=== PATIENT | male | born 1945 | race Caucasian/White ===

== ENCOUNTER 2016-08-19 22:42 | Inpatient (IN) | payer OTHER, MEDICARE ==
[2016-08-19 23:09] VITALS: BMI 16.2
--- NOTE | 2016-08-19 23:42 | PDOC ---
History of Present Illness - General Chief Complaint: Weakness Stated Complaint: WEAKNESS History Source: Patient Exam Limitations: No Limitations - History of Present Illness Initial Comments: 08/19/16 23:41 Patient is a 70 year old male with h/o Liver disease, ascietes due to etoh abuse , does not drink anymore, COPD, appendectomy c/o weakness and unable to urinate. Patient states she self cath but has not been able to pass the catheter for the past 3 days. States he uses a walker but very weak today unable to ambulate. Denies fever, chills, nausea, vomiting PMHD: Dr Berlin Marquez PMHX: as above PSochx; (+) cig 1PPD, etoh stopped drinking, neg drug PFamHX: noncontributory ALL: NKDA GENERAL/CONSTITUTIONAL: [No fever or chills. No weakness. No weight change.] HEAD, EYES, EARS, NOSE AND THROAT: [No change in vision. No ear pain or discharge. No sore throat.] CARDIOVASCULAR: [No chest pain or shortness of breath.] RESPIRATORY: [No cough, wheezing, or hemoptysis.] GASTROINTESTINAL: (+) abdominal distention, No nausea, vomiting, diarrhea or constipation. No rectal bleeding.] GENITOURINARY: [No dysuria, frequency, or change in urination.] MUSCULOSKELETAL: [No joint or muscle swelling or pain. No neck or back pain.] SKIN AND BREASTS: [No rash or easy bruising.] NEUROLOGIC: [No headache, vertigo, loss of consciousness, or loss of sensation.] PSYCHIATRIC: [No depression or anxiety.] ENDOCRINE: [No increased thirst. No abnormal weight change.] HEMATOLOGIC/LYMPHATIC: [No anemia, easy bleeding, or history of blood clots.] ALLERGIC/IMMUNOLOGIC: [No hives or skin allergy. No latex allergy.] GENERAL: [The patient is awake, alert, and fully oriented, in no acute distress , cachectic .] HEAD: [Normal with no signs of trauma.] EYES: [Pupils equal, round and reactive to light, extraocular movements intact, sclera slight icteric, conjunctiva clear.] ENT: [Ears normal, nares patent, oropharynx clear without exudates. Moist mucous membranes.] NECK: [Normal range of motion, supple without lymphadenopathy, JVD, or masses.] LUNGS: [Breath sounds equal, clear to auscultation bilaterally. No wheezes, and no crackles.] HEART: [Regular rate and rhythm, normal S1 and S2 without murmur, rub.] ABDOMEN: [Soft,mild tenderness, (+) distended, normoactive bowel sounds. No guarding, no rebound. No masses.] EXTREMITIES: [Normal range of motion, no edema. No clubbing or cyanosis. No cords, erythema, or tenderness.] NEUROLOGICAL: [Cranial nerves II through XII grossly intact. Normal speech, normal gait.] PSYCH: [Normal mood, normal affect.] SKIN: [Warm, Dry, normal turgor, no rashes or lesions noted.] Past History - Past Medical History Allergies/Adverse Reactions: Allergies Allergy/AdvReac Type Severity Reaction Status Date / Time No Known Allergies Allergy Verified 08/19/16 23:10 Home Medications: Ambulatory Orders Colchicine [Colcrys] 0.6 mg PO DAILY 08/20/16 Rifaximin [Xifaxan] 200 mg PO DAILY 08/20/16 Salmeterol/Fluticasone [Advair 250Mcg/50Mcg -] 2 spray .ROUTE BID 08/20/16 Tiotropium [place] [Spiriva] 1 inh IH DAILY 08/20/16 Asthma: Yes Disorders: Yes (Kidney diseases) - Immunization History Immunization Up to Date: No - Psycho/Social/Smoking Cessation Hx Anxiety: No Suicidal Ideation: No Smoking History: Current every day smoker Have you smoked in the past 12 months: Yes Information on smoking cessation initiated: No Hx Alcohol Use: No Drug/Substance Use Hx: No Substance Use Type: None *Physical Exam - Vital Signs Last Vital Signs Temp Pulse Resp BP Pulse Ox 96.6 F L 84 15 94/61 96 08/19/16 23:06 08/19/16 23:06 08/19/16 23:06 08/19/16 23:06 08/19/16 23:06 ED Treatment Course - LABORATORY CBC & Chemistry Diagram: 08/20/16 01:03 08/20/16 01:40 - RADIOLOGY Radiology Studies Ordered: Category Date Time Status CHEST X-RAY PORTABLE* [RAD] Stat Radiology 08/19/16 23:39 Ordered Medical Decision Making - Medical Decision Making 08/20/16 00:17 Patient is a 70 year old male with h/o Liver disease, ascietes due to etoh abuse , does not drink anymore, COPD, appendectomy c/o weakness and unable to urinate. Patient mostly has retension due to obstruction will do US and pass a underwood. Labs, and US done bedside bladder volu 900ml EKG SR 86, RSD, low voltage CXR neg for acute changes Laboratory Tests 08/20/16 08/20/16 01:03 01:40 WBC 11.3 H Hgb 11.7 Hct 35.8 Plt Count 258 Sodium 135 L Potassium 5.3 H Chloride 97 L Carbon Dioxide 23 Anion Gap 15 BUN 70 H Creatinine 3.3 H Troponin I 0.02 B-Natriuretic Peptide 3397.71 H attempted to pass underwood x 2 and coudau x 2 with out success. Urology paged no response Patient c/o of vomiting and having abd pain, feeling nauseous and difficulty breathing. Patient found to be oxygenation at 80-84 % on 2L NC, will put the patient on BiPAP and given Solumedrol. Given Zofran 4 mg IV will get cxr r/o aspiration, abg 08/20/16 05:46 Case d/w with Dr. Babin who will come to see the patient today. repeat CXR unchanged from prior no aspiration pattern noted. 08/20/16 05:52 D/w with Dr. Carty aware of above will admit to [facility] *DC/Admit/Observation/Transfer Diagnosis at time of Disposition: Acute kidney injury, Urinary retention, Weakness - Discharge Dispostion Condition at time of disposition: Fair Admit: Yes
[2016-08-20 01:47] LABS: BASOPHIL 0.8 % (0-2.0); EOSINOPHIL 0.3 % (0-4.5); MCH 30.1 pg (25.7-33.7); MCHC 32.8 g/dl (32.0-35.9); MEAN CELL VOLUME 91.8 fl (80-96); MEAN PLT VOLUME 10.5 fl (7.5-11.1); NEUTROPHILS 80.5 % (42.8-82.8); PLATELET COUNT 258 K/MM3 (134-434); RDW 16.7 % (11.9-15.9); WHITE BLOOD COUNT 11.3 K/mm3 (4.0-10.0)
[2016-08-20 02:16] LABS: CALCIUM 8.9 mg/dL (8.5-10.1); COCKROFT - GAULT 14.48; CREATININE 3.3 mg/dL (0.7-1.3); TOT PROT 6.7 g/dl (6.4-8.2)
[2016-08-20 02:19] LABS: TROPONIN I 0.02 ng/ml (0.00-0.05)
[2016-08-20] MEDS ORDERED: ONDANSETRON 4 MG/2 ML VIAL IVPUSH ONE (03:14)
[2016-08-20] MEDS ORDERED: ONDANSETRON 4 MG/2 ML VIAL ONE (03:31)
--- NOTE | 2016-08-20 04:25 | PN ---
<BharathihariFay - Last Filed: 08/20/16 04:31> Teaching Attending Note ATTENDING PHYSICIAN STATEMENT I saw and evaluated the patient. I reviewed the resident's note and discussed the case with the resident. I agree with the resident's findings and plan as documented. SUBJECTIVE: 70 yo M with a PMHx of liver disease questionable cirrhosis, prior Hx of ETOH abuse, does not drink anymore, COPD, appendectomy who presents with inability to urinate. Patient is unable to soft catheterize for 3 days. In ED, underwood and catheter were attempted to pass, but unable to due to obstruction. OBJECTIVE: Last Vital Signs Temp Pulse Resp BP Pulse Ox 97.5 F L 90 28 H 98/64 100 08/20/16 02:51 08/20/16 02:51 08/20/16 02:51 08/20/16 02:51 08/20/16 02:51 CBCD WBC 11.3 K/mm3 (4.0-10.0) H 08/20/16 01:03 RBC 3.90 M/mm3 (4.00-5.60) L 08/20/16 01:03 Hgb 11.7 GM/dL (11.7-16.9) 08/20/16 01:03 Hct 35.8 % (35.4-49) 08/20/16 01:03 MCV 91.8 fl (80-96) 08/20/16 01:03 MCHC 32.8 g/dl (32.0-35.9) 08/20/16 01:03 RDW 16.7 % (11.9-15.9) H 08/20/16 01:03 Plt Count 258 K/MM3 (134-434) 08/20/16 01:03 MPV 10.5 fl (7.5-11.1) 08/20/16 01:03 CMP Sodium 135 mmol/L (136-145) L 08/20/16 01:40 Potassium 5.3 mmol/L (3.5-5.1) H 08/20/16 01:40 Chloride 97 mmol/L (98-107) L 08/20/16 01:40 Carbon Dioxide 23 mmol/L (21-32) 08/20/16 01:40 Anion Gap 15 (8-16) 08/20/16 01:40 BUN 70 mg/dL (7-18) H 08/20/16 01:40 Creatinine 3.3 mg/dL (0.7-1.3) H 08/20/16 01:40 Creat Clearance w eGFR 18.57 (>60) 08/20/16 01:40 Calcium 8.9 mg/dL (8.5-10.1) 08/20/16 01:40 Total Bilirubin 1.0 mg/dL (0.2-1.0) 08/20/16 01:40 AST 38 U/L (15-37) H 08/20/16 01:40 ALT 18 U/L (12-78) 08/20/16 01:40 Alkaline Phosphatase 283 U/L (45-117) H 08/20/16 01:40 Total Protein 6.7 g/dl (6.4-8.2) 08/20/16 01:40 Albumin 2.0 g/dl (3.4-5.0) L 08/20/16 01:40 ASSESSMENT AND PLAN: 70 yo M with a PMHx of h/o Liver disease, ascites due to etoh abuse, does not drink anymore, COPD, appendectomy who presents with inability to urinate found to be in acute on chronic renal failure. 1.) Acute on chronic renal failure -baseline creatinine 1.6 -Most likely due to obstruction -Check urine lytes -Renal US -Urology consult -Check U culture 2.) Hyperkalemia -Kxylate -Insulin and dextrose -Repeat K -ECG 3.) COPD -Continue advair and spiriva -Albuterol PRN 4.) Gout -Decrease coltrazine to 0.3 mg QD 5.) Hx of liver disease -Continue rifaximin DVT ppx -Low risk -SCDs Documentation is prepared by Fay Wei acting as biomedical equipment specialist for Danielle Carty D.O. <Danielle Carty - Last Filed: 08/20/16 06:16> Teaching Attending Note Name of Resident: Betzy Hardy COPD Exacerbation - BIPAP/ABG - C/w Duonebs - S/P Solumedrol in ED, continue 60 q12 - RAISS Liver Cirrhosis with Ascites - Renal failure may be due to increased pressure from Ascites - Abdominal US - IR consult for drainage - Fluid Studies/Cx Acute Hypoxic Respiratory Failure Ddx: ? COPD/aspiration Pna (pt. was vomiting prior), Less likely PE (low Wells score) - Wells Score 0 - C/W BIPAP - STAT ABG/CXR - C/W Nebs Vomiting - CT Abdomen wo Con - NPO Hyperkalemia - No Kayexlate- NPO - Insulin/Dextrose/Nebs - FU EKG Admit to Med- Tele with Low threshold for ICU Physical: VS: Vital Signs Period Temp Pulse Resp BP Sys/Rai Pulse Ox Last 24 Hr 96.6 F-97.5 F 84-90 15-28 94-98/61-64 2-100 GEN: Cachetic gentleman resting in bed on Bipap, AA0 X3 HEENT: NCAT, PERRL CARD: RRR S1, S2 Resp: Coarse Breath sounds all lopez, mild expiratory wheezing ABD: Distended, BS present, Non- Tender to palpation, caput medusa EXT: - C/C/E
--- NOTE | 2016-08-20 04:53 | HP ---
CHIEF COMPLAINT: "i cant pee" PCP: Dr Berlin Marquez urologist Dr Becerril HISTORY OF PRESENT ILLNESS: This is a 70 year old M with PMH of atonic bladder for years, Past EtOH abuse ( quit), alcoholic Liver disease, ascietes and COPD, who presented with weakness and unable to insert straight cath for 3 days. He has been trying to insert cath repeatedly and caused some bleeding. He has not been hydrating during this period. He uses cath 2x/day and has has uti 2x before. He sees a urologist Dr Becerril in [place] who checked his prostate a few month ago w/o acute findings. He does not know why he acquired atonic bladder and denies back injury or cva. He has been progressively weaker with increased abd distention for the past few days. He reports 20 lb weight loss despite decent appetite and constant non bloody nonmelenous diarrhea for the past 3 mo. He had a colonoscopy a few yrs ago at which time polyps were removed. He has had several liters of ascites drained a few months ago. At baseline he ambulates with a walker but unable to do so recently due to weakness. He is a current heady smoker and has baseline sob with cough productive of yellow sputum, not on O2, whihc remained at baseline. He denies fever, chills. Bladder scan in ED 900cc. Unable to insert underwood. In ed he became nauseous and had several episodes of NBNB vomiting. He then desats RA 78% and is placed on BIPAP. ER course was notable for: (1)labs (2)cxr (3)zofran Recent Travel: denies PAST MEDICAL HISTORY: as above PAST SURGICAL HISTORY: appendectomy Social History: Smokin pack/day Alcohol:past abuse Drugs: denies Family History: prostate ca, skin ca Allergies No Known Allergies Allergy (Verified 08/19/16 23:10) HOME MEDICATIONS: Home Medications Medication Instructions Recorded Colchicine [Colcrys] 0.6 mg PO DAILY 08/20/16 Rifaximin [Xifaxan] 200 mg PO DAILY 08/20/16 Salmeterol/Fluticasone [Advair 2 spray .ROUTE BID 08/20/16 250Mcg/50Mcg -] Tiotropium [place] [Spiriva] 1 inh IH DAILY 08/20/16 REVIEW OF SYSTEMS CONSTITUTIONAL: Absent: fever, chills, diaphoresis HEENT: Absent: rhinorrhea, nasal congestion, throat pain CARDIOVASCULAR: Absent: chest pain, syncope, palpitations, irregular heart rate, lightheadedness , peripheral edema RESPIRATORY: Absent: orthopnea, wheezing, stridor, hemoptysis GASTROINTESTINAL: Absent: abdominal pain, constipation, melena, hematochezia GENITOURINARY: Absent: dysuria, flank pain MUSCULOSKELETAL: Absent: myalgia, arthralgia SKIN: Absent: rash, itching, pallor HEMATOLOGIC/IMMUNOLOGIC: Absent: easy bleeding, easy bruising ENDOCRINE: Absent: heat intolerance, cold intolerance NEUROLOGIC: Absent: headache, focal weakness or paresthesias PSYCHIATRIC: Absent: anxiety, depression PHYSICAL EXAMINATION Vital Signs - 24 hr 08/19/16 08/20/16 08/20/16 23:06 01:03 02:51 Temperature 96.6 F L 97.5 F L Pulse Rate 84 Pulse Rate [ 90 Right Radial] Respiratory 15 28 H Rate Blood Pressure 94/61 Blood Pressure 98/64 [Left Arm] O2 Sat by Pulse 96 2 L 100 Oximetry (%) GENERAL: Awake, alert, and fully oriented, in mild distress, very cachectic. HEAD: Normal with no signs of trauma. EYES: Pupils equal, round and reactive to light, extraocular movements intact, sclera anicteric, conjunctiva clear. No lid lag. EARS, NOSE, THROAT: dry mucous membranes. NECK: supple LUNGS: diffusely reduced, coarse breath sounds HEART: Regular rate and rhythm, normal S1 and S2 ABDOMEN: very distended, caput medusa, + fluid wave, hepatomegaly, full bladder , diffusely reduced bowel sounds MUSCULOSKELETAL: No CVA tenderness. UPPER EXTREMITIES: 2+ pulses, No peripheral edema. LOWER EXTREMITIES: 2+ pulses, warm, well-perfused. No calf tenderness. No peripheral edema. NEUROLOGICAL: Cranial nerves II-XII grossly intact. slightly dyspneic speech. PSYCHIATRIC: Cooperative. Good eye contact. Appropriate mood and affect. SKIN: Warm, dry Laboratory Results - last 24 hr 08/20/16 08/20/16 01:03 01:40 WBC 11.3 H RBC 3.90 L Hgb 11.7 Hct 35.8 MCV 91.8 MCHC 32.8 RDW 16.7 H Plt Count 258 MPV 10.5 Neutrophils % 80.5 Lymphocytes % 14.8 Monocytes % 3.6 L Eosinophils % 0.3 Basophils % 0.8 Sodium 135 L Potassium 5.3 H Chloride 97 L Carbon Dioxide 23 Anion Gap 15 BUN 70 H Creatinine 3.3 H Creat Clearance w eGFR 18.57 Random Glucose 84 Calcium 8.9 Total Bilirubin 1.0 AST 38 H ALT 18 Alkaline Phosphatase 283 H Creatine Kinase 27 L Troponin I 0.02 B-Natriuretic Peptide 3397.71 H Total Protein 6.7 Albumin 2.0 L ASSESSMENT/PLAN: This is a 70 year old M with PMH of atonic bladder for years, Past EtOH abuse ( quit), alcoholic Liver disease, ascietes and COPD, who presented with weakness and unable to insert straight cath for 3 days. OLIVER -likely due to obstruction at bladder level, creat 3.3, BNP elevated due to renal failure -chronic atonic bladder with possible prostate cause vs ascites causing abd compartment syndrome -flomax 0.8, attempt to insert underwood -UA -Urology consult -US kidneys, bladder, prostate -urine lytes, creat, Na -Renal consult -Start IV hydration once underwood inserted Acute hypoxic respiratory failure, possible COPD exacerbation -CXR no infiltrate -abg -bipap -spiriva, albuterol -s/p medrol 125 ED, continue 40 q 8 alcoholic liver disease -severe ascites -calculate MELD once IRN comes back -CT abd r/o compartment syndrome -US abd ascites -NPO Diarrhea x 3 mo -c diff toxin Cachexia -recent 20 lb weight loss -nutrition consult Current smoker -counseled on quitting -nicotine patch FEN no ivf hyperkalemia treated, f/u K NPO except meds SCD Dispo: tele Visit type - Emergency Visit Emergency Visit: Yes Care time: The patient presented to the Emergency Department on the above date and was hospitalized for further evaluation of their emergent condition. - New Patient This patient is new to me today: Yes Date on this admission: 08/20/16 - Critical Care Critical Care patient: No
[2016-08-20] MEDS ORDERED: ALBUTEROL SO4 2.5/IPRATROPIUM 0.5 INH SOL 3 ML VIAL.NEB. NEB ONE ×3 (05:15→05:20)
[2016-08-20] MEDS ORDERED: methylPREDNISolone NA SUCC 125 MG/2 ML VIAL ONE (05:21)
[2016-08-20] MEDS ORDERED: ALBUTEROL SO4 0.083% IH SOL 2.5 MG/3 ML VIAL.NEB. NEB PRN ×2 (05:53→14:56)
[2016-08-20] MEDS ORDERED: TAMSULOSIN HCL 0.4 MG CAP.ER.24H (FP) PO ONE (05:53)
[2016-08-20] MEDS ORDERED: INSULIN REGULAR HUMAN 100 UNITS/ML *VIAL IVPUSH ONE (06:19)
[2016-08-20] MEDS ORDERED: CALCIUM GLUCONATE 10% - 1,000 MG/10 ML VIAL IVPUSH ONE (06:20)
[2016-08-20] MEDS ORDERED: DEXTROSE 50%-WATER 50 ML VIAL IVPUSH ONE (06:20)
[2016-08-20] MEDS ORDERED: TAMSULOSIN HCL 0.4 MG CAP.ER.24H (FP) ONE (06:25)
[2016-08-20] MEDS ORDERED: methylPREDNISolone NA SUCC 125 MG/2 ML VIAL IVPB ONE (06:30)
[2016-08-20] MEDS ORDERED: DEXTROSE 50%-WATER 50 ML DISP.SYRIN ONE (06:52)
[2016-08-20 07:21] LABS: ALLENS TEST POSITIVE; ART PUNCT SITE RIGHT RADIAL; ARTERIAL BLD GAS O2 SATURATION 88.2 % (90-98.9); ARTERIAL BLOOD GAS BASE EXCESS -4.7 meq/l (-2-2); ARTERIAL BLOOD GAS HCO3 18.9 meq/L (22-26); ARTERIAL BLOOD GAS pH 7.39 (7.35-7.45); LPM/O2% 60%; MECH. VENT. BIPAP; PT. ON O2? YES; TYPE OF O2 BIPAP; VENT RATE 14
[2016-08-20 08:38] LABS: MCHC 33.5 g/dl (32.0-35.9); MEAN CELL VOLUME 92.5 fl (80-96); MEAN PLT VOLUME 11.1 fl (7.5-11.1); PLATELET COUNT 232 K/MM3 (134-434); RDW 16.5 % (11.9-15.9); WHITE BLOOD COUNT 9.6 K/mm3 (4.0-10.0)
[2016-08-20 08:44] LABS: CALCIUM 9.4 mg/dL (8.5-10.1); COCKROFT - GAULT 14.48; CREATININE 3.3 mg/dL (0.7-1.3); MAGNESIUM 2.2 mg/dL (1.8-2.4); PHOSPHOROUS 5.9 mg/dL (2.5-4.9)
[2016-08-20 09:11] LABS: INR 1.11 (0.82-1.09); PROTHROMBIN TIME (PATIENT) 12.2 SEC (9.98-11.88)
[2016-08-20 09:14] LABS: ACTIVATED PTT 38.7 SECONDS (26.9-34.4)
--- NOTE | 2016-08-20 09:17 | PN ---
Progress Note (short form) - Note Progress Note: PATIENT WITH HISTORY OF ATONIC BLADDER WHO HAS NOT BEEN ABLE TO SELF CATH IN THREE DAYS,. MULTIPLE ATTEMPTS BY ER STAFF WERE UNSUCCESSFUL PATIENT IS ON THE ADD-ON SCHEDULE FOR THE OR TODAY KEEP NPO
[2016-08-20] MEDS ORDERED: COLCHICINE 0.6 MG TABLET (FP) PO SCH (10:00)
[2016-08-20] MEDS ORDERED: methylPREDNISolone NA SUCC 125 MG/2 ML VIAL IVPB SCH (10:00)
[2016-08-20] MEDS ORDERED: NICOTINE 21 MG/24 HOURS TOPICAL PATCH TD SCH (10:00)
[2016-08-20] MEDS ORDERED: FLUTICASONE/SALMETEROL 100 MCG/50 MCG DISKUS IH SCH (10:00)
[2016-08-20] MEDS ORDERED: RIFAXIMIN 200 MG TABLET PO SCH (10:00)
[2016-08-20] MEDS ORDERED: ACLIDINIUM BROMIDE 400 MCG/INH AERO.POWD IH SCH (10:00)
[2016-08-20] MEDS ORDERED: LIDOCAINE HCL 2% JELLY 10 ML CARTRIDGE ONE (12:35)
--- NOTE | 2016-08-20 13:30 | EKG ---
Test Reason : Blood Pressure : / mmHG Vent. Rate : 086 BPM Atrial Rate : 086 BPM P-R Int : 162 ms QRS Dur : 062 ms QT Int : 362 ms P-R-T Axes : 090 076 071 degrees QTc Int : 433 ms NORMAL SINUS RHYTHM RIGHT ATRIAL ENLARGEMENT BASELINE ARTIFACT LOW VOLTAGE QRS BORDERLINE ECG NO PREVIOUS ECGS AVAILABLE Confirmed by MARGARET BILLINGS MD ([id number]) on 08/20/2016 1:30:21 PM Referred By: Confirmed By:MARGARET BILLINGS MD
--- NOTE | 2016-08-20 13:41 | CONSULT ---
Consult Consult Specialty:: Nephrology Reason for Consultation:: CKD - History of Present Illness Chief Complaint: weakness and inability to self catheterize History of Present Illness: Pt is a 70 year old male with pmhx of liver cirrhosis, CKD, hx of etoh abuse, COPD and incontinence. He says he has history of CKD. He self catheterizes twice per day. He also complains of weakness. He does have shortness of breath. He also complains of ascites. He was taken to IR and had about 7 liters drained. He is going to the OR to have a underwood catheter placed. He denies fevers or chills. - History Source History Provided By: Patient, Medical Record - Past Medical History Pulmonary: Yes: COPD Hepatobiliary: Yes: Cirrhosis Renal/: Yes: Neurogenic Bladder - Past Surgical History Past Surgical History: Yes: Appendectomy - Alcohol/Substance Use Hx Alcohol Use: No - Smoking History Smoking history: Current every day smoker Have you smoked in the past 12 months: Yes Home Medications - Allergies Allergies/Adverse Reactions: Allergies Allergy/AdvReac Type Severity Reaction Status Date / Time No Known Allergies Allergy Verified 08/19/16 23:10 - Home Medications Home Medications: Ambulatory Orders Colchicine [Colcrys] 0.6 mg PO DAILY 08/20/16 Rifaximin [Xifaxan] 200 mg PO DAILY 08/20/16 Salmeterol/Fluticasone [Advair 250Mcg/50Mcg -] 2 spray .ROUTE BID 08/20/16 Tiotropium [place] [Spiriva] 1 inh IH DAILY 08/20/16 Family Disease History - Family Disease History Family History: Denies Review of Systems - Review of Systems Constitutional: reports: Malaise Eyes: reports: No Symptoms HENT: reports: No Symptoms Neck: reports: No Symptoms Cardiovascular: reports: Shortness of Breath Respiratory: reports: SOB on Exertion Gastrointestinal: reports: Bloating, Other (ascites) Genitourinary: reports: Dysuria Musculoskeletal: reports: No Symptoms Integumentary: reports: No Symptoms Neurological: reports: No Symptoms Endocrine: reports: No Symptoms Psychiatric: reports: No Symptoms Physical Exam Vital Signs: Vital Signs Temperature 98.6 F 08/20/16 06:17 Pulse Rate 90 08/20/16 11:00 Respiratory Rate 26 H 08/20/16 11:00 Blood Pressure 122/64 08/20/16 11:00 O2 Sat by Pulse Oximetry (%) 97 08/20/16 11:00 Constitutional: Yes: Calm Eyes: Yes: Conjunctiva Clear HENT: Yes: Atraumatic Neck: Yes: Supple Cardiovascular: Yes: S1, S2 Respiratory: Yes: On Venti-Mask, Wheezes Gastrointestinal: Yes: Soft Musculoskeletal: Yes: Muscle Weakness Edema: No Neurological: Yes: Oriented Psychiatric: Yes: Oriented Labs: CBC, BMP 08/20/16 08:00 08/20/16 08:00 Laboratory Tests 08/20/16 08/20/16 08/20/16 01:03 01:40 08:00 WBC 11.3 H 9.6 Hgb 11.7 12.1 Plt Count 258 232 Sodium 135 L Potassium 5.3 H Chloride 97 L Carbon Dioxide 23 Anion Gap 15 BUN 70 H Creatinine 3.3 H Phosphorus Magnesium AST 38 H ALT 18 Alkaline Phosphatase 283 H Troponin I 0.02 B-Natriuretic Peptide 3397.71 H Total Protein 6.7 Albumin 2.0 L 08/20/16 08:00 WBC Hgb Plt Count Sodium 136 Potassium 4.9 Chloride 98 Carbon Dioxide 22 Anion Gap 16 BUN 71 H Creatinine 3.3 H Phosphorus 5.9 H Magnesium 2.2 AST ALT Alkaline Phosphatase Troponin I B-Natriuretic Peptide Total Protein Albumin Imaging - Results Cat Scan: Report Reviewed (ascites and bladder distention) Problem List - Problems (1) Urinary retention Code(s): R33.9 - RETENTION OF URINE, UNSPECIFIED (2) Liver cirrhosis Code(s): K74.60 - UNSPECIFIED CIRRHOSIS OF LIVER (3) CKD (chronic kidney disease) Code(s): N18.9 - CHRONIC KIDNEY DISEASE, UNSPECIFIED Assessment/Plan Current Medications Generic Name Dose Route Start Last Admin Trade Name Freq PRN Reason Stop Dose Admin Aclidinium [place] 1 puff 08/20/16 10:00 Tudorza - IH BID DEMETRIUS Albuterol Sulfate 1 amp 08/20/16 05:53 Ventolin 0.083% Nebulizer Soln - NEB Q4H PRN SHORT OF BREATH/WHEEZING Methylprednisolone Sodium Succinate 40 mg 08/20/16 14:00 Solu-Medrol - IVPB TID DEMETRIUS Nicotine 21 mg 08/20/16 10:00 Nicoderm Patch - TD DAILY DEMETRIUS Fluticasone/Salmeterol 1 puff 08/20/16 10:00 Advair 100mcg/50mcg - IH BID DEMETRIUS Impression 1. CKD with unclear baseline creatinine 2. liver cirrhosis 3. COPD 4. hx of etoh abuse 5. ascites 6. dysuria Plan - check ua - repeat labs in am - will hold of diuretics as pt had about 7 liters removed - discussed with urology, they will place underwood catheter - monitor output - will follow
[2016-08-20] MEDS ORDERED: PROPOFOL 20 ML ONE (13:48)
[2016-08-20] MEDS ORDERED: ROCURONIUM BROMIDE 50 MG/5 ML VIAL ONE (13:48)
[2016-08-20] MEDS ORDERED: methylPREDNISolone NA SUCC 40 MG/1 ML VIAL IVPB SCH (14:00)
[2016-08-20] MEDS ORDERED: MIDAZOLAM HCL 2 MG/2 ML SINGLE DOSE VIAL ONE (14:12)
[2016-08-20] MEDS ORDERED: ceFAZolin SODIUM 1 GM VIAL IVPB ONE (14:15)
[2016-08-20] MEDS ORDERED: LIDOCAINE HCL 2% JELLY 10 ML CARTRIDGE TP ONE (14:16)
[2016-08-20] MEDS ORDERED: ceFAZolin SODIUM 1 GM VIAL ONE (14:26)
[2016-08-20] MEDS ORDERED: ONDANSETRON 4 MG/2 ML VIAL IVPUSH PRN (14:38)
--- NOTE | 2016-08-20 14:41 | OP ---
Operative Note - Note: Operative Date: 08/20/16 Pre-Operative Diagnosis: urinary retention, stricture Operation: cysto, urethral dilation, underwood cath placement Surgeon: Derrick Hernandez Anesthesiologist/SHIP JOINER: Rick Buckner Anesthesia: Local, Fractional Drains & Tubes with Location: 16 [address] underwood
[2016-08-20] MEDS ORDERED: LACTATED RINGERS SOLUTION 1,000 ML IV SCH (14:45)
[2016-08-20 17:36] LABS: PERITONEAL FLUID LYMPHOCYTE 24 %; PERITONEAL FLUID MONOCYTE 12 %; PERITONEAL FLUID NEUTROPHIL 31 %
[2016-08-20 17:37] LABS: PERITONEAL FLUID MACROPHAGE 33 %
[2016-08-20 18:13] LABS: URINE APPEARANCE SLCLOUDY; URINE BILIRUBIN NEGATIVE (NEGATIVE); URINE COLOR DKYELLOW; URINE GLUCOSE (UA) NEGATIVE (NEGATIVE); URINE KETONE NEGATIVE (NEGATIVE); URINE NITRITE NEGATIVE (NEGATIVE); URINE PROTEIN NEGATIVE (NEGATIVE); URINE UROBILINOGEN NEGATIVE E.U./dl (0.2-1.0)
[2016-08-20 18:17] LABS: URINE BLOOD 2+ (NEGATIVE); URINE LEUK ESTERASE 1+ (NEGATIVE)
[2016-08-20] MEDS ORDERED: DEXTROSE 5%-0.45% SALINE 1,000 ML IV SCH ×2 (19:00→20:11)
[2016-08-20 19:06] LABS: SODIUM,RANDOM URINE 11 MMOL/L
[2016-08-20 19:08] LABS: CHLORIDE,RANDOM URINE < 10 MMOL/L; URINE CREATININE 71.9 mg/dL (20-370)
--- NOTE | 2016-08-20 19:50 | PN ---
Physical Exam: SUBJECTIVE: Patient seen and examined at bedside. "I have a horrible headache." OBJECTIVE: Vital Signs Period Temp Pulse Resp BP Sys/Rai Pulse Ox Last 24 Hr 97.5 F-98.6 F 89-101 14-31 76-122/47-72 90-100 GENERAL: The patient is awake, alert, and fully oriented. Speaking through BIPAP mask. Emaciated. No body fat. Protruding clavicles and ribs. HEAD: Temporal wasting EENT: dry mucous membranes LUNGS: On BIPAP, mechanical breath sounds. No wheezing or rhonchi appreciated. HEART: Regular rate and rhythm, S1, S2 without murmur, rub or gallop. ABDOMEN: Soft, nontender, nondistended, no guarding, no rebound; underwood in place , scant amount of cloudy yellow urine EXTREMITIES: 2+ pulses, warm, well-perfused, no edema. Thin bones. No muscle tone. NEUROLOGICAL: Cranial nerves II through XII grossly intact. Normal speech Laboratory Results - last 24 hr 08/20/16 08/20/16 08/20/16 07:10 08:00 08:00 WBC 9.6 RBC 3.91 L Hgb 12.1 Hct 36.1 MCV 92.5 MCHC 33.5 RDW 16.5 H Plt Count 232 MPV 11.1 INR PTT (Actin FS) Puncture Site Right radial ABG pH 7.39 ABG pCO2 at Pt Temp 31.8 L ABG pO2 at Pt Temp 59.0 L ABG HCO3 18.9 L ABG O2 Sat (Measured) 88.2 L ABG O2 Content 14.0 L ABG Base Excess -4.7 L Kip Test Positive O2 Delivery Device Bipap Oxygen Flow Rate 60% Vent Mode S/t Vent Rate 14 Mechanical Rate Bipap PEEP 0.0 Pressure Support Vent 12/5 Sodium 136 Potassium 4.9 Chloride 98 Carbon Dioxide 22 Anion Gap 16 BUN 71 H Creatinine 3.3 H Random Glucose 95 Calcium 9.4 Phosphorus 5.9 H Magnesium 2.2 Urine Color Urine Appearance Urine pH Urine Protein Urine Glucose (UA) Urine Ketones Urine Blood Urine Nitrite Urine Bilirubin Urine Urobilinogen Ur Leukocyte Esterase Urine WBC Urine Bacteria Hyaline Casts Urine Mucus Ur Random Sodium Ur Random Potassium Ur Random Chloride Urine Creatinine Urine Sodium Peritoneal WBC Peritoneal RBC Periton Neutrophils Periton Lymphocytes Peritoneal Monocytes Periton Macrophages Peritoneal Tot Protein Peritoneal Albumin Peritoneal LDH Peritoneal Glucose Peritoneal Amylase Peritoneal Triglycerid 08/20/16 08/20/16 08/20/16 08:00 12:30 16:30 WBC RBC Hgb Hct MCV MCHC RDW Plt Count MPV INR 1.11 PTT (Actin FS) 38.7 H Puncture Site ABG pH ABG pCO2 at Pt Temp ABG pO2 at Pt Temp ABG HCO3 ABG O2 Sat (Measured) ABG O2 Content ABG Base Excess Kip Test O2 Delivery Device Oxygen Flow Rate Vent Mode Vent Rate Mechanical Rate PEEP Pressure Support Vent Sodium Potassium Chloride Carbon Dioxide Anion Gap BUN Creatinine Random Glucose Calcium Phosphorus Magnesium Urine Color Dkyellow Urine Appearance Slcloudy Urine pH 5.0 Urine Protein Negative Urine Glucose (UA) Negative Urine Ketones Negative Urine Blood 2+ H Urine Nitrite Negative Urine Bilirubin Negative Urine Urobilinogen Negative Ur Leukocyte Esterase 1+ H Urine WBC <1 Urine Bacteria Many Hyaline Casts 12 Urine Mucus Rare Ur Random Sodium Ur Random Potassium Ur Random Chloride Urine Creatinine Urine Sodium Peritoneal WBC 205 Peritoneal RBC 397 Periton Neutrophils 31 Periton Lymphocytes 24 Peritoneal Monocytes 12 Periton Macrophages 33 Peritoneal Tot Protein 2 Peritoneal Albumin 1 Peritoneal LDH 38 Peritoneal Glucose 95 Peritoneal Amylase 13 Peritoneal Triglycerid 100 08/20/16 16:30 WBC RBC Hgb Hct MCV MCHC RDW Plt Count MPV INR PTT (Actin FS) Puncture Site ABG pH ABG pCO2 at Pt Temp ABG pO2 at Pt Temp ABG HCO3 ABG O2 Sat (Measured) ABG O2 Content ABG Base Excess Kip Test O2 Delivery Device Oxygen Flow Rate Vent Mode Vent Rate Mechanical Rate PEEP Pressure Support Vent Sodium Potassium Chloride Carbon Dioxide Anion Gap BUN Creatinine Random Glucose Calcium Phosphorus Magnesium Urine Color Urine Appearance Urine pH Urine Protein Urine Glucose (UA) Urine Ketones Urine Blood Urine Nitrite Urine Bilirubin Urine Urobilinogen Ur Leukocyte Esterase Urine WBC Urine Bacteria Hyaline Casts Urine Mucus Ur Random Sodium 11 Ur Random Potassium 35.6 Ur Random Chloride < 10 Urine Creatinine 71.9 Urine Sodium Cancelled Peritoneal WBC Peritoneal RBC Periton Neutrophils Periton Lymphocytes Peritoneal Monocytes Periton Macrophages Peritoneal Tot Protein Peritoneal Albumin Peritoneal LDH Peritoneal Glucose Peritoneal Amylase Peritoneal Triglycerid Active Medications Generic Name Dose Route Start Last Admin Trade Name Freq PRN Reason Stop Dose Admin Aclidinium [place] 1 puff 08/20/16 22:00 Tudorza - IH BID DEMETRIUS Albuterol Sulfate 1 amp 08/20/16 14:56 08/20/16 16:00 Ventolin 0.083% Nebulizer Soln - NEB 1 amp Q4H PRN Administration SHORT OF BREATH/WHEEZING Fentanyl 25 mcg 08/20/16 14:38 Sublimaze Injection - IVPUSH 08/23/16 14:39 [id number] PRN PAIN Dextrose/Sodium Chloride 1,000 mls @ 75 mls/hr 08/20/16 19:00 D5-1/2ns - IV ASDIR [facility] Methylprednisolone Sodium Succinate 40 mg 08/20/16 22:00 Solu-Medrol - IVPB TID DEMETRIUS Nicotine 21 mg 08/21/16 10:00 Nicoderm Patch - TD DAILY [facility] Ondansetron HCl 4 mg 08/20/16 14:38 Zofran Injection IVPUSH 08/20/16 20:39 Q6H PRN NAUSEA AND/OR VOMITING Fluticasone/Salmeterol 1 puff 08/20/16 22:00 Advair 100mcg/50mcg - IH BID [facility] ASSESSMENT/PLAN 70 year-old man with a PMH of liver cirrhosis with ascites, ETOH abuse, COPD, and atonic bladder who was admitted for urinary retention. Pneumonia Hypoxic respiratory failure --PaO2 59, satting 88% on 60% FiO2 --repeat ABG --CTAP shows consolidation LL base; CT chest pending --start empiric azithro and ceftriaxone COPD --imaging shows hyperaerated lungs --continue IV steroids, Advair, Tudorza Atonic bladder Urinary retention --12mm bladder calculus seen on CT imaging --taken to OR, underwent cysto, urethral dilation, and 16f underwood catheter placement --scant amount of cloudy urine observed this evening, EMR shows 200 UOP; mildly hypotensive, appears very dry --increase IV fluids Acute kidney injury --Cr 3.3, baseline unknown --IV fluids Liver cirrhosis Ascites Transaminitis --imaging shows cirrhotic liver and massive ascites; paracentesis today by IR , drained 7L; peritoneal fluid studies pending --elevated AST and alk phos --ggt ordered Hyperproteinemia --protein gap 4.7 --SPEP and UPEP ordered Headache --CT head ordered F/E/N Fluids: D51/2NS @ 125mL/hr Electrolytes: replete as indicated Nutrition: regular diet DVT prophylaxis: hold chemical prophylaxis since s/p paracentesis today; start tomorrow if no bleeding issues; SCDs Physical therapy evaluation Dispo: continues to require inpatient care. Full Code. Visit type - Emergency Visit Emergency Visit: Yes ED Registration Date: 08/20/16 Care time: The patient presented to the Emergency Department on the above date and was hospitalized for further evaluation of their emergent condition. - New Patient This patient is new to me today: No - Critical Care Critical Care patient: Yes Total Critical Care Time (in minutes): 90 Critical Care Statement: The care of this patient involved high complexity decision making to prevent further life threatening deterioration of the patient 's condition and/or to evalute & treat vital organ system(s) failure or risk of failure.
[2016-08-20] MEDS: morphine CARPU-JECT 2 MG/1 ML DISP.SYRIN IVPUSH PRN (21:01)
[2016-08-20] MEDS: methylPREDNISolone NA SUCC 40 MG/1 ML VIAL IVPB SCH (21:07)
[2016-08-20] MEDS: CEFTRIAXONE 50 ML IVPB SCH (22:00)
[2016-08-20] MEDS: AZITHROMYCIN IVPB 250 ML IVPB SCH (22:00)
[2016-08-20] MEDS: FLUTICASONE/SALMETEROL 100 MCG/50 MCG DISKUS IH SCH (22:02)
[2016-08-20] MEDS: ACLIDINIUM BROMIDE 400 MCG/INH AERO.POWD IH SCH (22:02)
--- NOTE | 2016-08-20 22:12 | OP ---
DATE OF OPERATION: 08/20/2016 PREOPERATIVE DIAGNOSES: Urinary retention, atonic bladder, urethral stricture. POSTOPERATIVE DIAGNOSES: Urinary retention, atonic bladder, urethral stricture. PROCEDURE: Cystoscopy, dilation of urethral stricture, and placement of Damico catheter. ANESTHESIA: Rick Buckner MD: Local with sedation. FINDINGS: A distal urethral stricture. DAMICO CATHETER: A 16-Scottish Councill tip. SURGEON: Derrick Hernandez MD PREOPERATIVE INDICATIONS: The patient is a 70-year-old male with a history of an atonic bladder, who does self-catheterization at home. He has been unable to catheterize himself for the last [address] scan in the ER reveals massively dilated bladder. Patient also has end-stage liver disease and has massive ascites throughout his abdomen. He has chronic obstructive pulmonary disease as well. He [place] the city by another urologist. He is brought to the OR for cystoscopy. OPERATION: The patient was brought to the OR, placed on the table in the supine position, given IV sedation, local Urojet was used. Groin was prepped and draped sterilely. Time-out was performed. IV antibiotics were given. Cystoscopy was performed. The urethral meatus accommodated a 22-Scottish scope well; however, there was tightening and some injury noted in the pendulous urethra. A wire was passed into the bladder and the area was dilated up to 22-Scottish easily and the scope otherwise was easily passed into the bladder. Patient had a normal-appearing prostate. He did have an intact-appearing bladder. No tumors or stones were seen. However, when the scope was introduced into the bladder and the bladder urine was drained, it was very foul-smelling. A separate urine culture was then sent. Over a wire, a 16-Scottish Councill-tip catheter was easily passed into the bladder. The balloon was inflated and the wire was removed. The patient was woken up. DERRICK HERNANDEZ M.D. [id number]
[2016-08-20 23:11] LABS: ARTERIAL BLOOD GAS BASE EXCESS -4.6 meq/l (-2-2); ARTERIAL BLOOD GAS pH 7.35 (7.35-7.45)
[2016-08-20 23:12] LABS: ALLENS TEST POSITIVE; ART PUNCT SITE RIGHT BRACHIAL; ARTERIAL BLD GAS O2 SATURATION 82.3 % (90-98.9); ARTERIAL BLOOD GAS HCO3 19.8 meq/L (22-26); ARTERIAL BLOOD GAS PO2 52.2 mmHg (70-100); LPM/O2% 60%; PT. ON O2? YES; TYPE OF O2 BIPAP; VENT RATE 14
[2016-08-21] MEDS ORDERED: DEXTROSE 5%-0.45% SALINE 1,000 ML IV SCH (05:30)
[2016-08-21] MEDS: methylPREDNISolone NA SUCC 40 MG/1 ML VIAL IVPB SCH (06:28)
[2016-08-21] MEDS: morphine CARPU-JECT 2 MG/1 ML DISP.SYRIN IVPUSH PRN (06:31)
[2016-08-21 07:32] LABS: ARTERIAL BLD GAS O2 SATURATION 99.7 % (90-98.9); ARTERIAL BLOOD GAS BASE EXCESS -5.4 meq/l (-2-2); ARTERIAL BLOOD GAS HCO3 19.9 meq/L (22-26)
[2016-08-21 07:33] LABS: ALLENS TEST POSITIVE; ART PUNCT SITE RIGHT RADIAL; LPM/O2% 100; PT. ON O2? YES; TYPE OF O2 BIPAP
[2016-08-21 07:34] LABS: ARTERIAL BLOOD GAS pH 7.32 (7.35-7.45); VENT RATE 14; VT/PRESS EPAP 6
--- NOTE | 2016-08-21 07:48 | PN ---
Physical Exam: SUBJECTIVE: Patient seen and examined on floor and in ICU. Brother and friend present. OBJECTIVE: Vital Signs Period Temp Pulse Resp BP Sys/Rai Pulse Ox Last 24 Hr 97.5 F-98.3 F 87-101 18-31 76-122/47-72 89-100 GENERAL: The patient is A&O x 3. Weak, speaks barely audible whisper. Cachectic. HEAD: Temporal wasting EENT: dry mucous membranes LUNGS: On BIPAP, mechanical breath sounds. No wheezing or rhonchi appreciated. HEART: Regular rate and rhythm, S1, S2 without murmur, rub or gallop. ABDOMEN: Soft, nontender, nondistended, no guarding, no rebound; underwood in place , no UOP. EXTREMITIES: 2+ pulses, warm, well-perfused, no edema. Thin bones. No muscle tone. NEUROLOGICAL: Cranial nerves II through XII grossly intact. Normal speech. Laboratory Results - last 24 hr 08/20/16 08/20/16 08/20/16 08:00 08:00 08:00 WBC 9.6 RBC 3.91 L Hgb 12.1 Hct 36.1 MCV 92.5 MCHC 33.5 RDW 16.5 H Plt Count 232 MPV 11.1 INR 1.11 PTT (Actin FS) 38.7 H Puncture Site ABG pH ABG pCO2 at Pt Temp ABG pO2 at Pt Temp ABG HCO3 ABG O2 Sat (Measured) ABG O2 Content ABG Base Excess Kip Test O2 Delivery Device Oxygen Flow Rate Vent Mode Vent Rate PEEP Pressure Support Vent Sodium 136 Potassium 4.9 Chloride 98 Carbon Dioxide 22 Anion Gap 16 BUN 71 H Creatinine 3.3 H Random Glucose 95 Lactic Acid Calcium 9.4 Phosphorus 5.9 H Magnesium 2.2 Urine Color Urine Appearance Urine pH Ur Specific [place] Urine Protein Urine Glucose (UA) Urine Ketones Urine Blood Urine Nitrite Urine Bilirubin Urine Urobilinogen Ur Leukocyte Esterase Urine WBC Urine Bacteria Hyaline Casts Urine Mucus Ur Random Sodium Ur Random Potassium Ur Random Chloride Urine Creatinine Urine Sodium Peritoneal WBC Peritoneal RBC Periton Neutrophils Periton Lymphocytes Peritoneal Monocytes Periton Macrophages Peritoneal Tot Protein Peritoneal Albumin Peritoneal LDH Peritoneal Glucose Peritoneal Amylase Peritoneal Triglycerid 08/20/16 08/20/16 08/20/16 12:30 16:30 16:30 WBC RBC Hgb Hct MCV MCHC RDW Plt Count MPV INR PTT (Actin FS) Puncture Site ABG pH ABG pCO2 at Pt Temp ABG pO2 at Pt Temp ABG HCO3 ABG O2 Sat (Measured) ABG O2 Content ABG Base Excess Kip Test O2 Delivery Device Oxygen Flow Rate Vent Mode Vent Rate PEEP Pressure Support Vent Sodium Potassium Chloride Carbon Dioxide Anion Gap BUN Creatinine Random Glucose Lactic Acid Calcium Phosphorus Magnesium Urine Color Dkyellow Urine Appearance Slcloudy Urine pH 5.0 Ur Specific [place] 1.010 Urine Protein Negative Urine Glucose (UA) Negative Urine Ketones Negative Urine Blood 2+ H Urine Nitrite Negative Urine Bilirubin Negative Urine Urobilinogen Negative Ur Leukocyte Esterase 1+ H Urine WBC <1 Urine Bacteria Many Hyaline Casts 12 Urine Mucus Rare Ur Random Sodium 11 Ur Random Potassium 35.6 Ur Random Chloride < 10 Urine Creatinine 71.9 Urine Sodium Cancelled Peritoneal WBC 205 Peritoneal RBC 397 Periton Neutrophils 31 Periton Lymphocytes 24 Peritoneal Monocytes 12 Periton Macrophages 33 Peritoneal Tot Protein 2 Peritoneal Albumin 1 Peritoneal LDH 38 Peritoneal Glucose 95 Peritoneal Amylase 13 Peritoneal Triglycerid 100 08/20/16 08/20/16 08/21/16 22:00 23:00 07:15 WBC RBC Hgb Hct MCV MCHC RDW Plt Count MPV INR PTT (Actin FS) Puncture Site Right brachial Right radial ABG pH 7.35 7.32 L ABG pCO2 at Pt Temp 36.6 40.1 ABG pO2 at Pt Temp 52.2 L 282.0 H* D ABG HCO3 19.8 L 19.9 L ABG O2 Sat (Measured) 82.3 L 99.7 H* ABG O2 Content 15.9 18.9 ABG Base Excess -4.6 L -5.4 L Kip Test Positive Positive O2 Delivery Device Bipap Bipap Oxygen Flow Rate 60% 100 Vent Mode S/t Ipap 12 Vent Rate 14 14 PEEP 0.0 Pressure Support Vent 12/5 Epap 6 Sodium Potassium Chloride Carbon Dioxide Anion Gap BUN Creatinine Random Glucose Lactic Acid 1.799 Calcium Phosphorus Magnesium Urine Color Urine Appearance Urine pH Ur Specific [place] Urine Protein Urine Glucose (UA) Urine Ketones Urine Blood Urine Nitrite Urine Bilirubin Urine Urobilinogen Ur Leukocyte Esterase Urine WBC Urine Bacteria Hyaline Casts Urine Mucus Ur Random Sodium Ur Random Potassium Ur Random Chloride Urine Creatinine Urine Sodium Peritoneal WBC Peritoneal RBC Periton Neutrophils Periton Lymphocytes Peritoneal Monocytes Periton Macrophages Peritoneal Tot Protein Peritoneal Albumin Peritoneal LDH Peritoneal Glucose Peritoneal Amylase Peritoneal Triglycerid Active Medications Generic Name Dose Route Start Last Admin Trade Name Freq PRN Reason Stop Dose Admin Aclidinium [place] 1 puff 08/20/16 22:00 08/20/16 22:02 Tudorza - IH 1 puff BID DEMETRIUS Administration Albuterol Sulfate 1 amp 08/20/16 14:56 08/20/16 16:00 Ventolin 0.083% Nebulizer Soln - NEB 1 amp Q4H PRN Administration SHORT OF BREATH/WHEEZING Azithromycin 250 mls @ 250 mls/hr 08/20/16 21:15 08/20/16 22:00 Zithromax 500mg Ivpb (Pre-Docked) IVPB 250 mls/hr DAILY DEMETRIUS Administration Ceftriaxone Sodium 50 mls @ 100 mls/hr 08/20/16 21:15 08/20/16 22:00 Rocephin 1gm Ivpb (Pre-Docked) IVPB 100 mls/hr DAILY DEMETRIUS Administration Dextrose/Sodium Chloride 1,000 mls @ 75 mls/hr 08/21/16 05:30 08/21/16 06:28 D5-1/2ns - IV 75 mls/hr ASDIR DEMETRIUS Administration Methylprednisolone Sodium Succinate 40 mg 08/20/16 22:00 08/21/16 06:28 Solu-Medrol - IVPB 40 mg TID DEMETRIUS Administration Morphine Sulfate 1 mg 08/20/16 20:53 08/21/16 06:31 Morphine Injection - IVPUSH 1 mg Q4H PRN Administration PAIN Nicotine 21 mg 08/21/16 10:00 Nicoderm Patch - TD DAILY DEMETRIUS Fluticasone/Salmeterol 1 puff 08/20/16 22:00 08/20/16 22:02 Advair 100mcg/50mcg - IH 1 puff BID DEMETRIUS Administration ASSESSMENT/PLAN 70 year-old man with a PMH of liver cirrhosis with ascites, ETOH abuse, COPD, and atonic bladder who was admitted for urinary retention. Found to have end stage cirrhotic liver disease with ascites, acute renal failure, and hypoxic respiratory failure. Pneumonia Hypoxic respiratory failure --afebrile, WBC wnl --oxygen requirements improved, off BIPAP --CTAP shows consolidation LL base; CXR today left infiltrates; CT chest pending --continue azithro (day #2) and ceftriaxone (day #2) COPD --imaging shows hyperaerated lungs --continue IV steroids, Advair, Tudorza Atonic bladder Urinary retention s/p urethral dilation and underwood placement --US bladder today multiple bladder calculi Acute kidney injury --Cr 3.3-->3.5; anuric --discussed with renal, avoid large volume replacement Liver cirrhosis Ascites Transaminitis --imaging shows cirrhotic liver and massive ascites; paracentesis 08/20 by IR, drained 7L --giving albumin --elevated AST and alk phos; ggt elevated Hyperproteinemia --protein gap 4.7 --SPEP and UPEP ordered F/E/N Fluids: D51/2NS @ 40mL/hr Electrolytes: replete as indicated Nutrition: regular diet ordered but patient not eating or drinking DVT prophylaxis: subq heparin; SCDs Dispo: continues to require ICU level care. Patient executed DNR/DNI today witnessed by his brother Kip Redmond who is also HCP. Patient does want pressor resuscitation if indicated and does want antibiotics. Visit type - Emergency Visit Emergency Visit: Yes ED Registration Date: 08/20/16 Care time: The patient presented to the Emergency Department on the above date and was hospitalized for further evaluation of their emergent condition. - New Patient This patient is new to me today: No - Critical Care Critical Care patient: Yes Total Critical Care Time (in minutes): 85 Critical Care Statement: The care of this patient involved high complexity decision making to prevent further life threatening deterioration of the patient 's condition and/or to evalute & treat vital organ system(s) failure or risk of failure.
[2016-08-21] MEDS: AZITHROMYCIN IVPB 250 ML IVPB SCH (09:00)
[2016-08-21] MEDS: CEFTRIAXONE 50 ML IVPB SCH (09:00)
[2016-08-21] MEDS: NICOTINE 21 MG/24 HOURS TOPICAL PATCH TD SCH (09:00)
[2016-08-21] MEDS: ACLIDINIUM BROMIDE 400 MCG/INH AERO.POWD IH SCH ×2 (09:00→21:56)
[2016-08-21] MEDS: FLUTICASONE/SALMETEROL 100 MCG/50 MCG DISKUS IH SCH ×2 (09:01→21:57)
--- NOTE | 2016-08-21 12:47 | CONSULT ---
Consultation: REQUESTING PROVIDER: CONSULT REQUEST: We have been asked to medically evaluate this patient for ( specify). HISTORY OF PRESENT ILLNESS: The pt is very lethargic, on BiPap. History was taken from medical records. This is a 70 year old M with PMH of atonic bladder for years, past EtOH abuse, alcoholic Liver disease, ascites, basal cell carcinoma and COPD, who presented with weakness and unable to insert straight catheter for 3 days. He has been trying to insert it repeatedly and caused some bleeding. He has not been hydrating during this period. He uses cath 2x/day and has has uti 2x before. He sees a urologist Dr Becerril in [place] who checked his prostate a few month ago w/o acute findings. He does not know why he acquired atonic bladder and denies back injury or cva. He has been progressively weaker with increased abdominal distention for the past few days. He reports 20 lb weight loss despite decent appetite and constant non bloody non melenous diarrhea for the past 3 months. He had a colonoscopy a few yrs ago at which time polyps were removed. He has had several liters of ascites drained a few months ago. At baseline he ambulates with a walker but unable to do so recently due to weakness. He is a current heady smoker and has baseline sob with cough productive of yellow sputum, not on O2, which remained at baseline. He denies fever, chills. Bladder scan in ED 900cc and they were unable to insert underowod. In ed he became nauseous and had several episodes of NBNB vomiting. He then desats RA 78% and is placed on BIPAP. REVIEW OF SYSTEMS: N/A, pt is lethargic, on BiPap PHYSICAL EXAMINATION Vital Signs - 24 hr 08/20/16 08/20/16 08/20/16 14:29 14:45 15:00 Temperature Pulse Rate 95 H 95 H 95 H Respiratory 20 20 20 Rate Blood Pressure 90/52 83/59 95/58 O2 Sat by Pulse 91 L 90 L Oximetry (%) 08/20/16 08/20/16 08/20/16 15:15 15:30 15:45 Temperature Pulse Rate 92 H 92 H 95 H Respiratory 22 24 26 H Rate Blood Pressure 89/59 83/59 76/52 O2 Sat by Pulse 90 L 92 L 95 Oximetry (%) 08/20/16 08/20/1617 16:00 16:15 16:30 Temperature 97.5 F L Pulse Rate 96 H 95 H 97 H Respiratory 20 30 H 31 H Rate Blood Pressure 80/51 93/57 109/72 O2 Sat by Pulse 98 98 100 Oximetry (%) 08/20/16 08/20/16 08/20/16 16:45 17:00 17:15 Temperature Pulse Rate 97 H 97 H 96 H Respiratory 18 18 18 Rate Blood Pressure 93/53 93/53 90/64 O2 Sat by Pulse 100 100 100 Oximetry (%) 08/20/16 08/20/16 08/20/16 17:30 17:45 18:00 Temperature 97.5 F L Pulse Rate 97 H 97 H 93 H Respiratory 18 21 18 Rate Blood Pressure 90/64 90/62 96/62 O2 Sat by Pulse 100 100 100 Oximetry (%) 08/20/16 08/21/16 08/21/16 19:00 00:04 00:30 Temperature 97.9 F 98.3 F Pulse Rate 101 H 98 H Respiratory 18 22 Rate Blood Pressure 89/57 91/52 O2 Sat by Pulse 89 L 99 Oximetry (%) 08/21/16 08/21/16 08/21/16 02:30 03:12 06:00 Temperature 98.0 F Pulse Rate 87 90 Respiratory 20 20 Rate Blood Pressure 109/61 96/60 O2 Sat by Pulse 100 Oximetry (%) 08/21/16 08/21/16 08/21/16 08:00 08:13 11:00 Temperature 98.1 F Pulse Rate 74 85 Respiratory 20 20 22 Rate Blood Pressure 92/52 101/66 O2 Sat by Pulse 96 100 Oximetry (%) GENERAL: Awake, alert, on BiPap, cachectic. HEAD: Normal with no signs of trauma. EYES: Pupils equal, round and reactive to light, extraocular movements intact, sclera anicteric, conjunctiva clear. EARS, NOSE, THROAT: Ears normal, nares patent, left ear erosion, erythema. Dry mucous membranes. NECK: Normal range of motion, supple without lymphadenopathy, JVD, or masses. LUNGS: Breath sounds equal, diminished bilaterally. No wheezes, and no crackles. HEART: Regular rate and rhythm, normal S1 and S2 without murmur, rub or gallop. ABDOMEN: Soft, nontender, not distended, normoactive bowel sounds, no guarding, no rebound, no masses. MUSCULOSKELETAL: Normal range of motion at all joints. No bony deformities or tenderness. No CVA tenderness. UPPER EXTREMITIES: 2+ pulses, warm, well-perfused. No cyanosis. No clubbing. Cap refill <2 seconds. No peripheral edema. LOWER EXTREMITIES: 2+ pulses, warm, well-perfused. No calf tenderness. No peripheral edema. NEUROLOGICAL: Awake, no facial asymmetry. PSYCHIATRIC: Cooperative. Good eye contact. SKIN: Warm, dry, normal turgor, no rashes, mid chest ulceration and erythema. Laboratory Results - last 24 hr 08/20/16 08/20/16 08/20/16 12:30 16:30 16:30 Puncture Site ABG pH ABG pCO2 at Pt Temp ABG pO2 at Pt Temp ABG HCO3 ABG O2 Sat (Measured) ABG O2 Content ABG Base Excess Kip Test O2 Delivery Device Oxygen Flow Rate Vent Mode Vent Rate PEEP Pressure Support Vent Sodium Potassium Chloride Carbon Dioxide Anion Gap BUN Creatinine Random Glucose Lactic Acid Calcium GGT Urine Color Dkyellow Urine Appearance Slcloudy Urine pH 5.0 Ur Specific [place] 1.010 Urine Protein Negative Urine Glucose (UA) Negative Urine Ketones Negative Urine Blood 2+ H Urine Nitrite Negative Urine Bilirubin Negative Urine Urobilinogen Negative Ur Leukocyte Esterase 1+ H Urine WBC <1 Urine Bacteria Many Hyaline Casts 12 Urine Mucus Rare Ur Random Sodium 11 Ur Random Potassium 35.6 Ur Random Chloride < 10 Urine Creatinine 71.9 Urine Sodium Cancelled Peritoneal WBC 205 Peritoneal RBC 397 Periton Neutrophils 31 Periton Lymphocytes 24 Peritoneal Monocytes 12 Periton Macrophages 33 Peritoneal Tot Protein 2 Peritoneal Albumin 1 Peritoneal LDH 38 Peritoneal Glucose 95 Peritoneal Amylase 13 Peritoneal Triglycerid 100 08/20/16 08/20/16 08/21/16 22:00 23:00 06:00 Puncture Site Right brachial ABG pH 7.35 ABG pCO2 at Pt Temp 36.6 ABG pO2 at Pt Temp 52.2 L ABG HCO3 19.8 L ABG O2 Sat (Measured) 82.3 L ABG O2 Content 15.9 ABG Base Excess -4.6 L Kip Test Positive O2 Delivery Device Bipap Oxygen Flow Rate 60% Vent Mode S/t Vent Rate 14 PEEP 0.0 Pressure Support Vent 12/5 Sodium Cancelled Potassium Cancelled Chloride Cancelled Carbon Dioxide Cancelled Anion Gap Cancelled BUN Cancelled Creatinine Cancelled Random Glucose Cancelled Lactic Acid 1.799 Calcium Cancelled GGT Urine Color Urine Appearance Urine pH Ur Specific [place] Urine Protein Urine Glucose (UA) Urine Ketones Urine Blood Urine Nitrite Urine Bilirubin Urine Urobilinogen Ur Leukocyte Esterase Urine WBC Urine Bacteria Hyaline Casts Urine Mucus Ur Random Sodium Ur Random Potassium Ur Random Chloride Urine Creatinine Urine Sodium Peritoneal WBC Peritoneal RBC Periton Neutrophils Periton Lymphocytes Peritoneal Monocytes Periton Macrophages Peritoneal Tot Protein Peritoneal Albumin Peritoneal LDH Peritoneal Glucose Peritoneal Amylase Peritoneal Triglycerid 08/21/16 08/21/16 08/21/16 06:00 07:15 08:20 Puncture Site Right radial ABG pH 7.32 L ABG pCO2 at Pt Temp 40.1 ABG pO2 at Pt Temp 282.0 H* D ABG HCO3 19.9 L ABG O2 Sat (Measured) 99.7 H* ABG O2 Content 18.9 ABG Base Excess -5.4 L Kip Test Positive O2 Delivery Device Bipap Oxygen Flow Rate 100 Vent Mode Ipap 12 Vent Rate 14 PEEP Pressure Support Vent Epap 6 Sodium Potassium Chloride Carbon Dioxide Anion Gap BUN Creatinine Random Glucose Lactic Acid 2.674 H* Calcium GGT 223 H Urine Color Urine Appearance Urine pH Ur Specific [place] Urine Protein Urine Glucose (UA) Urine Ketones Urine Blood Urine Nitrite Urine Bilirubin Urine Urobilinogen Ur Leukocyte Esterase Urine WBC Urine Bacteria Hyaline Casts Urine Mucus Ur Random Sodium Ur Random Potassium Ur Random Chloride Urine Creatinine Urine Sodium Peritoneal WBC Peritoneal RBC Periton Neutrophils Periton Lymphocytes Peritoneal Monocytes Periton Macrophages Peritoneal Tot Protein Peritoneal Albumin Peritoneal LDH Peritoneal Glucose Peritoneal Amylase Peritoneal Triglycerid Active Medications Generic Name Dose Route Start Last Admin Trade Name Freq PRN Reason Stop Dose Admin Aclidinium [place] 1 puff 08/20/16 22:00 08/21/16 09:00 Shirlene - IH Not Given BID DEMETRIUS Albuterol Sulfate 1 amp 08/20/16 14:56 08/20/16 16:00 Ventolin 0.083% Nebulizer Soln - NEB 1 amp Q4H PRN Administration SHORT OF BREATH/WHEEZING Azithromycin 250 mls @ 250 mls/hr 08/20/16 21:15 08/21/16 09:00 Zithromax 500mg Ivpb (Pre-Docked) IVPB 250 mls/hr DAILY DEMETRIUS Administration Ceftriaxone Sodium 50 mls @ 100 mls/hr 08/20/16 21:15 08/21/16 09:00 Rocephin 1gm Ivpb (Pre-Docked) IVPB 100 mls/hr DAILY DEMETRIUS Administration Dextrose/Sodium Chloride 1,000 mls @ 75 mls/hr 08/21/16 05:30 08/21/16 06:28 D5-1/2ns - IV 75 mls/hr ASDIR DEMETRIUS Administration Methylprednisolone Sodium Succinate 40 mg 08/22/16 10:00 Solu-Medrol - IVPB DAILY DEMETRIUS Morphine Sulfate 1 mg 08/20/16 20:53 08/21/16 06:31 Morphine Injection - IVPUSH 1 mg Q4H PRN Administration PAIN Nicotine 21 mg 08/21/16 10:00 08/21/16 09:00 Nicoderm Patch - TD 21 mg DAILY DEMETRIUS Administration Fluticasone/Salmeterol 1 puff 08/20/16 22:00 08/21/16 09:01 Advair 100mcg/50mcg - IH Not Given BID DEMETRIUS US abdomen 08/21/16: 1. Ascites. 2. Multiple bladder calculi. Please see above discussion. 2. Multiple bladder calculi. Please see above discussion. CT abdomen/pelvis: . Left lower lobe consolidation. 2. Massive ascites. 3. Right nephrolithiasis. 4. Bladder distention with 12 mm bladder calculus. Please see above discussion. US abdomen: 1. Ascites. 2. Small irregular liver with mild splenomegaly indicative of cirrhosis. 3. Cholelithiasis. 4. Right nephrolithiasis with no evidence of hydronephrosis or obstructive uropathy. 5. Distended urinary bladder. Please see above discussion. CXR: No evidence of CHF, pleural effusion, or pneumothorax. No evidence of atelectasis, pneumonia. Questionable 1 cm cavitary lesion in the left midlung zone projecting over the medial aspect of the right scapula. ASSESSMENT/PLAN: 70 year-old man with a PMH of atonic bladder, liver cirrhosis with ascites, ETOH abuse, COPD who was admitted for urinary retention x days. Hyypoxic respiratory failure -PO2 129, FiO2 60% -f/u ABG -CTAP shows consolidation LL base; will obtain CXR -continue AZT and Rocephin -f/u LA 2.6, ordered next one -added albumin 25% BID -will obtain blood cultures Liver cirrhosis/Ascites -paracentesis drained 7L -elevated AST and alk phos -ggt pending Atonic bladder Urinary retention -12mm bladder calculus seen on CT imaging -underwent cysto, urethral dilation, and 16f underwood catheter placement -cont IVF COPD -continue IV steroids, Advair, Tudorza Acute kidney injury Cr 3.3, baseline unknown -avoid nephrotoxic substances Hyperproteinemia -protein gap 4.7 -SPEP and UPEP ordered F/E/N Fluids: D51/2NS @ 125mL/hr Electrolytes: f/u Nutrition: regular diet DVT prophylaxis: -SCDs Dispo: transferred to ICU. Full Code. We will continue to follow the patient. Thank you for this consultative opportunity. Problem List - Problems (1) Acute kidney injury Code(s): N17.9 - ACUTE KIDNEY FAILURE, UNSPECIFIED (2) CKD (chronic kidney disease) Code(s): N18.9 - CHRONIC KIDNEY DISEASE, UNSPECIFIED (3) Liver cirrhosis Code(s): K74.60 - UNSPECIFIED CIRRHOSIS OF LIVER (4) Urinary retention Code(s): R33.9 - RETENTION OF URINE, UNSPECIFIED (5) Weakness Code(s): R53.1 - WEAKNESS Visit type - Emergency Visit Emergency Visit: Yes ED Registration Date: 08/20/16 Care time: The patient presented to the Emergency Department on the above date and was hospitalized for further evaluation of their emergent condition. - New Patient This patient is new to me today: Yes Date on this admission: 08/21/16 - Critical Care Critical Care patient: Yes Total Critical Care Time (in minutes): 50 Critical Care Statement: The care of this patient involved high complexity decision making to prevent further life threatening deterioration of the patient 's condition and/or to evalute & treat vital organ system(s) failure or risk of failure.
--- NOTE | 2016-08-21 13:11 | PATH ---
Cytology Non-Gynecological Report Patient Name: FLOR SALGUERO [facility]. Rec. 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 ABDOMINAL FLUID, PARACENTESIS: SATISFACTORY FOR EVALUATION. NEGATIVE FOR MALIGNANT CELLS. REACTIVE MESOTHELIAL CELLS, HISTIOCYTES AND MIXED INFLAMMATORY CELLS. Electronically Signed Dhiraj Alonso M.D. Gross Description A. Received is a 50 cc of yellow fluid in 50% alcohol. One cytofunnel slide and one cell block are made. B. Received is 6000 cc of yellow fluid fresh. One cytofunnel slide and one cell block are made.
[2016-08-21 13:12] LABS: ARTERIAL BLD GAS O2 SATURATION 98.8 % (90-98.9); ARTERIAL BLOOD GAS BASE EXCESS -6.4 meq/l (-2-2); ARTERIAL BLOOD GAS HCO3 18.5 meq/L (22-26); ARTERIAL BLOOD GAS pH 7.32 (7.35-7.45)
[2016-08-21 13:13] LABS: ART PUNCT SITE RIGHT BRACHIAL; LPM/O2% 60%; MECH. VENT. Y; PT. ON O2? YES; TYPE OF O2 BIPAP
[2016-08-21 13:14] LABS: VENT RATE 14
[2016-08-21 13:32] LABS: URINE RBC 14 /hpf (0-3); URINE WBC <1 /hpf (3-5)
[2016-08-21 13:33] LABS: URINE BACTERIA MANY /hpf (NONE SEEN); URINE HYALINE CAST 12 /lpf; URINE MUCUS RARE
[2016-08-21 14:55] LABS: ALBUMIN 1.8 g/dl (3.4-5.0); BILIRUBIN,DIRECT 0.6 mg/dL (0.0-0.2); BILIRUBIN,TOTAL 0.8 mg/dL (0.2-1.0); CALCIUM 8.2 mg/dL (8.5-10.1); COCKROFT - GAULT 12.7; CREATININE 3.5 mg/dL (0.7-1.3); TOT PROT 6.3 g/dl (6.4-8.2)
[2016-08-21 15:08] LABS: MAGNESIUM 1.9 mg/dL (1.8-2.4)
--- NOTE | 2016-08-21 15:19 | PN ---
Progress Note, Physician History of Present Illness: Pt seen and examined at bedside. He is awake but appears fatigued. He i snow in the ICU. - Current Medication List Current Medications: Active Medications Aclidinium [place] (Tudorza -) 1 puff IH BID [facility] Last Admin: 08/21/16 09:00 Dose: Not Given Albuterol Sulfate (Ventolin 0.083% Nebulizer Soln -) 1 amp NEB Q4H PRN PRN Reason: SHORT OF BREATH/WHEEZING Last Admin: 08/20/16 16:00 Dose: 1 amp Azithromycin (Zithromax 500mg Ivpb (Pre-Docked)) 250 mls @ 250 mls/hr IVPB DAILY [facility] Last Admin: 08/21/16 09:00 Dose: 250 mls/hr Ceftriaxone Sodium (Rocephin 1gm Ivpb (Pre-Docked)) 50 mls @ 100 mls/hr IVPB DAILY [facility] Last Admin: 08/21/16 09:00 Dose: 100 mls/hr Dextrose/Sodium Chloride (D5-1/2ns -) 1,000 mls @ 75 mls/hr IV ASDIR [facility] Last Admin: 08/21/16 06:28 Dose: 75 mls/hr Methylprednisolone Sodium Succinate (Solu-Medrol -) 40 mg IVPB DAILY [facility] Morphine Sulfate (Morphine Injection -) 1 mg IVPUSH Q4H PRN PRN Reason: PAIN Last Admin: 08/21/16 06:31 Dose: 1 mg Nicotine (Nicoderm Patch -) 21 mg TD DAILY [facility] Last Admin: 08/21/16 09:00 Dose: 21 mg Fluticasone/Salmeterol (Advair 100mcg/50mcg -) 1 puff IH BID [facility] Last Admin: 08/21/16 09:01 Dose: Not Given - Objective Vital Signs: Vital Signs Temperature 98.1 F 08/21/16 08:13 Pulse Rate 85 08/21/16 13:15 Respiratory Rate 22 08/21/16 11:00 Blood Pressure 101/66 08/21/16 11:00 O2 Sat by Pulse Oximetry (%) 98 08/21/16 13:15 Constitutional: Yes: Calm Eyes: Yes: Conjunctiva Clear HENT: Yes: Atraumatic Neck: Yes: Supple Cardiovascular: Yes: S1, S2 Respiratory: Yes: On BiPap, Rhonchi Gastrointestinal: Yes: Normal Bowel Sounds, Soft, Ascites Genitourinary: Yes: [place] Present Musculoskeletal: Yes: Muscle Weakness Edema: No Neurological: Yes: Oriented Psychiatric: Yes: Oriented Labs: CBC, BMP 08/20/16 08:00 08/21/16 13:25 INR, PTT INR 1.11 (0.82-1.09) 08/20/16 08:00 Problem List - Problems (1) Urinary retention Code(s): R33.9 - RETENTION OF URINE, UNSPECIFIED (2) Liver cirrhosis Code(s): K74.60 - UNSPECIFIED CIRRHOSIS OF LIVER (3) CKD (chronic kidney disease) Code(s): N18.9 - CHRONIC KIDNEY DISEASE, UNSPECIFIED Assessment/Plan Current Medications Generic Name Dose Route Start Last Admin Trade Name Freq PRN Reason Stop Dose Admin Aclidinium [place] 1 puff 08/20/16 22:00 08/21/16 09:00 Tudorza - IH Not Given BID DEMETRIUS Albuterol Sulfate 1 amp 08/20/16 14:56 08/20/16 16:00 Ventolin 0.083% Nebulizer Soln - NEB 1 amp Q4H PRN Administration SHORT OF BREATH/WHEEZING Azithromycin 250 mls @ 250 mls/hr 08/20/16 21:15 08/21/16 09:00 Zithromax 500mg Ivpb (Pre-Docked) IVPB 250 mls/hr DAILY DEMETRIUS Administration Ceftriaxone Sodium 50 mls @ 100 mls/hr 08/20/16 21:15 08/21/16 09:00 Rocephin 1gm Ivpb (Pre-Docked) IVPB 100 mls/hr DAILY DEMETRIUS Administration Dextrose/Sodium Chloride 1,000 mls @ 75 mls/hr 08/21/16 05:30 08/21/16 06:28 D5-1/2ns - IV 75 mls/hr ASDIR DEMETRIUS Administration Methylprednisolone Sodium Succinate 40 mg 08/22/16 10:00 Solu-Medrol - IVPB DAILY DEMETRIUS Morphine Sulfate 1 mg 08/20/16 20:53 08/21/16 06:31 Morphine Injection - IVPUSH 1 mg Q4H PRN Administration PAIN Nicotine 21 mg 08/21/16 10:00 08/21/16 09:00 Nicoderm Patch - TD 21 mg DAILY DEMETRIUS Administration Fluticasone/Salmeterol 1 puff 08/20/16 22:00 08/21/16 09:01 Advair 100mcg/50mcg - IH Not Given BID DEMETRIUS Laboratory Tests 08/20/16 08/20/16 16:30 16:30 Urine Color Dkyellow Ur Specific [place] 1.010 Urine Protein Negative Urine Glucose (UA) Negative Urine Ketones Negative Urine Blood 2+ H Urine Nitrite Negative Urine Bilirubin Negative Urine Urobilinogen Negative Ur Leukocyte Esterase 1+ H Urine RBC 14 Urine WBC <1 Ur Random Sodium 11 Impression 1. CKD with unclear baseline creatinine 2. liver cirrhosis 3. COPD 4. hx of etoh abuse 5. ascites 6. dysuria Plan - avoid high volume paracentesis - cont bipap - get cxr - recommend stopping fluids - trial of albumin trial - monitor urine output - discussed with ICU team Dr Ren
--- NOTE | 2016-08-21 15:43 | PN ---
Teaching Attending Note Name of Resident: Sandra Armstrong ATTENDING PHYSICIAN STATEMENT I saw and evaluated the patient. I reviewed the resident's note and discussed the case with the resident. I agree with the resident's findings and plan as documented. SUBJECTIVE: In brief. 70 m, atonic bladder for years, past EtOH abuse, alcoholic Liver disease, ascites, basal cell carcinoma, bladder self catherization BID, and COPD. Admitted via the ER to the medical floor. Yesterday had large volume paracentesis (7 liters). Apparently had a 20 lb weight loss and diarrhea for the past 3 months. Noted to be hypotensive and was given aggressive volume resuscitation. Transferred to the ICU due to hypoxic / acute respiratory failure requiring NIPPV. He is now in the ICU. He is awake on NIPPV. Intake & Output 08/18/16 08/19/16 08/20/16 08/21/16 23:59 23:59 23:59 23:59 Intake Total 350 1500 Output Total 200 100 Balance 150 1400 Weight 110 lb 103 lb Last Vital Signs Temp Pulse Resp BP Pulse Ox 98.1 F 85 22 101/66 98 08/21/16 08:13 08/21/16 13:15 08/21/16 11:00 08/21/16 11:00 08/21/16 13:15 Active Medications Aclidinium [place] (Tudor[place] -) 1 puff IH BID [facility] Last Admin: 08/21/16 09:00 Dose: Not Given Albumin Human (Albumin Human 25%) 12.5 gm IVPB BID [facility] Stop: 08/23/16 10:01 Albuterol Sulfate (Ventolin 0.083% Nebulizer Soln -) 1 amp NEB Q4H PRN PRN Reason: SHORT OF BREATH/WHEEZING Last Admin: 08/20/16 16:00 Dose: 1 amp Azithromycin (Zithromax 500mg Ivpb (Pre-Docked)) 250 mls @ 250 mls/hr IVPB DAILY [facility] Last Admin: 08/21/16 09:00 Dose: 250 mls/hr Ceftriaxone Sodium (Rocephin 1gm Ivpb (Pre-Docked)) 50 mls @ 100 mls/hr IVPB DAILY [facility] Last Admin: 08/21/16 09:00 Dose: 100 mls/hr Methylprednisolone Sodium Succinate (Solu-Medrol -) 40 mg IVPB DAILY [facility] Morphine Sulfate (Morphine Injection -) 1 mg IVPUSH Q4H PRN PRN Reason: PAIN Last Admin: 08/21/16 06:31 Dose: 1 mg Nicotine (Nicoderm Patch -) 21 mg TD DAILY [facility] Last Admin: 08/21/16 09:00 Dose: 21 mg Fluticasone/Salmeterol (Advair 100mcg/50mcg -) 1 puff IH BID [facility] Last Admin: 08/21/16 09:01 Dose: Not Given GENERAL: Awake on NIPPV, cachectic. HEAD: Normal with no signs of trauma. EYES: Sclera anicteric, conjunctiva clear. EARS, NOSE, THROAT: Ears normal, nares patent, left ear erosion, erythema. Dry mucous membranes. NECK: Normal range of motion, supple without lymphadenopathy, JVD, or masses. LUNGS: Breath sounds equal, diminished bilaterally. No wheezes, and no crackles. HEART: Regular rate and rhythm, normal S1 and S2 without murmur, rub or gallop. ABDOMEN: Soft, nontender, less distended, (+) BS MUSCULOSKELETAL: Normal range of motion at all joints. No bony deformities or tenderness. No CVA tenderness. UPPER EXTREMITIES: warm LOWER EXTREMITIES: warm NEUROLOGICAL: Awake, non-focal Laboratory Results - last 24 hr 08/20/16 08/20/16 08/20/16 12:30 16:30 16:30 Puncture Site ABG pH ABG pCO2 at Pt Temp ABG pO2 at Pt Temp ABG HCO3 ABG O2 Sat (Measured) ABG O2 Content ABG Base Excess Kip Test O2 Delivery Device Oxygen Flow Rate Vent Mode Vent Rate Mechanical Rate PEEP Pressure Support Vent Sodium Potassium Chloride Carbon Dioxide Anion Gap BUN Creatinine Creat Clearance w eGFR Random Glucose Lactic Acid Calcium Magnesium Total Bilirubin Direct Bilirubin GGT AST ALT Alkaline Phosphatase Total Protein Albumin Urine Color Dkyellow Urine Appearance Slcloudy Urine pH 5.0 Ur Specific [place] 1.010 Urine Protein Negative Urine Glucose (UA) Negative Urine Ketones Negative Urine Blood 2+ H Urine Nitrite Negative Urine Bilirubin Negative Urine Urobilinogen Negative Ur Leukocyte Esterase 1+ H Urine RBC 14 Urine WBC <1 Ur Epithelial Cells Cancelled Urine Crystals Cancelled Calcium Oxalate Crystal Cancelled Uric Acid Crystals Cancelled Triple Phos Crystals Cancelled Amorphous Phosphates Cancelled Amorphous Urates Cancelled Amorphous Sediment Cancelled Urine Bacteria Many Urine Casts Cancelled Hyaline Casts 12 Granular Casts Cancelled Waxy Casts Cancelled RBC Casts Cancelled WBC Casts Cancelled Urine Mucus Rare Urine Other Cancelled Urine Trichomonas Cancelled Urine Yeast Cancelled Ur Random Sodium 11 Ur Random Potassium 35.6 Ur Random Chloride < 10 Urine Creatinine 71.9 Urine Sodium Cancelled Peritoneal WBC 205 Peritoneal RBC 397 Periton Neutrophils 31 Periton Lymphocytes 24 Peritoneal Monocytes 12 Periton Macrophages 33 08/20/16 08/20/16 08/21/16 22:00 23:00 06:00 Puncture Site Right brachial ABG pH 7.35 ABG pCO2 at Pt Temp 36.6 ABG pO2 at Pt Temp 52.2 L ABG HCO3 19.8 L ABG O2 Sat (Measured) 82.3 L ABG O2 Content 15.9 ABG Base Excess -4.6 L Kip Test Positive O2 Delivery Device Bipap Oxygen Flow Rate 60% Vent Mode S/t Vent Rate 14 Mechanical Rate PEEP 0.0 Pressure Support Vent 12/5 Sodium Cancelled Potassium Cancelled Chloride Cancelled Carbon Dioxide Cancelled Anion Gap Cancelled BUN Cancelled Creatinine Cancelled Creat Clearance w eGFR Random Glucose Cancelled Lactic Acid 1.799 Calcium Cancelled Magnesium Total Bilirubin Direct Bilirubin GGT AST ALT Alkaline Phosphatase Total Protein Albumin Urine Color Urine Appearance Urine pH Ur Specific [place] Urine Protein Urine Glucose (UA) Urine Ketones Urine Blood Urine Nitrite Urine Bilirubin Urine Urobilinogen Ur Leukocyte Esterase Urine RBC Urine WBC Ur Epithelial Cells Urine Crystals Calcium Oxalate Crystal Uric Acid Crystals Triple Phos Crystals Amorphous Phosphates Amorphous Urates Amorphous Sediment Urine Bacteria Urine Casts Hyaline Casts Granular Casts Waxy Casts RBC Casts WBC Casts Urine Mucus Urine Other Urine Trichomonas Urine Yeast Ur Random Sodium Ur Random Potassium Ur Random Chloride Urine Creatinine Urine Sodium Peritoneal WBC Peritoneal RBC Periton Neutrophils Periton Lymphocytes Peritoneal Monocytes Periton Macrophages 08/21/16 08/21/16 08/21/16 06:00 07:15 08:20 Puncture Site Right radial ABG pH 7.32 L ABG pCO2 at Pt Temp 40.1 ABG pO2 at Pt Temp 282.0 H* D ABG HCO3 19.9 L ABG O2 Sat (Measured) 99.7 H* ABG O2 Content 18.9 ABG Base Excess -5.4 L Kip Test Positive O2 Delivery Device Bipap Oxygen Flow Rate 100 Vent Mode Ipap 12 Vent Rate 14 Mechanical Rate PEEP Pressure Support Vent Epap 6 Sodium Potassium Chloride Carbon Dioxide Anion Gap BUN Creatinine Creat Clearance w eGFR Random Glucose Lactic Acid 2.674 H* Calcium Magnesium Total Bilirubin Direct Bilirubin GGT 223 H AST ALT Alkaline Phosphatase Total Protein Albumin Urine Color Urine Appearance Urine pH Ur Specific [place] Urine Protein Urine Glucose (UA) Urine Ketones Urine Blood Urine Nitrite Urine Bilirubin Urine Urobilinogen Ur Leukocyte Esterase Urine RBC Urine WBC Ur Epithelial Cells Urine Crystals Calcium Oxalate Crystal Uric Acid Crystals Triple Phos Crystals Amorphous Phosphates Amorphous Urates Amorphous Sediment Urine Bacteria Urine Casts Hyaline Casts Granular Casts Waxy Casts RBC Casts WBC Casts Urine Mucus Urine Other Urine Trichomonas Urine Yeast Ur Random Sodium Ur Random Potassium Ur Random Chloride Urine Creatinine Urine Sodium Peritoneal WBC Peritoneal RBC Periton Neutrophils Periton Lymphocytes Peritoneal Monocytes Periton Macrophages 08/21/16 08/21/16 13:11 13:25 Puncture Site Right brachial ABG pH 7.32 L ABG pCO2 at Pt Temp 36.9 ABG pO2 at Pt Temp 129.0 H D ABG HCO3 18.5 L ABG O2 Sat (Measured) 98.8 ABG O2 Content 15.4 ABG Base Excess -6.4 L Kip Test Not applicable O2 Delivery Device Bipap Oxygen Flow Rate 60% Vent Mode S/t Vent Rate 14 Mechanical Rate Y PEEP Pressure Support Vent 12/6 Sodium 132 L Potassium 5.5 H Chloride 96 L Carbon Dioxide 21 Anion Gap 15 BUN 81 H Creatinine 3.5 H Creat Clearance w eGFR 17.35 Random Glucose 122 H D Lactic Acid Calcium 8.2 L Magnesium 1.9 Total Bilirubin 0.8 Direct Bilirubin 0.6 H GGT AST 44 H ALT 13 D Alkaline Phosphatase 242 H Total Protein 6.3 L Albumin 1.8 L Urine Color Urine Appearance Urine pH Ur Specific [place] Urine Protein Urine Glucose (UA) Urine Ketones Urine Blood Urine Nitrite Urine Bilirubin Urine Urobilinogen Ur Leukocyte Esterase Urine RBC Urine WBC Ur Epithelial Cells Urine Crystals Calcium Oxalate Crystal Uric Acid Crystals Triple Phos Crystals Amorphous Phosphates Amorphous Urates Amorphous Sediment Urine Bacteria Urine Casts Hyaline Casts Granular Casts Waxy Casts RBC Casts WBC Casts Urine Mucus Urine Other Urine Trichomonas Urine Yeast Ur Random Sodium Ur Random Potassium Ur Random Chloride Urine Creatinine Urine Sodium Peritoneal WBC Peritoneal RBC Periton Neutrophils Periton Lymphocytes Peritoneal Monocytes Periton Macrophages US abdomen 08/21/16: 1. Ascites. 2. Multiple bladder calculi. Please see above discussion. 2. Multiple bladder calculi. Please see above discussion. CT abdomen/pelvis: . Left lower lobe consolidation. 2. Massive ascites. 3. Right nephrolithiasis. 4. Bladder distention with 12 mm bladder calculus. Please see above discussion. US abdomen: 1. Ascites. 2. Small irregular liver with mild splenomegaly indicative of cirrhosis. 3. Cholelithiasis. 4. Right nephrolithiasis with no evidence of hydronephrosis or obstructive uropathy. 5. Distended urinary bladder. Please see above discussion. CXR: No evidence of CHF, pleural effusion, or pneumothorax. No evidence of atelectasis, pneumonia. Questionable 1 cm cavitary lesion in the left midlung zone projecting over the medial aspect of the right scapula. ASSESSMENT/PLAN: Acute Respiratory Failure requiring NIPPV Atonic bladder Liver cirrhosis with ascites ETOH abuse COPD (?) Left cavitary lesion CT scan evaluation Urology follow up to R/O obstruction Noted Renal has recommended to stop IVF and albumin infusion Problem List - Problems (1) Acute kidney injury Code(s): N17.9 - ACUTE KIDNEY FAILURE, UNSPECIFIED (2) CKD (chronic kidney disease) Code(s): N18.9 - CHRONIC KIDNEY DISEASE, UNSPECIFIED (3) Liver cirrhosis Code(s): K74.60 - UNSPECIFIED CIRRHOSIS OF LIVER (4) Urinary retention Code(s): R33.9 - RETENTION OF URINE, UNSPECIFIED (5) Weakness Code(s): R53.1 - WEAKNESS ASSESSMENT/PLAN: Acute Respiratory Failure requiring NIPPV Atonic bladder Liver cirrhosis with ascites ETOH abuse COPD (?) Left cavitary lesion Possible LLL PNA (noted on abdominal CT) CT scan evaluation Urology follow up to R/O obstruction Noted Renal has recommended to stop IVF and albumin infusion Blood C/S Noted empiric ABX -> check sputum VM O2 alternating with NIPPV ICU monitoring Recheck Lactic acid level Dr Murcia critical care time spent in reviewing chart, evaluating patient and formulating plan 35 min
[2016-08-21] MEDS ORDERED: SODIUM CHLORIDE 1,000 ML IV SCH ×2 (17:15→19:36)
--- NOTE | 2016-08-21 18:37 | CON.GI ---
Consult Consult Specialty:: Gastroenterology Reason for Consultation:: ascites/liver disease - History of Present Illness Chief Complaint: patient unable to verbalize History of Present Illness: This is a 71-year-old male with a history of atonic bladder, kidney stones, alcoholism with current activity, alcoholic cirrhosis, recurrent ascites, admitted to the hospital with septic-like picture and urine urinary retention. On admission patient was noted to have massive ascites on imaging studies. 7 L of ascitic fluid were removed yesterday. Through the record of admission patient was not repleted with albumin of or saline. Patient then went to the OR for operative procedure for urethral stricture. Patient postoperatively on the medical floor became hypotensive and developed respiratory failure and was admitted to the ICU.. Consultation request was made through the emergency room by nurse practitioner Yani Keating. No call was sent to my answering service. I was made aware of the consultation today by going online to review my other hospital patients. I saw the patient in the ICU today he is currently unable to give accurate history he is on BiPAP Pap. This history is through the medical record his brother and his significant other. I have also called his primary care doctor Dr. Marquez for further information.. Roberto has been chronically ill for a number of years. He is an active drinker with cirrhosis and recurrent ascites. Dr. Marquez states that he has extensive basal cell carcinoma on his face years and is nasal passages he has not seen Dr. Marquez on a regular basis for over a year but Dr. Marquez did see him 1-2 weeks ago. At that point Dr. Marquez suggested hospice care and the patient was interviewed by the hospice services but was denied admission. Last week he had paracentesis of 18 L of fluid repleted with albumin as an outpatient the patient did fine. He however continues to drink. His atonic bladder is been a problem for years. His cirrhosis is been a problem for over 10 years. He has never had a liver biopsy. The etiology of the cirrhosis is alcohol. Patient is continued to lose weight and he has continuous diarrhea workup has been unrevealing. Patient is HIV negative according to Dr. Marquez. the date of that last test is unknown. His gastroenterology care is through a physician, Dr. May in [place]. his number was given to nurse practitioner marguerite. I have tried to call her twice today has not yet received a return call. I will get that number from Yani tomorrow.. Currently Roberto has no abdominal pain nausea vomiting melena or bright red blood per rectum. He is still hypotensive, he is still acidotic. He has acute renal injury. The status of his of prior renal status is unknown. He is lying comfortable in bed he is extremely cachectic and is very short of breath and cannot hold a conversation let alone speaking fluent sentences. - History Source History Provided By: Family Member, Significant Other, Medical Record Limitations to Obtaining History: Clinical Condition - Past Medical History RECOOPERER: No: Alzheimer's, CVA, Dementia, Migraine, Multiple Sclerosis, Peripheral Neuropathy, Parkinson's, Seizure, Syncope, TIA, Vertigo, Other Pulmonary: Yes: COPD Hepatobiliary: Yes: Cirrhosis, Other ( Alcoholism active drinker, chronic diarrhea, recurrent uncontrolled ascites, weight loss,status post multiple paracentesis) Renal/: Yes: Neurogenic Bladder Heme/Onc: Yes: Anemia Psych: Yes: Addictions Dermatology: Yes: Basal Cell - Past Surgical History Past Surgical History: Yes: Appendectomy, Colonoscopy, Upper Endoscopy - Alcohol/Substance Use Hx Alcohol Use: Yes - Smoking History Smoking history: Current every day smoker Have you smoked in the past 12 months: Yes Home Medications - Allergies Allergies/Adverse Reactions: Allergies Allergy/AdvReac Type Severity Reaction Status Date / Time No Known Allergies Allergy Verified 08/19/16 23:10 - Home Medications Home Medications: Ambulatory Orders Colchicine [Colcrys] 0.6 mg PO DAILY 08/20/16 Rifaximin [Xifaxan] 200 mg PO DAILY 08/20/16 Salmeterol/Fluticasone [Advair 250Mcg/50Mcg -] 2 spray .ROUTE BID 08/20/16 Tiotropium [place] [Spiriva] 1 inh IH DAILY 08/20/16 Family Disease History - Family Disease History Family History: Unable to Obtain Review of Systems - Review of Systems Constitutional: reports: Lethargy, Loss of Appetite, Malaise Eyes: reports: No Symptoms Cardiovascular: reports: Chest Pain, Shortness of Breath Respiratory: reports: Cough, SOB Gastrointestinal: reports: Diarrhea, Nausea, Vomiting, Other ( abdominal distention) Genitourinary: reports: Dysuria Integumentary: reports: Change in Color, Lesions, Other ( history of basal cell carcinoma) Endocrine: reports: No Symptoms Hematology/Lymphatic: reports: No Symptoms Physical Exam-GI Vital Signs: Vital Signs Temperature 96 F L 08/21/16 16:00 Pulse Rate 87 08/21/16 16:00 Respiratory Rate 22 08/21/16 16:00 Blood Pressure 98/61 08/21/16 16:00 O2 Sat by Pulse Oximetry (%) 95 08/21/16 18:24 Constitutional: Yes: Calm, Cachectic, Other ( chronically ill-appearing) HENT: Yes: Other ( nonicteric, left ear lesion) Cardiovascular: Yes: Tachycardia Respiratory: Yes: On BiPap, Wheezes, Other ( rhonchi) ...Auscultate: Yes: Hypoactive Bowel Sounds ...Palpate: Yes: Other ( nontender no masses no demonstrable fluid wave or dullness to flank percussion) Musculoskeletal: Yes: Muscle Weakness Extremities: Yes: Other (hyle atrop musc) Labs: CBC, BMP 08/20/16 08:00 08/21/16 13:25 INR, PTT INR 1.11 (0.82-1.09) 08/20/16 08:00 Laboratory Tests 08/20/16 08/20/16 08/20/16 01:03 08:00 08:00 WBC 11.3 H 9.6 RBC 3.90 L 3.91 L Hgb 11.7 12.1 Hct 35.8 36.1 MCV 91.8 92.5 MCHC 32.8 33.5 RDW 16.7 H 16.5 H Plt Count 258 232 MPV 10.5 11.1 Neutrophils % 80.5 Lymphocytes % 14.8 Monocytes % 3.6 L Eosinophils % 0.3 Basophils % 0.8 INR ABG pH ABG pCO2 at Pt Temp ABG pO2 at Pt Temp ABG HCO3 ABG O2 Sat (Measured) ABG O2 Content ABG Base Excess Sodium 136 Potassium 4.9 Chloride 98 Carbon Dioxide 22 Anion Gap 16 BUN 71 H Creatinine 3.3 H Creat Clearance w eGFR Random Glucose Lactic Acid Calcium 9.4 Phosphorus 5.9 H Magnesium 2.2 Total Bilirubin Direct Bilirubin GGT AST ALT Alkaline Phosphatase Total Protein Albumin Peritoneal WBC Peritoneal RBC Periton Neutrophils Periton Lymphocytes Peritoneal Monocytes Periton Macrophages Peritoneal Tot Protein Peritoneal Albumin Peritoneal LDH Peritoneal Glucose Peritoneal Amylase Peritoneal Triglycerid 08/20/16 08/20/16 08/21/16 08:00 12:30 06:00 WBC RBC Hgb Hct MCV MCHC RDW Plt Count MPV Neutrophils % Lymphocytes % Monocytes % Eosinophils % Basophils % INR 1.11 ABG pH ABG pCO2 at Pt Temp ABG pO2 at Pt Temp ABG HCO3 ABG O2 Sat (Measured) ABG O2 Content ABG Base Excess Sodium Potassium Chloride Carbon Dioxide Anion Gap BUN Creatinine Creat Clearance w eGFR Random Glucose Lactic Acid 2.674 H* Calcium Phosphorus Magnesium Total Bilirubin Direct Bilirubin GGT AST ALT Alkaline Phosphatase Total Protein Albumin Peritoneal WBC 205 Peritoneal RBC 397 Periton Neutrophils 31 Periton Lymphocytes 24 Peritoneal Monocytes 12 Periton Macrophages 33 Peritoneal Tot Protein 2 Peritoneal Albumin 1 Peritoneal LDH 38 Peritoneal Glucose 95 Peritoneal Amylase 13 Peritoneal Triglycerid 100 08/21/16 08/21/16 08/21/16 08:20 13:11 13:25 WBC RBC Hgb Hct MCV MCHC RDW Plt Count MPV Neutrophils % Lymphocytes % Monocytes % Eosinophils % Basophils % INR ABG pH 7.32 L ABG pCO2 at Pt Temp 36.9 ABG pO2 at Pt Temp 129.0 H D ABG HCO3 18.5 L ABG O2 Sat (Measured) 98.8 ABG O2 Content 15.4 ABG Base Excess -6.4 L Sodium 132 L Potassium 5.5 H Chloride 96 L Carbon Dioxide 21 Anion Gap 15 BUN 81 H Creatinine 3.5 H Creat Clearance w eGFR 17.35 Random Glucose 122 H D Lactic Acid Calcium 8.2 L Phosphorus Magnesium 1.9 Total Bilirubin 0.8 Direct Bilirubin 0.6 H GGT 223 H AST 44 H ALT 13 D Alkaline Phosphatase 242 H Total Protein 6.3 L Albumin 1.8 L Peritoneal WBC Peritoneal RBC Periton Neutrophils Periton Lymphocytes Peritoneal Monocytes Periton Macrophages Peritoneal Tot Protein Peritoneal Albumin Peritoneal LDH Peritoneal Glucose Peritoneal Amylase Peritoneal Triglycerid Problem List - Problems (1) Liver cirrhosis Assessment/Plan: Patient is an active alcoholic with refractory ascites and worsening cirrhosis. Last visit to the primary care physician he was sent for a hospice evaluation. Currently supportive care is the best I can offer him for now. He was just made DNR/DNI. Hydration circulatory ventilatory support is recommended an ongoing. I will call his deployment manager when I get his phone number from the nurse practitioner. His serum ascites albumin gradient is 1.0 . This does not suggest liver cirrhosis. Does suggest peritoneal carcinomatosis tuberculosis peritonitis pancreatic ascites biliary ascites nephrotic syndrome and serositis and connective tissue disease. However these numbers remain to be incorrect due to a number of reasons. The first one is chronic diarrhea and protein loss and repeated paracenteses with the administration of albumin. I will try to get further information from his deployment manager. icu time: one hour Code(s): K74.60 - UNSPECIFIED CIRRHOSIS OF LIVER (2) Ascites due to alcoholic cirrhosis Code(s): K70.31 - ALCOHOLIC CIRRHOSIS OF LIVER WITH ASCITES (3) Metabolic acidosis Code(s): E87.2 - ACIDOSIS (4) Sepsis syndrome Code(s): LGS2710 - (5) Chronic diarrhea Code(s): K52.9 - NONINFECTIVE GASTROENTERITIS AND COLITIS, UNSPECIFIED (6) Acute kidney injury Code(s): N17.9 - ACUTE KIDNEY FAILURE, UNSPECIFIED (7) Basal cell carcinoma Code(s): C44.91 - BASAL CELL CARCINOMA OF SKIN, UNSPECIFIED (8) CKD (chronic kidney disease) Code(s): N18.9 - CHRONIC KIDNEY DISEASE, UNSPECIFIED (9) Urinary retention Code(s): R33.9 - RETENTION OF URINE, UNSPECIFIED (10) Weakness Code(s): R53.1 - WEAKNESS
[2016-08-21] MEDS ORDERED: PT OWN MED DRAWER 7, Y5N ONE (21:48)
[2016-08-21] MEDS: ALBUMIN HUMAN 25% 12.5 GM/50 ML VIAL IVPB SCH (21:56)
[2016-08-22] MEDS: morphine CARPU-JECT 2 MG/1 ML DISP.SYRIN IVPUSH PRN ×2 (03:03→21:20)
[2016-08-22] MEDS ORDERED: ALBUTEROL SO4 2.5/IPRATROPIUM 0.5 INH SOL 3 ML VIAL.NEB. NEB SCH (06:00)
[2016-08-22 06:17] LABS: BASOPHIL 0.2 % (0-2.0); MCH 30.4 pg (25.7-33.7); MCHC 32.8 g/dl (32.0-35.9); MEAN CELL VOLUME 92.5 fl (80-96); MEAN PLT VOLUME 11.3 fl (7.5-11.1); NEUTROPHILS 86.1 % (42.8-82.8); PLATELET COUNT 185 K/MM3 (134-434); RDW 16.9 % (11.9-15.9); WHITE BLOOD COUNT 11.5 K/mm3 (4.0-10.0)
[2016-08-22 06:28] LABS: INR 1.22 (0.82-1.09); PROTHROMBIN TIME (PATIENT) 13.5 SEC (9.98-11.88)
[2016-08-22 08:57] LABS: BILIRUBIN,TOTAL 0.9 mg/dL (0.2-1.0); CALCIUM 7.9 mg/dL (8.5-10.1); CREATININE 3.3 mg/dL (0.7-1.3)
[2016-08-22] MEDS: NICOTINE 21 MG/24 HOURS TOPICAL PATCH TD SCH (09:19)
[2016-08-22] MEDS: CEFTRIAXONE 50 ML IVPB SCH (09:19)
[2016-08-22] MEDS: AZITHROMYCIN IVPB 250 ML IVPB SCH (09:20)
[2016-08-22] MEDS: FLUTICASONE/SALMETEROL 100 MCG/50 MCG DISKUS IH SCH ×2 (09:21→21:23)
[2016-08-22] MEDS: ACLIDINIUM BROMIDE 400 MCG/INH AERO.POWD IH SCH (09:27)
[2016-08-22] MEDS ORDERED: methylPREDNISolone NA SUCC 40 MG/1 ML VIAL IVPB SCH (10:00)
[2016-08-22] MEDS ORDERED: morphine CARPU-JECT 2 MG/1 ML DISP.SYRIN IVPUSH PRN (10:31)
[2016-08-22] MEDS ORDERED: ALBUTEROL SO4 0.083% IH SOL 2.5 MG/3 ML VIAL.NEB. NEB PRN ×2 (10:31→19:48)
[2016-08-22] MEDS: ALBUMIN HUMAN 25% 12.5 GM/50 ML VIAL IVPB SCH ×2 (11:15→21:22)
--- NOTE | 2016-08-22 12:14 | PN ---
Physical Exam: SUBJECTIVE: Patient seen and examined at bedside in ICU. Awake, alert. Denies pain. Feels weak. OBJECTIVE: Vital Signs Period Temp Pulse Resp BP Sys/Rai Pulse Ox Last 24 Hr 95.2 F-98 F 82-102 16-22 92-117/48-62 92-98 GENERAL: The patient is A&O x 3. Weak, cachectic. HEAD: Temporal wasting EENT: very dry mucous membranes LUNGS: Diffuse rhonchi, wheezing HEART: Regular rate and rhythm, S1, S2 without murmur, rub or gallop. ABDOMEN: Soft, nontender, nondistended, no guarding, no rebound; underwood in place EXTREMITIES: 2+ pulses, warm, well-perfused, no edema. Thin bones. No muscle tone. NEUROLOGICAL: Cranial nerves II through XII grossly intact. Normal speech. SKIN: Two stage III ulcers, one on coccyx and one on buttock. Present on admission. Laboratory Results - last 24 hr 08/20/16 08/21/16 08/21/16 16:30 08:20 13:11 WBC RBC Hgb Hct MCV MCHC RDW Plt Count MPV Neutrophils % Lymphocytes % Monocytes % Eosinophils % Basophils % INR Puncture Site Right brachial ABG pH 7.32 L ABG pCO2 at Pt Temp 36.9 ABG pO2 at Pt Temp 129.0 H D ABG HCO3 18.5 L ABG O2 Sat (Measured) 98.8 ABG O2 Content 15.4 ABG Base Excess -6.4 L Kip Test Not applicable O2 Delivery Device Bipap Oxygen Flow Rate 60% Vent Mode S/t Vent Rate 14 Mechanical Rate Y Pressure Support Vent 12/6 Sodium Potassium Chloride Carbon Dioxide Anion Gap BUN Creatinine Creat Clearance w eGFR POC Glucometer Random Glucose Lactic Acid Calcium Phosphorus Magnesium Total Bilirubin Direct Bilirubin AST ALT Alkaline Phosphatase Total Protein Albumin Tumor Marker AFP 2.2 Urine RBC 14 Urine WBC <1 Ur Epithelial Cells Cancelled Urine Crystals Cancelled Calcium Oxalate Crystal Cancelled Uric Acid Crystals Cancelled Triple Phos Crystals Cancelled Amorphous Phosphates Cancelled Amorphous Urates Cancelled Amorphous Sediment Cancelled Urine Bacteria Many Urine Casts Cancelled Hyaline Casts 12 Granular Casts Cancelled Waxy Casts Cancelled RBC Casts Cancelled WBC Casts Cancelled Urine Mucus Rare Urine Other Cancelled Urine Trichomonas Cancelled Urine Yeast Cancelled 08/21/16 08/21/16 08/22/16 13:25 20:00 05:20 WBC 11.5 H RBC 3.33 L Hgb 10.1 L D Hct 30.9 L MCV 92.5 MCHC 32.8 RDW 16.9 H Plt Count 185 D MPV 11.3 H Neutrophils % 86.1 H Lymphocytes % 9.7 D Monocytes % 4.0 Eosinophils % 0.0 D Basophils % 0.2 INR Puncture Site ABG pH ABG pCO2 at Pt Temp ABG pO2 at Pt Temp ABG HCO3 ABG O2 Sat (Measured) ABG O2 Content ABG Base Excess Kip Test O2 Delivery Device Oxygen Flow Rate Vent Mode Vent Rate Mechanical Rate Pressure Support Vent Sodium 132 L Potassium 5.5 H Chloride 96 L Carbon Dioxide 21 Anion Gap 15 BUN 81 H Creatinine 3.5 H Creat Clearance w eGFR 17.35 POC Glucometer Random Glucose 122 H D Lactic Acid 2.234 H* Calcium 8.2 L Phosphorus Magnesium 1.9 Total Bilirubin 0.8 Direct Bilirubin 0.6 H AST 44 H ALT 13 D Alkaline Phosphatase 242 H Total Protein 6.3 L Albumin 1.8 L Tumor Marker AFP Urine RBC Urine WBC Ur Epithelial Cells Urine Crystals Calcium Oxalate Crystal Uric Acid Crystals Triple Phos Crystals Amorphous Phosphates Amorphous Urates Amorphous Sediment Urine Bacteria Urine Casts Hyaline Casts Granular Casts Waxy Casts RBC Casts WBC Casts Urine Mucus Urine Other Urine Trichomonas Urine Yeast 08/22/16 08/22/16 08/22/16 05:20 05:20 05:48 WBC RBC Hgb Hct MCV MCHC RDW Plt Count MPV Neutrophils % Lymphocytes % Monocytes % Eosinophils % Basophils % INR 1.22 H Puncture Site ABG pH ABG pCO2 at Pt Temp ABG pO2 at Pt Temp ABG HCO3 ABG O2 Sat (Measured) ABG O2 Content ABG Base Excess Kip Test O2 Delivery Device Oxygen Flow Rate Vent Mode Vent Rate Mechanical Rate Pressure Support Vent Sodium Cancelled Potassium Cancelled Chloride Cancelled Carbon Dioxide Cancelled Anion Gap Cancelled BUN Cancelled Creatinine Cancelled Creat Clearance w eGFR POC Glucometer [id number] Random Glucose Cancelled Lactic Acid Calcium Cancelled Phosphorus Cancelled Magnesium Cancelled Total Bilirubin Cancelled Direct Bilirubin Cancelled AST Cancelled ALT Cancelled Alkaline Phosphatase Cancelled Total Protein Cancelled Albumin Cancelled Tumor Marker AFP Urine RBC Urine WBC Ur Epithelial Cells Urine Crystals Calcium Oxalate Crystal Uric Acid Crystals Triple Phos Crystals Amorphous Phosphates Amorphous Urates Amorphous Sediment Urine Bacteria Urine Casts Hyaline Casts Granular Casts Waxy Casts RBC Casts WBC Casts Urine Mucus Urine Other Urine Trichomonas Urine Yeast 08/22/16 07:37 WBC RBC Hgb Hct MCV MCHC RDW Plt Count MPV Neutrophils % Lymphocytes % Monocytes % Eosinophils % Basophils % INR Puncture Site ABG pH ABG pCO2 at Pt Temp ABG pO2 at Pt Temp ABG HCO3 ABG O2 Sat (Measured) ABG O2 Content ABG Base Excess Kip Test O2 Delivery Device Oxygen Flow Rate Vent Mode Vent Rate Mechanical Rate Pressure Support Vent Sodium 132 L Potassium 5.1 Chloride 99 Carbon Dioxide 20 L Anion Gap 13 BUN 85 H Creatinine 3.3 H Creat Clearance w eGFR 18.57 POC Glucometer Random Glucose 92 D Lactic Acid Calcium 7.9 L Phosphorus Magnesium Total Bilirubin 0.9 Direct Bilirubin AST 37 ALT 9 L D Alkaline Phosphatase 209 H Total Protein 6.0 L Albumin 2.0 L Tumor Marker AFP Urine RBC Urine WBC Ur Epithelial Cells Urine Crystals Calcium Oxalate Crystal Uric Acid Crystals Triple Phos Crystals Amorphous Phosphates Amorphous Urates Amorphous Sediment Urine Bacteria Urine Casts Hyaline Casts Granular Casts Waxy Casts RBC Casts WBC Casts Urine Mucus Urine Other Urine Trichomonas Urine Yeast Active Medications Generic Name Dose Route Start Last Admin Trade Name Freq PRN Reason Stop Dose Admin Albumin Human 12.5 gm 08/21/16 22:00 08/22/16 11:15 Albumin Human 25% IVPB 08/23/16 10:01 12.5 gm BID [facility] Administration Albuterol Sulfate 1 amp 08/22/16 10:31 Ventolin 0.083% Nebulizer Soln - NEB Q4H PRN SHORT OF BREATH/WHEEZING Albuterol/Ipratropium 1 amp 08/22/16 06:00 08/22/16 06:40 Duoneb - NEB 1 amp QIDR [facility] Administration Sodium Chloride 1,000 mls @ 40 mls/hr 08/21/16 19:36 08/21/16 21:55 Normal Saline - IV 40 mls/hr ASDIR [facility] Administration Ceftriaxone Sodium 50 mls @ 100 mls/hr 08/23/16 10:00 Rocephin 1gm Ivpb (Pre-Docked) IVPB DAILY [facility] Azithromycin 250 mls @ 250 mls/hr 08/23/16 10:00 Zithromax 500mg Ivpb (Pre-Docked) IVPB DAILY [facility] Morphine Sulfate 1 mg 05/10/17 10:31 Morphine Injection - IVPUSH Q4H PRN PAIN Nicotine 21 mg 08/23/16 10:00 Nicoderm Patch - TD DAILY [facility] Fluticasone/Salmeterol 1 puff 08/22/16 22:00 Advair 100mcg/50mcg - IH BID [facility] ASSESSMENT/PLAN 70 year-old man with a PMH of liver cirrhosis with ascites, polystubstance abuse , current ETOH abuse, COPD, current everyday smoker, and atonic bladder who was admitted for urinary retention. Found to have end stage cirrhotic liver disease with ascites, acute renal failure, and hypoxic respiratory failure. Severe sepsis secondary to pneumonia v. UTI Pneumonia Gram negative UTI --T <96, pulse >90, lactic acidosis --bilateral consolidations --continue ceftriaxone (day #3) and azithro (day #3) COPD --imaging shows hyperaerated lungs --duonebs Atonic bladder Urinary retention s/p urethral dilation and underwood placement Renal calculi --US bladder multiple bladder calculi Acute kidney injury --Cr 3.3, baseline unknown --several factors here: severe volume depletion, obstruction (now relieved), s/p large volume paracentesis; less likely hepatorenal syndrome as urine sodium is 11 --extremely dry, leathery tongue, no peripheral edema; given low UOP, will trial fluid resuscitation x 2L, close monitoring of respiratory status Liver cirrhosis Ascites Transaminitis --albumin x 4 doses yesterday Hyperproteinemia --protein gap 4.7 --SPEP and UPEP ordered Severe malnutrition --in context of chronic illness, related to prolonged inadequate nutrient intake, evidenced by 31% weight loss, BMI 13, severe muscle mass depletion with observed hollowing & prominence of temporal bone, loss of orbital fat and prominent cheekbones and brow Stage III Pressure Ulcers --present on admission Polysubstance abuse Alcohol abuse --no signs of withdrawal --Librium PRN; ativan PRN for seizure F/E/N Fluids: NS x 2L boluses, then reassess Electrolytes: replete as indicated Nutrition: regular diet ordered but patient not eating or drinking DVT prophylaxis: subq heparin; SCDs Dispo: continues to require ICU level care. Patient executed DNR/DNI today witnessed by his brother Kip Nyla who is also HCP. Patient does want pressor resuscitation if indicated and does want antibiotics. Palliative care consult requested. DNR/DNI. Visit type - Emergency Visit Emergency Visit: Yes ED Registration Date: 08/20/16 Care time: The patient presented to the Emergency Department on the above date and was hospitalized for further evaluation of their emergent condition. - New Patient This patient is new to me today: No - Critical Care Critical Care patient: Yes Total Critical Care Time (in minutes): 90 Critical Care Statement: The care of this patient involved high complexity decision making to prevent further life threatening deterioration of the patient 's condition and/or to evalute & treat vital organ system(s) failure or risk of failure.
--- NOTE | 2016-08-22 12:24 | PN ---
Teaching Attending Note Name of Resident: Sandra Armstrong ATTENDING PHYSICIAN STATEMENT I saw and evaluated the patient. I reviewed the resident's note and discussed the case with the resident. I agree with the resident's findings and plan as documented. SUBJECTIVE: Pt seen and examined in the ICU. On 50% ventimask. States pain controlled. Hemodynamically improving. OBJECTIVE: Last Vital Signs Temp Pulse Resp BP Pulse Ox 96.8 F L 94 H 19 92/50 94 L 08/22/16 10:00 08/22/16 10:00 08/22/16 10:00 08/22/16 10:00 08/22/16 09:18 Intake & Output 08/19/16 08/20/16 08/21/16 08/22/16 23:59 23:59 23:59 23:59 Intake Total 350 1975 400 Output Total 200 200 300 Balance 150 1775 100 Weight 110 lb 94 lb 5.725 oz 89 lb 11.65 oz Gen: cachectic, mildly tachypneic at rest Heart: RRR Lung: distant breath sounds Abd: soft, nontender Ext: no edema CBC, BMP 08/22/16 05:20 08/22/16 07:37 Active Medications Albumin Human (Albumin Human 25%) 12.5 gm IVPB BID [facility] Stop: 08/23/16 10:01 Last Admin: 08/22/16 11:15 Dose: 12.5 gm Albuterol Sulfate (Ventolin 0.083% Nebulizer Soln -) 1 amp NEB Q4H PRN PRN Reason: SHORT OF BREATH/WHEEZING Albuterol/Ipratropium (Duoneb -) 1 amp NEB QIDR [facility] Last Admin: 08/22/16 06:40 Dose: 1 amp Sodium Chloride (Normal Saline -) 1,000 mls @ 40 mls/hr IV ASDIR [facility] Last Admin: 08/21/16 21:55 Dose: 40 mls/hr Ceftriaxone Sodium (Rocephin 1gm Ivpb (Pre-Docked)) 50 mls @ 100 mls/hr IVPB DAILY [facility] Azithromycin (Zithromax 500mg Ivpb (Pre-Docked)) 250 mls @ 250 mls/hr IVPB DAILY [facility] Morphine Sulfate (Morphine Injection -) 1 mg IVPUSH Q4H PRN PRN Reason: PAIN Nicotine (Nicoderm Patch -) 21 mg TD DAILY [facility] Fluticasone/Salmeterol (Advair 100mcg/50mcg -) 1 puff IH BID [facility] ASSESSMENT AND PLAN: Acute Hypoxic Respiratory Failure Liver Cirrhosis Ascites s/p Large Volume Paracentesis ?Acute on Chronic Renal Failure Atonic Bladder UTI Alcohol Abuse COPD Atelectasis - continue antibiotics - f/u cultures - taper FiO2 to keep SPo2 >90% - inhaled bronchodilators - PO as tolerated - albumin as needed - aspiration precautions - DVT prophylaxis - agree with consideration for hospice care - can monitor on floor critical care time spent in reviewing chart, evaluating patient and formulating plan 35 min
[2016-08-22] MEDS ORDERED: chlordiazePOXIDE HCL 25 MG CAPSULE PO PRN (12:39)
[2016-08-22] MEDS ORDERED: LORAZEPAM CARPU-JECT 2 MG/ML DISP.SYRIN IVPUSH PRN (12:40)
[2016-08-22] MEDS ORDERED: SODIUM CHLORIDE 2,000 ML IV STA (13:43)
--- NOTE | 2016-08-22 13:45 | PN ---
Physical Exam: SUBJECTIVE: Patient seen and examined in ICU. He is still very lethargic, on venti mask. The pt is complaining of insomnia and loss of appetite. OBJECTIVE: Vital Signs Period Temp Pulse Resp BP Sys/Rai Pulse Ox Last 24 Hr 95.2 F-98 F 82-102 16-22 91-117/48-62 92-98 GENERAL: The patient is awake, alert, and fully oriented, in no acute distress, cachectic. HEAD: Normal with no signs of trauma. EYES: extraocular movements intact, sclera anicteric, conjunctiva clear. ENT: Ears normal, nares patent, oropharynx clear without exudates, moist mucous membranes. NECK: Trachea midline, full range of motion, supple. LUNGS: Breath sounds equal, clear to auscultation bilaterally, no wheezes, no crackles, no accessory muscle use. HEART: Regular rate and rhythm, S1, S2 without murmur, rub or gallop. ABDOMEN: Soft, nontender, nondistended, normoactive bowel sounds, no guarding, no rebound, no hepatosplenomegaly, no masses. EXTREMITIES: 2+ pulses, warm, no edema. NEUROLOGICAL: Normal speech, no facial asymmetry, gait not observed. PSYCH: Normal mood, normal affect. SKIN: Warm, dry, normal turgor, no rashes, ulceration in mid chest and small skin change/ulcer in right ear lobe, not draining fluid, no erythema. Laboratory Results - last 24 hr 08/21/16 08/21/16 08/21/16 08:20 13:25 20:00 WBC RBC Hgb Hct MCV MCHC RDW Plt Count MPV Neutrophils % Lymphocytes % Monocytes % Eosinophils % Basophils % INR Sodium 132 L Potassium 5.5 H Chloride 96 L Carbon Dioxide 21 Anion Gap 15 BUN 81 H Creatinine 3.5 H Creat Clearance w eGFR 17.35 POC Glucometer Random Glucose 122 H D Lactic Acid 2.234 H* Calcium 8.2 L Phosphorus Magnesium 1.9 Total Bilirubin 0.8 Direct Bilirubin 0.6 H AST 44 H ALT 13 D Alkaline Phosphatase 242 H Total Protein 6.3 L Albumin 1.8 L Tumor Marker AFP 2.2 08/22/16 08/22/16 08/22/16 05:20 05:20 05:20 WBC 11.5 H RBC 3.33 L Hgb 10.1 L D Hct 30.9 L MCV 92.5 MCHC 32.8 RDW 16.9 H Plt Count 185 D MPV 11.3 H Neutrophils % 86.1 H Lymphocytes % 9.7 D Monocytes % 4.0 Eosinophils % 0.0 D Basophils % 0.2 INR 1.22 H Sodium Cancelled Potassium Cancelled Chloride Cancelled Carbon Dioxide Cancelled Anion Gap Cancelled BUN Cancelled Creatinine Cancelled Creat Clearance w eGFR POC Glucometer Random Glucose Cancelled Lactic Acid Calcium Cancelled Phosphorus Cancelled Magnesium Cancelled Total Bilirubin Cancelled Direct Bilirubin Cancelled AST Cancelled ALT Cancelled Alkaline Phosphatase Cancelled Total Protein Cancelled Albumin Cancelled Tumor Marker AFP 08/22/16 08/22/16 05:48 07:37 WBC RBC Hgb Hct MCV MCHC RDW Plt Count MPV Neutrophils % Lymphocytes % Monocytes % Eosinophils % Basophils % INR Sodium 132 L Potassium 5.1 Chloride 99 Carbon Dioxide 20 L Anion Gap 13 BUN 85 H Creatinine 3.3 H Creat Clearance w eGFR 18.57 POC Glucometer [id number] Random Glucose 92 D Lactic Acid Calcium 7.9 L Phosphorus Magnesium Total Bilirubin 0.9 Direct Bilirubin AST 37 ALT 9 L D Alkaline Phosphatase 209 H Total Protein 6.0 L Albumin 2.0 L Tumor Marker AFP Active Medications Generic Name Dose Route Start Last Admin Trade Name Freq PRN Reason Stop Dose Admin Albumin Human 12.5 gm 08/21/16 22:00 08/22/16 11:15 Albumin Human 25% IVPB 08/23/16 10:01 12.5 gm BID [facility] Administration Albuterol Sulfate 1 amp 08/22/16 10:31 Ventolin 0.083% Nebulizer Soln - NEB Q4H PRN SHORT OF BREATH/WHEEZING Albuterol/Ipratropium 1 amp 08/22/16 06:00 08/22/16 06:40 Duoneb - NEB 1 amp QIDR [facility] Administration Chlordiazepoxide HCl 25 mg 08/22/16 12:39 Librium - PO 08/23/16 12:38 ONCE PRN AGITATION Diphenhydramine HCl 25 mg 08/22/16 22:00 Benadryl Injection - IVPB HS PRN INSOMNIA Sodium Chloride 1,000 mls @ 40 mls/hr 08/21/16 19:36 08/21/16 21:55 Normal Saline - IV 40 mls/hr ASDIR [facility] Administration Ceftriaxone Sodium 50 mls @ 100 mls/hr 08/23/16 10:00 Rocephin 1gm Ivpb (Pre-Docked) IVPB DAILY [facility] Azithromycin 250 mls @ 250 mls/hr 08/23/16 10:00 Zithromax 500mg Ivpb (Pre-Docked) IVPB DAILY [facility] Sodium Chloride 2,000 mls @ 1,000 mls/hr 08/22/16 13:43 Normal Saline - IV 08/22/16 15:42 ASDIR STA Lorazepam 2 mg 08/22/16 12:40 Ativan Injection - IVPUSH 08/23/16 12:39 ONCE PRN AGITATION Morphine Sulfate 1 mg 08/22/16 10:31 Morphine Injection - IVPUSH Q4H PRN PAIN Nicotine 21 mg 08/23/16 10:00 Nicoderm Patch - TD DAILY [facility] Fluticasone/Salmeterol 1 puff 08/22/16 22:00 Advair 100mcg/50mcg - IH BID [facility] US abdomen 08/21/16: 1. Ascites. 2. Multiple bladder calculi. Please see above discussion. 2. Multiple bladder calculi. Please see above discussion. CT abdomen/pelvis: . Left lower lobe consolidation. 2. Massive ascites. 3. Right nephrolithiasis. 4. Bladder distention with 12 mm bladder calculus. Please see above discussion. US abdomen: 1. Ascites. 2. Small irregular liver with mild splenomegaly indicative of cirrhosis. 3. Cholelithiasis. 4. Right nephrolithiasis with no evidence of hydronephrosis or obstructive uropathy. 5. Distended urinary bladder. Please see above discussion. CXR: No evidence of CHF, pleural effusion, or pneumothorax. No evidence of atelectasis, pneumonia. Questionable 1 cm cavitary lesion in the left midlung zone projecting over the medial aspect of the right scapula. ASSESSMENT/PLAN: 70 year-old man with a PMH of atonic bladder, liver cirrhosis with ascites, ETOH abuse, COPD who was admitted for urinary retention. Hyypoxic respiratory failure -f/u ABG, improved today -CTAP shows consolidation LL base, f/u CXR -continue AZT and Rocephin -f/u LA 2.6, ordered next one -added albumin 25% BID -pending blood cultures Liver cirrhosis/Ascites -paracentesis drained 7L -elevated AST and alk phos -ggt pending -called palliative care Atonic bladder Urinary retention -12mm bladder calculus seen on CT imaging -underwent cysto, urethral dilation, and 16f underwood catheter placement -cont IVF at rate 40 ml/hr COPD -continue IV steroids, Advair, Tudorza Acute kidney injury Cr 3.3, baseline unknown -avoid nephrotoxic substances Hyperproteinemia -protein gap 4.7 -SPEP and UPEP ordered F/E/N Fluids: D51/2NS @ 40mL/hr Electrolytes: f/u Nutrition: regular diet DVT prophylaxis: -SCDs Dispo: will transfer to med surg. Full Code. We will continue to follow the patient. Thank you for this consultative opportunity. Problem List - Problems (1) Acute kidney injury Code(s): N17.9 - ACUTE KIDNEY FAILURE, UNSPECIFIED (2) CKD (chronic kidney disease) Code(s): N18.9 - CHRONIC KIDNEY DISEASE, UNSPECIFIED (3) Liver cirrhosis Code(s): K74.60 - UNSPECIFIED CIRRHOSIS OF LIVER (4) Urinary retention Code(s): R33.9 - RETENTION OF URINE, UNSPECIFIED (5) Weakness Code(s): R53.1 - WEAKNESS Visit type - Emergency Visit Emergency Visit: Yes ED Registration Date: 08/20/16 Care time: The patient presented to the Emergency Department on the above date and was hospitalized for further evaluation of their emergent condition. - New Patient This patient is new to me today: No - Critical Care Critical Care patient: Yes Total Critical Care Time (in minutes): 30 Critical Care Statement: The care of this patient involved high complexity decision making to prevent further life threatening deterioration of the patient 's condition and/or to evalute & treat vital organ system(s) failure or risk of failure.
[2016-08-22] MEDS ORDERED: SODIUM CHLORIDE 1,000 ML IV STA (13:55)
--- NOTE | 2016-08-22 14:56 | CONSULT ---
Admitting History and Physical - Primary Care Physician PCP: Yani Keating - Admission History of Present Illness: 70 year-old man with a PMH of liver cirrhosis with ascites, polystubstance abuse , current ETOH abuse, COPD, current everyday smoker, and atonic bladder who was admitted for urinary retention. Found to have end stage cirrhotic liver disease with ascites, acute renal failure, and hypoxic respiratory failure. Per family member, pt had been eating soft foods at home like applesauce, always coughing with and without food, thought it was the COPD. Per nursing, trial of ensure and oatmeal resulted in greater coughing than baseline, and pt was made NPO. Pt presently on BIPAP, o2 sat 85-90%. - Past Medical History INDIVIDUAL PENSION CONSULTANT: No: Alzheimer's, CVA, Dementia, Migraine, Multiple Sclerosis, Peripheral Neuropathy, Parkinson's, Seizure, Syncope, TIA, Vertigo, Other Pulmonary: Yes: COPD Hepatobiliary: Yes: Cirrhosis, Other ( Alcoholism active drinker, chronic diarrhea, recurrent uncontrolled ascites, weight loss,status post multiple paracentesis) Renal/: Yes: Neurogenic Bladder Heme/Onc: Yes: Anemia Psych: Yes: Addictions Dermatology: Yes: Basal Cell - Past Surgical History Past Surgical History: Yes: Appendectomy, Colonoscopy, Upper Endoscopy - Smoking History Smoking history: Current every day smoker Have you smoked in the past 12 months: Yes - Alcohol/Substance Use Hx Alcohol Use: Yes History - Admission Reason For Visit: ACUTE KIDNEY INJURY WEAKNESS - Diagnostics X-ray: Report Reviewed - General Mental Status: Awake and Alert, Able to Follow Commands Attention: Intact - Hearing Hearing: Normal Speech Evaluation - Communication Primary Language: HAITIAN Communication: Yes: Within Normal Limits ( Could not be assessed/on BIPAP.) - Speech Characteristics Voice, Other Observations: Yes: Inadequate Breath Support (reported by GI yesterday.) - Swallow Evaluation/Bedside Assessment Current Nutritional Intake: NPO Recommendations - Speech Evaluation, Impression/Plan Impression: Pt presently on BIPAP, o2 sat 85-90%. Signs of dysphagia with responsive coughing reported. Speech and swallowing assessment pending pt's ability to come off Bipap for short period. To follow as pt improves. Agree with NPO for now.Mouth care, as tolerated. Recommendations: Other (RD recommendations:-"MVI, thiamin, folic acid. -Pt on NS IV fluids at this time. If not medically contraindicated, recommend clinimix @ 42cc/hr with added MVI -infuvite and thiamin to give 340 kcals, 42.5g protein")
--- NOTE | 2016-08-22 15:37 | PN ---
Progress Note, PAINTER DECORATOR - Note Progress Note: Pt asking to eat. Educated and counseled pt and family on relationship of respiration and deglutition and need for NPO until o2 sat/pulmonary function improves and pt can be off Bipap for at least a short period.Pt/Family demonstrated understanding.
[2016-08-22 16:30] LABS: ARTERIAL BLOOD GAS BASE EXCESS -5.3 meq/l (-2-2); ARTERIAL BLOOD GAS HCO3 19.8 meq/L (22-26); ARTERIAL BLOOD GAS pH 7.32 (7.35-7.45)
[2016-08-22 16:34] LABS: ALLENS TEST POSITIVE; ART PUNCT SITE RIGHT RADIAL; LPM/O2% 100; MECH. VENT. NO; PT. ON O2? YES; TYPE OF O2 BIPAP; VENT RATE 14
[2016-08-22] MEDS ORDERED: SODIUM CHLORIDE 1,000 ML IV SCH ×2 (18:04→18:15)
--- NOTE | 2016-08-22 18:34 | PN ---
Progress Note, Physician History of Present Illness: Pt seen and examined at bedside. He is awake however has shortness of breath. Pt complains of weakness and fatigue. He remains in the ICU. - Current Medication List Current Medications: Active Medications Albumin Human (Albumin Human 25%) 12.5 gm IVPB BID [facility] Stop: 08/23/16 10:01 Last Admin: 08/22/16 11:15 Dose: 12.5 gm Albuterol Sulfate (Ventolin 0.083% Nebulizer Soln -) 1 amp NEB Q4H PRN PRN Reason: SHORT OF BREATH/WHEEZING Albuterol/Ipratropium (Duoneb -) 1 amp NEB QIDR [facility] Last Admin: 08/22/16 06:40 Dose: 1 amp Chlordiazepoxide HCl (Librium -) 25 mg PO ONCE PRN PRN Reason: AGITATION Stop: 08/23/16 12:38 Diphenhydramine HCl (Benadryl Injection -) 25 mg IVPB HS PRN PRN Reason: INSOMNIA Ceftriaxone Sodium (Rocephin 1gm Ivpb (Pre-Docked)) 50 mls @ 100 mls/hr IVPB DAILY [facility] Azithromycin (Zithromax 500mg Ivpb (Pre-Docked)) 250 mls @ 250 mls/hr IVPB DAILY [facility] Sodium Chloride (Normal Saline -) 1,000 mls @ 125 mls/hr IV ASDIR [facility] Lorazepam (Ativan Injection -) 2 mg IVPUSH ONCE PRN PRN Reason: AGITATION Stop: 08/23/16 12:39 Morphine Sulfate (Morphine Injection -) 1 mg IVPUSH Q4H PRN PRN Reason: PAIN Nicotine (Nicoderm Patch -) 21 mg TD DAILY [facility] Fluticasone/Salmeterol (Advair 100mcg/50mcg -) 1 puff IH BID DEMETRI[facility] - Objective Vital Signs: Vital Signs Temperature 97.2 F L 08/22/16 17:20 Pulse Rate 100 H 08/22/16 17:20 Respiratory Rate 18 08/22/16 17:20 Blood Pressure 95/48 08/22/16 17:20 O2 Sat by Pulse Oximetry (%) 100 08/22/16 17:47 Constitutional: Yes: Calm Eyes: Yes: Conjunctiva Clear Cardiovascular: Yes: S1, S2 Respiratory: Yes: On Venti-Mask, Rhonchi Gastrointestinal: Yes: Soft, Ascites Genitourinary: Yes: [place] Present Musculoskeletal: Yes: Muscle Weakness Edema: No Neurological: Yes: Oriented Psychiatric: Yes: Oriented Labs: CBC, BMP 08/22/16 05:20 08/22/16 07:37 INR, PTT INR 1.22 (0.82-1.09) H 08/22/16 05:20 - ....Imaging Chest X-ray: Report Reviewed Problem List - Problems (1) Urinary retention Code(s): R33.9 - RETENTION OF URINE, UNSPECIFIED (2) Liver cirrhosis Code(s): K74.60 - UNSPECIFIED CIRRHOSIS OF LIVER (3) CKD (chronic kidney disease) Code(s): N18.9 - CHRONIC KIDNEY DISEASE, UNSPECIFIED Assessment/Plan Current Medications Generic Name Dose Route Start Last Admin Trade Name Freq PRN Reason Stop Dose Admin Albumin Human 12.5 gm 08/21/16 22:00 08/22/16 11:15 Albumin Human 25% IVPB 08/23/16 10:01 12.5 gm BID DEMETRIUS Administration Albuterol Sulfate 1 amp 08/22/16 10:31 Ventolin 0.083% Nebulizer Soln - NEB Q4H PRN SHORT OF BREATH/WHEEZING Albuterol/Ipratropium 1 amp 08/22/16 06:00 08/22/16 06:40 Duoneb - NEB 1 amp QIDR [facility] Administration Chlordiazepoxide HCl 25 mg 08/22/16 12:39 Librium - PO 08/23/16 12:38 ONCE PRN AGITATION Diphenhydramine HCl 25 mg 08/22/16 22:00 Benadryl Injection - IVPB HS PRN INSOMNIA Ceftriaxone Sodium 50 mls @ 100 mls/hr 08/23/16 10:00 Rocephin 1gm Ivpb (Pre-Docked) IVPB DAILY [facility] Azithromycin 250 mls @ 250 mls/hr 08/23/16 10:00 Zithromax 500mg Ivpb (Pre-Docked) IVPB DAILY [facility] Sodium Chloride 1,000 mls @ 125 mls/hr 08/22/16 18:15 Normal Saline - IV ASDIR [facility] Lorazepam 2 mg 08/22/16 12:40 Ativan Injection - IVPUSH 08/23/16 12:39 ONCE PRN AGITATION Morphine Sulfate 1 mg 08/22/16 10:31 Morphine Injection - IVPUSH Q4H PRN PAIN Nicotine 21 mg 08/23/16 10:00 Nicoderm Patch - TD DAILY [facility] Fluticasone/Salmeterol 1 puff 08/22/16 22:00 Advair 100mcg/50mcg - IH BID DEMETRIUS Impression 1. CKD with unclear baseline creatinine 2. liver cirrhosis 3. COPD 4. hx of etoh abuse 5. ascites 6. dysuria Plan - residential mental health worker is mildly improved - trial of albumin yesterday - follow up spep - avoid high volume paracentesis - cont bipap as needed - get cxr - monitor urine output - discussed with ICU team - prognosis is poor Dr Ren
--- NOTE | 2016-08-22 20:59 | HOSP ---
Subjective - Review of Symptoms Events since last encounter: called to see pt by rn who reports ox sat in 70s. Subjective: pt denies acute SOB, respiratory distress. C/o pain in head and lower back HEENT: Yes: Head Aches Pulmonary: No: Dyspnea Musculoskeletal: Yes: Back Pain Physical Examination Vital Signs: Vital Signs Temperature 97.2 F L 08/22/16 17:20 Pulse Rate 100 H 08/22/16 17:20 Respiratory Rate 18 08/22/16 17:20 Blood Pressure 95/48 08/22/16 17:20 O2 Sat by Pulse Oximetry (%) 100 08/22/16 17:47 Constitutional: Yes: Cachectic Cardiovascular: Yes: Regular Rate and Rhythm. No: Murmur, Rub Respiratory: Yes: CTA Bilaterally. No: Rales, Rhonchi, Tachypnea, Wheezes Gastrointestinal: Yes: Normal Bowel Sounds, Soft Labs: CBC, BMP 08/22/16 05:20 08/22/16 07:37 ABG Results ABG pH 7.39 (7.35-7.45) 08/22/16 21:05 ABG pCO2 at Pt Temp 31.3 mmHg (35-45) L D 08/22/16 21:05 ABG pO2 at Pt Temp 69.3 mmHg (70-100) L D 08/22/16 21:05 ABG HCO3 18.5 meq/L (22-26) L 08/22/16 21:05 ABG O2 Sat (Measured) 94.2 % (90-98.9) 08/22/16 21:05 ABG O2 Content 12.0 % vol (15-22) L 08/22/16 21:05 ABG Base Excess -5.2 meq/l (-2-2) L 08/22/16 21:05 Hospitalist Encounter Assessment: hypoxia - stat ABG, CXR ordered - pt repositioned on side. Ox sat 91% with good pleth waveform - will increase FIO2 on BiPAP to 80% pain - morphine given
[2016-08-22 21:12] LABS: ARTERIAL BLD GAS O2 SATURATION 94.2 % (90-98.9); ARTERIAL BLOOD GAS BASE EXCESS -5.2 meq/l (-2-2); ARTERIAL BLOOD GAS HCO3 18.5 meq/L (22-26); ARTERIAL BLOOD GAS pH 7.39 (7.35-7.45)
[2016-08-22 21:14] LABS: ALLENS TEST POSITIVE; ART PUNCT SITE RIGHT RADIAL; LPM/O2% 50; PT. ON O2? YES; TYPE OF O2 BIPAP; VENT RATE 14
[2016-08-22 21:17] LABS: ARTERIAL BLOOD GAS PO2 69.3 mmHg (70-100)
[2016-08-22] MEDS ORDERED: ACLIDINIUM BROMIDE 400 MCG/INH AERO.POWD IH SCH (22:00)
[2016-08-22] MEDS ORDERED: FLUTICASONE/SALMETEROL 100 MCG/50 MCG DISKUS IH SCH (22:00)
[2016-08-22] MEDS: ALBUTEROL SO4 2.5/IPRATROPIUM 0.5 INH SOL 3 ML VIAL.NEB. NEB SCH (23:38)
[2016-08-23 00:07] LABS: A/G RATIO 0.5 (0.7-1.7); ALBUMIN 2.1 g/dL (2.9-4.4); TOTAL PROTEIN 6.1 g/dL (6.0-8.5)
[2016-08-23] MEDS: ALBUTEROL SO4 2.5/IPRATROPIUM 0.5 INH SOL 3 ML VIAL.NEB. NEB SCH ×4 (06:04→23:20)
[2016-08-23 07:01] LABS: MCH 30.7 pg (25.7-33.7); MCHC 32.8 g/dl (32.0-35.9); MEAN CELL VOLUME 93.6 fl (80-96); MEAN PLT VOLUME 10.4 fl (7.5-11.1); PLATELET COUNT 102 K/MM3 (134-434); RDW 17.1 % (11.9-15.9); WHITE BLOOD COUNT 4.5 K/mm3 (4.0-10.0)
[2016-08-23 07:30] LABS: ALLENS TEST POSITIVE; ARTERIAL BLD GAS O2 SATURATION 98.9 % (90-98.9); ARTERIAL BLOOD GAS BASE EXCESS -5.4 meq/l (-2-2); ARTERIAL BLOOD GAS HCO3 18.2 meq/L (22-26)
[2016-08-23 07:31] LABS: ART PUNCT SITE RIGHT RADIAL; LPM/O2% 70%; MECH. VENT. BIPAP; PT. ON O2? YES; TYPE OF O2 BIPAP; VENT RATE 14
[2016-08-23 07:41] LABS: BILIRUBIN,TOTAL 0.8 mg/dL (0.2-1.0); CALCIUM 7.8 mg/dL (8.5-10.1); COCKROFT - GAULT 20.42; CREATININE 2.3 mg/dL (0.7-1.3); MAGNESIUM 1.8 mg/dL (1.8-2.4); PHOSPHOROUS 3.3 mg/dL (2.5-4.9); TOT PROT 5.2 g/dl (6.4-8.2)
[2016-08-23] MEDS ORDERED: PT OWN MED DRAWER 7, Y5N ONE (09:22)
[2016-08-23] MEDS: NICOTINE 21 MG/24 HOURS TOPICAL PATCH TD SCH (09:26)
[2016-08-23] MEDS: CEFTRIAXONE 50 ML IVPB SCH (09:27)
[2016-08-23] MEDS: FLUTICASONE/SALMETEROL 100 MCG/50 MCG DISKUS IH SCH ×2 (09:44→22:34)
[2016-08-23] MEDS: AZITHROMYCIN IVPB 250 ML IVPB SCH (09:56)
[2016-08-23] MEDS ORDERED: NICOTINE 21 MG/24 HOURS TOPICAL PATCH TD SCH (10:00)
[2016-08-23] MEDS ORDERED: AZITHROMYCIN IVPB 250 ML IVPB SCH (10:00)
[2016-08-23] MEDS ORDERED: CEFTRIAXONE 50 ML IVPB SCH (10:00)
--- NOTE | 2016-08-23 10:42 | PN ---
Progress Note (short form) - Note Progress Note: Subjective: The patient was seen and examined at the bedside, he remains on Bipap 70%. He states he is "feeling better today". Started on short course of steroids today Current Medications Generic Name Dose Route Start Last Admin Trade Name Freq PRN Reason Stop Dose Admin Albuterol Sulfate 1 amp 08/22/16 19:48 Ventolin 0.083% Nebulizer Soln - NEB Q4H PRN SHORT OF BREATH/WHEEZING Albuterol/Ipratropium 1 amp 08/23/16 00:00 08/23/16 12:00 Duoneb - NEB 1 amp QIDR [facility] Administration Diphenhydramine HCl 25 mg 08/22/16 22:00 Benadryl Injection - IVPB HS PRN INSOMNIA Sodium Chloride 1,000 mls @ 125 mls/hr 08/22/16 18:15 08/22/16 21:21 Normal Saline - IV Not Given ASDIR [facility] Azithromycin 250 mls @ 250 mls/hr 08/23/16 10:00 08/23/16 09:56 Zithromax 500mg Ivpb (Pre-Docked) IVPB 250 mls/hr DAILY [facility] Administration Ceftriaxone Sodium 50 mls @ 100 mls/hr 08/23/16 10:00 08/23/16 09:27 Rocephin 1gm Ivpb (Pre-Docked) IVPB 100 mls/hr DAILY [facility] Administration Methylprednisolone Sodium Succinate 40 mg 08/23/16 12:45 Solu-Medrol - IVPB Q8H-IV [facility] Morphine Sulfate 1 mg 08/22/16 19:48 08/22/16 21:20 Morphine Injection - IVPUSH 1 mg Q4H PRN Administration PAIN Nicotine 21 mg 08/23/16 10:00 08/23/16 09:26 Nicoderm Patch - TD 21 mg DAILY [facility] Administration Fluticasone/Salmeterol 1 puff 08/22/16 22:00 08/23/16 09:44 Advair 100mcg/50mcg - IH 1 puff BID DEMETRIUS Administration Objective: Vital Signs Period Temp Pulse Resp BP Sys/Rai Pulse Ox Last 24 Hr 95.7 F-98.1 F 82-100 14-18 92-109/48-54 50-100 Physical Exam: General: NAD, A&Ox3, cachectic, temporal wasting Lungs: Scattered rhonchi throughout Heart: RRR, S1S2 Abd: Soft, non-tender, distended. Normoactive bowel sounds Ext: Thin, 2+ DP/PT bilaterally Neuro: On bipap, patient refused CBCD WBC 4.5 K/mm3 (4.0-10.0) D 08/23/16 06:20 RBC 2.96 M/mm3 (4.00-5.60) L 08/23/16 06:20 Hgb 9.1 GM/dL (11.7-16.9) L 08/23/16 06:20 Hct 27.7 % (35.4-49) L 08/23/16 06:20 MCV 93.6 fl (80-96) 08/23/16 06:20 MCHC 32.8 g/dl (32.0-35.9) 08/23/16 06:20 RDW 17.1 % (11.9-15.9) H 08/23/16 06:20 Plt Count 102 K/MM3 (134-434) L D 08/23/16 06:20 MPV 10.4 fl (7.5-11.1) 08/23/16 06:20 CMP Sodium 143 mmol/L (136-145) 08/23/16 06:20 Potassium 3.8 mmol/L (3.5-5.1) D 08/23/16 06:20 Chloride 110 mmol/L (98-107) H D 08/23/16 06:20 Carbon Dioxide 21 mmol/L (21-32) 08/23/16 06:20 Anion Gap 12 (8-16) 08/23/16 06:20 BUN 69 mg/dL (7-18) H 08/23/16 06:20 Creatinine 2.3 mg/dL (0.7-1.3) H D 08/23/16 06:20 Creat Clearance w eGFR 28.17 (>60) 08/23/16 06:20 Random Glucose 51 mg/dL (74-106) L D 08/23/16 06:20 Calcium 7.8 mg/dL (8.5-10.1) L 08/23/16 06:20 Total Bilirubin 0.8 mg/dL (0.2-1.0) 08/23/16 06:20 AST 35 U/L (15-37) 08/23/16 06:20 ALT 8 U/L (12-78) L 08/23/16 06:20 Alkaline Phosphatase 198 U/L (45-117) H 08/23/16 06:20 Total Protein 5.2 g/dl (6.4-8.2) L 08/23/16 06:20 Albumin 2.0 g/dl (3.4-5.0) L 08/23/16 06:20 CARDIAC ENZYMES Creatine Kinase 27 IU/L (39-308) L 08/20/16 01:40 Troponin I 0.02 ng/ml (0.00-0.05) 08/20/16 01:40 Microbiology 08/20/16 16:30 Urine - Urine, Via Cystoscope Urine Culture - Preliminary Escherichia Coli 08/20/16 13:25 Peritoneal Fluid AFB Smear Concentration - Final 08/20/16 13:25 Peritoneal Fluid Mycobacterial Culture - Preliminary 08/21/16 19:40 Blood - Peripheral Venous Blood Culture - Preliminary NO GROWTH OBTAINED AFTER 24 HOURS, INCUBATION TO CONTINUE FOR 4 DAYS. 08/21/16 19:30 Blood - Peripheral Venous Blood Culture - Preliminary NO GROWTH OBTAINED AFTER 24 HOURS, INCUBATION TO CONTINUE FOR 4 DAYS. 08/20/16 13:25 Peritoneal Fluid Gram Stain - Final 08/20/16 13:25 Peritoneal Fluid Body Fluid Culture - Final NO GROWTH OF AEROBIC ORGANISMS AFTER 48 HOURS INCUBATION 08/20/16 13:25 Peritoneal Fluid Anaerobic Culture - Final NO ANAEROBES WERE ISOLATED 08/20/16 13:25 Peritoneal Fluid KETAN Preparation - Preliminary 08/20/16 13:25 Peritoneal Fluid Fungal Culture - Preliminary Assessment: This is a 70 year old male with PMHx of liver cirrhosis with ascites , polystubstance abuse, current ETOH abuse, COPD, current everyday smoker, and atonic bladder who was admitted for urinary retention. Found to have end stage cirrhotic liver disease with ascites, acute renal failure, and hypoxic respiratory failure. Plan: 1) Pulmonary: Acute hypoxic respiratory failure 2/2 pneumonia vs. COPD exacerbation - Remains on Bipap - Started on IV steroids today - Continue scheduled duonebs - Continue Advair - Appreciate pulmonary consult 2) ID: Severe sepsis 2/2 pneumonia vs. E.coli uti - As evidence by hypothermia, tachycardia, and lactic acidosis - Chest X-ray with left lung base consolidation - Continue Ceftriaxone - Continue Azithromycin E.coli UTI- baldwin sensitive - Continue Ceftriaxone 3) : Atonic bladder, acute urinary retention - S/p urethral dilation and underwood placement on 08/20 - Appreciate urology consult OLIVER multifactorial - 2/2 severe volume depletion, obstruction, large volume paracentesis - Cr has improved after receiving 2L NS bolus yesterday, 3.3->2.3 - Continue IV fluids and monitor urine output ( 4) GI: Liver cirrhosis, ascites - S/p 7L drainage from paracentesis with albumin replacement 5) Psych: Polysubstance abuse, alcohol abuse - No current evidence of withdrawal 6) F/E/N: - Severe malnutrition as evidence by BMI 16, temporal wasting, decrease in po intake, pressure ulcers - Regular diet, monitor closely for dysphagia, if occurs, will change diet - Monitor electrolytes 7) Prophylaxis: - Given drop in platelets today, will hold off on chemical DVT prophylaxis and place the patient on SCDs bilaterally - Monitor platelets tomorrow, if stable will start Heparin 5,000u sq bid 8) Dispo: - Awaiting placement at [place] CODE STATUS: DNR/DNI Visit type - Emergency Visit Emergency Visit: Yes ED Registration Date: 08/20/16 Care time: The patient presented to the Emergency Department on the above date and was hospitalized for further evaluation of their emergent condition. - New Patient This patient is new to me today: Yes Date on this admission: 08/23/16 - Critical Care Critical Care patient: No
[2016-08-23] MEDS: ALBUMIN HUMAN 25% 12.5 GM/50 ML VIAL IVPB SCH (12:04)
--- NOTE | 2016-08-23 12:33 | PN ---
Progress Note (short form) - Note Progress Note: PULMONARY More alert, awake today but remains hypoxic. Saturating only 81% on nasal cannula. +cough with yellow sputum. Last Vital Signs Temp Pulse Resp BP Pulse Ox 97.6 F 82 14 109/50 95 08/23/16 09:45 08/23/16 10:00 08/23/16 09:45 08/23/16 09:45 08/23/16 10:00 Intake & Output 08/20/16 08/21/16 08/22/16 08/23/16 23:59 23:59 23:59 23:59 Intake Total 350 1975 3070 1500 Output Total 272 186 7042 400 Balance 150 1775 1940 1100 Weight 94 lb 5.725 oz 89 lb 11.65 oz 108 lb 1 oz Gen: cachectic, more alert Heart: RRR Lung: bilateral rhonchi Abd: soft, nontender Ext: no edema CBC, BMP 08/23/16 06:20 08/23/16 06:20 Active Medications Albuterol Sulfate (Ventolin 0.083% Nebulizer Soln -) 1 amp NEB Q4H PRN PRN Reason: SHORT OF BREATH/WHEEZING Albuterol/Ipratropium (Duoneb -) 1 amp NEB QIDR [facility] Last Admin: 08/23/16 12:00 Dose: 1 amp Chlordiazepoxide HCl (Librium -) 25 mg PO ONCE PRN PRN Reason: AGITATION Stop: 08/23/16 12:38 Diphenhydramine HCl (Benadryl Injection -) 25 mg IVPB HS PRN PRN Reason: INSOMNIA Sodium Chloride (Normal Saline -) 1,000 mls @ 125 mls/hr IV [facility] Last Admin: 08/22/16 21:21 Dose: Not Given Azithromycin (Zithromax 500mg Ivpb (Pre-Docked)) 250 mls @ 250 mls/hr IVPB DAILY [facility] Last Admin: 08/23/16 09:56 Dose: 250 mls/hr Ceftriaxone Sodium (Rocephin 1gm Ivpb (Pre-Docked)) 50 mls @ 100 mls/hr IVPB DAILY [facility] Last Admin: 08/23/16 09:27 Dose: 100 mls/hr Lorazepam (Ativan Injection -) 2 mg IVPUSH ONCE PRN PRN Reason: AGITATION Stop: 08/23/16 12:39 Morphine Sulfate (Morphine Injection -) 1 mg IVPUSH Q4H PRN PRN Reason: PAIN Last Admin: 08/22/16 21:20 Dose: 1 mg Nicotine (Nicoderm Patch -) 21 mg TD DAILY [facility] Last Admin: 08/23/16 09:26 Dose: 21 mg Fluticasone/Salmeterol (Advair 100mcg/50mcg -) 1 puff IH BID [facility] Last Admin: 08/23/16 09:44 Dose: 1 puff A/P Acute Hypoxic Respiratory Failure Liver Cirrhosis Ascites s/p Large Volume Paracentesis ?Acute on Chronic Renal Failure Atonic Bladder UTI Alcohol Abuse COPD Atelectasis - continue antibiotics - taper FiO2 to keep SPo2 >90% - inhaled bronchodilators - start short course of empiric steroids - PO as tolerated - albumin as needed - aspiration precautions - DVT prophylaxis
--- NOTE | 2016-08-23 13:14 | PN ---
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 Nursing reported pt had a little eggs, oatmeal and OJ. Delayed cough with OJ, expectorated phlegm. Looking much stronger than yesterday. Now on nonrebreather. Voice with fair voluime, mild hoasrseness. Unable to draw from a straw. Swallow is reduced in VOM/ROM with suspected stasis/risk of aspiration. Pt eats pudding, yogurt, soups at home. Wants to be on soft diet to select fish, cottage cheese etc. Occasional throat clearing. Dysphagia with suspected stasis/risk of aspiration. MBS would be beneficial, however, pending hospice. .Pt wants to eat and PO intake is important for his quality of klife, as tolerated. Pt is DNR. Monitor PO tolerance. If difficulty, dys puree/nectar Palliative care- plan for [place].
--- NOTE | 2016-08-23 14:35 | PN ---
Progress Note, Physician History of Present Illness: Pt seen and examined at bedside. He is more awake today than he was yesterday. - Current Medication List Current Medications: Active Medications Albuterol Sulfate (Ventolin 0.083% Nebulizer Soln -) 1 amp NEB Q4H PRN PRN Reason: SHORT OF BREATH/WHEEZING Albuterol/Ipratropium (Duoneb -) 1 amp NEB QIDR [facility] Last Admin: 08/23/16 12:00 Dose: 1 amp Diphenhydramine HCl (Benadryl Injection -) 25 mg IVPB HS PRN PRN Reason: INSOMNIA Sodium Chloride (Normal Saline -) 1,000 mls @ 125 mls/hr IV ASDIR [facility] Last Admin: 08/22/16 21:21 Dose: Not Given Azithromycin (Zithromax 500mg Ivpb (Pre-Docked)) 250 mls @ 250 mls/hr IVPB DAILY [facility] Last Admin: 08/23/16 09:56 Dose: 250 mls/hr Ceftriaxone Sodium (Rocephin 1gm Ivpb (Pre-Docked)) 50 mls @ 100 mls/hr IVPB DAILY [facility] Last Admin: 08/23/16 09:27 Dose: 100 mls/hr Methylprednisolone Sodium Succinate (Solu-Medrol -) 40 mg IVPB Q8H-IV [facility] Morphine Sulfate (Morphine Injection -) 1 mg IVPUSH Q4H PRN PRN Reason: PAIN Last Admin: 08/22/16 21:20 Dose: 1 mg Nicotine (Nicoderm Patch -) 21 mg TD DAILY [facility] Last Admin: 08/23/16 09:26 Dose: 21 mg Fluticasone/Salmeterol (Advair 100mcg/50mcg -) 1 puff IH BID [facility] Last Admin: 08/23/16 09:44 Dose: 1 puff - Objective Vital Signs: Vital Signs Temperature 97.6 F 08/23/16 09:45 Pulse Rate 82 08/23/16 10:00 Respiratory Rate 14 08/23/16 09:45 Blood Pressure 109/50 08/23/16 09:45 O2 Sat by Pulse Oximetry (%) 95 08/23/16 10:00 Constitutional: Yes: Calm Eyes: Yes: Conjunctiva Clear Cardiovascular: Yes: S1, S2 Respiratory: Yes: On Nasal O2, Rhonchi Gastrointestinal: Yes: Soft Genitourinary: Yes: [place] Present Musculoskeletal: Yes: Muscle Weakness Edema: No Neurological: Yes: Oriented Psychiatric: Yes: Oriented Labs: CBC, BMP 08/23/16 06:20 08/23/16 06:20 INR, PTT INR 1.22 (0.82-1.09) H 08/22/16 05:20 Problem List - Problems (1) Urinary retention Code(s): R33.9 - RETENTION OF URINE, UNSPECIFIED (2) Liver cirrhosis Code(s): K74.60 - UNSPECIFIED CIRRHOSIS OF LIVER (3) CKD (chronic kidney disease) Code(s): N18.9 - CHRONIC KIDNEY DISEASE, UNSPECIFIED Assessment/Plan Current Medications Generic Name Dose Route Start Last Admin Trade Name Freq PRN Reason Stop Dose Admin Albuterol Sulfate 1 amp 08/22/16 19:48 Ventolin 0.083% Nebulizer Soln - NEB Q4H PRN SHORT OF BREATH/WHEEZING Albuterol/Ipratropium 1 amp 08/23/16 00:00 08/23/16 12:00 Duoneb - NEB 1 amp QIDR [facility] Administration Diphenhydramine HCl 25 mg 08/22/16 22:00 Benadryl Injection - IVPB HS PRN INSOMNIA Sodium Chloride 1,000 mls @ 125 mls/hr 08/22/16 18:15 08/22/16 21:21 Normal Saline - IV Not Given ASDIR DEMETRIUS Azithromycin 250 mls @ 250 mls/hr 08/23/16 10:00 08/23/16 09:56 Zithromax 500mg Ivpb (Pre-Docked) IVPB 250 mls/hr DAILY [facility] Administration Ceftriaxone Sodium 50 mls @ 100 mls/hr 08/23/16 10:00 08/23/16 09:27 Rocephin 1gm Ivpb (Pre-Docked) IVPB 100 mls/hr DAILY [facility] Administration Methylprednisolone Sodium Succinate 40 mg 08/23/16 12:45 Solu-Medrol - IVPB Q8H-IV [facility]RI[facility] Morphine Sulfate 1 mg 08/22/16 19:48 08/22/16 21:20 Morphine Injection - IVPUSH 1 mg Q4H PRN Administration PAIN Nicotine 21 mg 08/23/16 10:00 08/23/16 09:26 Nicoderm Patch - TD 21 mg DAILY [facility] Administration Fluticasone/Salmeterol 1 puff 08/22/16 22:00 08/23/16 09:44 Advair 100mcg/50mcg - IH 1 puff BID DEMETRIUS Administration Impression 1. CKD with unclear baseline creatinine 2. liver cirrhosis 3. COPD 4. hx of etoh abuse 5. ascites 6. dysuria Plan - renal function is improving - decrease rate of fluid - repeat labs in am - monitor underwood output - keep underwood in place for now - urology follow up - follow up spep - avoid high volume paracentesis - cont bipap as needed - prognosis is poor Dr Ren
[2016-08-23] MEDS: methylPREDNISolone NA SUCC 40 MG/1 ML VIAL IVPB SCH ×2 (14:55→17:59)
[2016-08-23] MEDS: SODIUM CHLORIDE 1,000 ML IV SCH (15:52)
[2016-08-23] MEDS ORDERED: HEPARIN NA (PORCINE) 5,000 UNITS/ML 1ML VIAL SQ SCH (22:00)
[2016-08-23] MEDS: morphine CARPU-JECT 2 MG/1 ML DISP.SYRIN IVPUSH PRN (23:05)
[2016-08-24] MEDS: methylPREDNISolone NA SUCC 40 MG/1 ML VIAL IVPB SCH ×3 (02:42→19:25)
[2016-08-24] MEDS: morphine CARPU-JECT 2 MG/1 ML DISP.SYRIN IVPUSH PRN ×2 (03:14→22:23)
[2016-08-24] MEDS: ALBUTEROL SO4 2.5/IPRATROPIUM 0.5 INH SOL 3 ML VIAL.NEB. NEB SCH ×4 (06:40→23:32)
[2016-08-24 09:25] LABS: BASOPHIL 0.2 % (0-2.0); MCH 31.4 pg (25.7-33.7); MCHC 33.7 g/dl (32.0-35.9); MEAN CELL VOLUME 93.3 fl (80-96); MEAN PLT VOLUME 10.7 fl (7.5-11.1); NEUTROPHILS 84.2 % (42.8-82.8); PLATELET COUNT 115 K/MM3 (134-434); RDW 16.8 % (11.9-15.9); WHITE BLOOD COUNT 3.7 K/mm3 (4.0-10.0)
[2016-08-24 09:50] LABS: ALBUMIN 2.2 g/dl (3.4-5.0); BILIRUBIN,TOTAL 0.6 mg/dL (0.2-1.0); CALCIUM 8.3 mg/dL (8.5-10.1); COCKROFT - GAULT 27.63; CREATININE 1.7 mg/dL (0.7-1.3); TOT PROT 5.7 g/dl (6.4-8.2)
[2016-08-24] MEDS ORDERED: PT OWN MED DRAWER 7, Y5N ONE (10:22)
[2016-08-24] MEDS: NICOTINE 21 MG/24 HOURS TOPICAL PATCH TD SCH (10:26)
[2016-08-24] MEDS: FLUTICASONE/SALMETEROL 100 MCG/50 MCG DISKUS IH SCH ×2 (10:32→22:28)
--- NOTE | 2016-08-24 10:32 | PN ---
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 Looking much stronger than yesterday. Now on nasal o2. Voice with fair voluime, mild hoarseness. Swallow is reduced in VOM/ROM with suspected stasis/risk of aspiration. Pt eats pudding, yogurt, soups at home. Wants to be on soft diet to select fish, cottage cheese etc. Occasional throat clearing. He could not eat omelet sent. ( on reg diet, per pt request). Coughing on thin liquid. Palliative care- plan for [place]. MBS would be beneficial, however, pending hospice. .Pt wants to eat and PO intake is important for his quality of life, as tolerated. Pt is DNR. IMP:Dysphagia with suspected stasis with solids in pharynx/cough Aspiration on thin liquid REC:ideally dys puree/ nectar thick liquid/ 1-2 soft items per pt's request ( cottage cheese, fish,quiche) Ensure compact,Magic cup
[2016-08-24] MEDS: CEFTRIAXONE 50 ML IVPB SCH (11:36)
[2016-08-24] MEDS: AZITHROMYCIN IVPB 250 ML IVPB SCH (13:48)
--- NOTE | 2016-08-24 14:32 | PN ---
Physical Exam: SUBJECTIVE: Patient seen and examined at bed side. patient reports feeling and breathing better. He is more awake today than he was yesterday. denies CP, N/V/D/C, fevers, chills. More alert, awake today but remains hypoxic. Saturating only 89 on RA, currently on ventimask. OBJECTIVE: Vital Signs Period Temp Pulse Resp BP Sys/Rai Pulse Ox Last 24 Hr 97.5 F-98.4 F 57-100 16-24 94-109/46-59 94-95 GENERAL: The patient is awake, alert, and fully oriented, sever Cachectic, in mild respiratory distress, sitting comfortably. uremic byrne HEAD: Normal with no signs of trauma. sever temporal wasting, EYES: PERRL, extraocular movements intact, sclera anicteric, conjunctiva clear. ENT: Ears normal, nares patent, oropharynx clear without exudates, dry mucous membranes. NECK: Trachea midline, full range of motion, supple. LUNGS: Breath sounds equal decreased bilateraly at bseses, diffused Ronchi clear to auscultation bilaterally, no wheezes, no crackles, no accessory muscle use. HEART: Regular rate and rhythm, S1, S2 without murmur, rub or gallop. ABDOMEN: Soft, nontender, + distended, tempanic, normoactive bowel sounds, no guarding, no rebound, no hepatosplenomegaly, no masses. EXTREMITIES: 2+ pulses, warm, well-perfused, no edema. NEUROLOGICAL: Cranial nerves II through XII grossly intact. no asymmetry, Normal speech, gait not observed. PSYCH: Normal mood, normal affect, positive mood. SKIN: uremic byrne Laboratory Results - last 24 hr 08/24/16 08/24/16 08:50 08:50 WBC 3.7 L RBC 2.91 L Hgb 9.1 L Hct 27.1 L MCV 93.3 MCHC 33.7 RDW 16.8 H Plt Count 115 L MPV 10.7 Neutrophils % 84.2 H Lymphocytes % 13.3 D Monocytes % 2.3 L Eosinophils % 0.0 Basophils % 0.2 Sodium 145 Potassium 4.1 Chloride 113 H Carbon Dioxide 22 Anion Gap 10 BUN 57 H Creatinine 1.7 H D Creat Clearance w eGFR 39.93 Random Glucose 169 H D Calcium 8.3 L Total Bilirubin 0.6 D AST 34 ALT 12 D Alkaline Phosphatase 252 H D Total Protein 5.7 L Albumin 2.2 L Active Medications Generic Name Dose Route Start Last Admin Trade Name Freq PRN Reason Stop Dose Admin Albuterol Sulfate 1 amp 08/22/16 19:48 Ventolin 0.083% Nebulizer Soln - NEB Q4H PRN SHORT OF BREATH/WHEEZING Albuterol/Ipratropium 1 amp 08/23/16 00:00 08/24/16 11:50 Duoneb - NEB 1 amp QIDR [facility] Administration Diphenhydramine HCl 25 mg 08/22/16 22:00 Benadryl Injection - IVPB HS PRN INSOMNIA Azithromycin 250 mls @ 250 mls/hr 08/23/16 10:00 08/24/16 13:48 Zithromax 500mg Ivpb (Pre-Docked) IVPB 250 mls/hr DAILY [facility] Administration Ceftriaxone Sodium 50 mls @ 100 mls/hr 08/23/16 10:00 08/24/16 11:36 Rocephin 1gm Ivpb (Pre-Docked) IVPB 100 mls/hr DAILY [facility] Administration Sodium Chloride 1,000 mls @ 50 mls/hr 08/23/16 14:36 08/23/16 15:52 Normal Saline - IV 50 mls/hr ASDIR [facility] Administration Methylprednisolone Sodium Succinate 40 mg 08/23/16 12:45 08/24/16 10:25 Solu-Medrol - IVPB 40 mg Q8H-IV [facility] Administration Morphine Sulfate 1 mg 08/22/16 19:48 08/24/16 03:14 Morphine Injection - IVPUSH 1 mg Q4H PRN Administration PAIN Nicotine 21 mg 08/23/16 10:00 08/24/16 10:26 Nicoderm Patch - TD 21 mg DAILY [facility] Administration Fluticasone/Salmeterol 1 puff 08/22/16 22:00 08/24/16 10:32 Advair 100mcg/50mcg - IH Not Given BID [facility] ASSESSMENT/PLAN: 70 year old male with PMHx of liver cirrhosis with ascites, polystubstance abuse , current ETOH abuse, COPD, current everyday smoker, and atonic bladder who was admitted for urinary retention. Found to have end stage cirrhotic liver disease with ascites, acute renal failure, and hypoxic respiratory failure. afebrile, tachypnic, tachycardic, Saturating 89% RA, currently on a Venti mask. A/P Acute Hypoxic Respiratory Failure ID: Severe sepsis 2/2 pneumonia vs. E.coli uti, baldwin sensitive Liver Cirrhosis Ascites s/p Large Volume Paracentesis Acute on Chronic Renal Failure Atonic Bladder, acute urinary retention- Eugene catheter placed today UTI poly substance abuse COPD Atelectasis Acute Hypoxic Respiratory Failure 2/2 PNA vs acute on chronic COPD exacerbation Chest X-ray with left lung base consolidation increasing in size two day sago, will consider repeating CXR in AM. inhaled bronchodilators, Continue scheduled duonebs continue short course of IV steroids Taper FiO2 to keep SPo2 >90%- Remains on Bipap aspiration precautions COPD Liver Cirrhosis, ascites Ascites s/p Large Volume Paracentesis CKD with unclear baseline creatinine-improving continue antibiotics per ID Albumin as needed DVT prophylaxis GI prophylaxis Dispo: poor prognosis - Awaiting placement at [place] Visit type - Emergency Visit Emergency Visit: Yes ED Registration Date: 08/20/16 Care time: The patient presented to the Emergency Department on the above date and was hospitalized for further evaluation of their emergent condition. - New Patient This patient is new to me today: No - Critical Care Critical Care patient: No
--- NOTE | 2016-08-24 14:40 | PN ---
Progress Note (short form) - Note Progress Note: PULMONARY AWAKE/ALERT WANTS TO SIT UP AND DANGLE LEGS SPO2 89% R/A APPEARS CACHETIC RHONCHI SCATTERED RSR SOFT NO EDEMA LABS/MEDS/NOTES/IMAGING REVIEWED Acute Hypoxic Respiratory Failure Liver Cirrhosis Ascites s/p Large Volume Paracentesis ?Acute on Chronic Renal Failure Atonic Bladder UTI Alcohol Abuse COPD Atelectasis - continue antibiotics - taper FiO2 to keep SPo2 >90% - inhaled bronchodilators - start short course of empiric steroids - PO as tolerated - albumin as needed - aspiration precautions - DVT prophylaxis Jose Stewart
--- NOTE | 2016-08-24 14:41 | PN ---
Teaching Attending Note Name of Resident: Veronica Gonzalez ATTENDING PHYSICIAN STATEMENT I saw and evaluated the patient. I reviewed the resident's note and discussed the case with the resident. I agree with the resident's findings and plan as documented. SEE SEPARATE PULMONARY NOTE R EUN Stewart
--- NOTE | 2016-08-24 14:43 | PN ---
Progress Note, Physician History of Present Illness: Pt seen and examined at bedside. He appears more comfortable today. He is much more awake and alert. - Current Medication List Current Medications: Active Medications Albuterol Sulfate (Ventolin 0.083% Nebulizer Soln -) 1 amp NEB Q4H PRN PRN Reason: SHORT OF BREATH/WHEEZING Albuterol/Ipratropium (Duoneb -) 1 amp NEB QIDR [facility] Last Admin: 08/24/16 11:50 Dose: 1 amp Diphenhydramine HCl (Benadryl Injection -) 25 mg IVPB HS PRN PRN Reason: INSOMNIA Azithromycin (Zithromax 500mg Ivpb (Pre-Docked)) 250 mls @ 250 mls/hr IVPB DAILY [facility] Last Admin: 08/24/16 13:48 Dose: 250 mls/hr Ceftriaxone Sodium (Rocephin 1gm Ivpb (Pre-Docked)) 50 mls @ 100 mls/hr IVPB DAILY [facility] Last Admin: 08/24/16 11:36 Dose: 100 mls/hr Sodium Chloride (Normal Saline -) 1,000 mls @ 50 mls/hr IV ASDIR [facility] Last Admin: 08/23/16 15:52 Dose: 50 mls/hr Methylprednisolone Sodium Succinate (Solu-Medrol -) 40 mg IVPB Q8H-IV [facility] Last Admin: 08/24/16 10:25 Dose: 40 mg Morphine Sulfate (Morphine Injection -) 1 mg IVPUSH Q4H PRN PRN Reason: PAIN Last Admin: 08/24/16 03:14 Dose: 1 mg Nicotine (Nicoderm Patch -) 21 mg TD DAILY [facility] Last Admin: 08/24/16 10:26 Dose: 21 mg Fluticasone/Salmeterol (Advair 100mcg/50mcg -) 1 puff IH BID [facility] Last Admin: 08/24/16 10:32 Dose: Not Given - Objective Vital Signs: Vital Signs Temperature 98.1 F 08/24/16 09:35 Pulse Rate 100 H 08/24/16 10:20 Respiratory Rate 24 08/24/16 10:20 Blood Pressure 96/59 08/24/16 10:20 O2 Sat by Pulse Oximetry (%) 94 L 08/24/16 11:00 Constitutional: Yes: Calm Eyes: Yes: Conjunctiva Clear HENT: Yes: Atraumatic Cardiovascular: Yes: S1, S2 Respiratory: Yes: On Nasal O2, Rhonchi Gastrointestinal: Yes: Soft, Ascites Genitourinary: Yes: Underwood Present Musculoskeletal: Yes: Muscle Weakness Edema: No Neurological: Yes: Oriented Psychiatric: Yes: Oriented Labs: CBC, BMP 08/24/16 08:50 08/24/16 08:50 INR, PTT INR 1.22 (0.82-1.09) H 08/22/16 05:20 Problem List - Problems (1) Urinary retention Code(s): R33.9 - RETENTION OF URINE, UNSPECIFIED (2) Liver cirrhosis Code(s): K74.60 - UNSPECIFIED CIRRHOSIS OF LIVER (3) CKD (chronic kidney disease) Code(s): N18.9 - CHRONIC KIDNEY DISEASE, UNSPECIFIED Assessment/Plan Current Medications Generic Name Dose Route Start Last Admin Trade Name Freq PRN Reason Stop Dose Admin Albuterol Sulfate 1 amp 08/22/16 19:48 Ventolin 0.083% Nebulizer Soln - NEB Q4H PRN SHORT OF BREATH/WHEEZING Albuterol/Ipratropium 1 amp 08/23/16 00:00 08/24/16 11:50 Duoneb - NEB 1 amp QIDR [facility] Administration Diphenhydramine HCl 25 mg 08/22/16 22:00 Benadryl Injection - IVPB HS PRN INSOMNIA Azithromycin 250 mls @ 250 mls/hr 08/23/16 10:00 08/24/16 13:48 Zithromax 500mg Ivpb (Pre-Docked) IVPB 250 mls/hr DAILY [facility] Administration Ceftriaxone Sodium 50 mls @ 100 mls/hr 08/23/16 10:00 08/24/16 11:36 Rocephin 1gm Ivpb (Pre-Docked) IVPB 100 mls/hr DAILY [facility] Administration Sodium Chloride 1,000 mls @ 50 mls/hr 08/23/16 14:36 08/23/16 15:52 Normal Saline - IV 50 mls/hr ASDIR [facility] Administration Methylprednisolone Sodium Succinate 40 mg 08/23/16 12:45 08/24/16 10:25 Solu-Medrol - IVPB 40 mg Q8H-IV [facility] Administration Morphine Sulfate 1 mg 08/22/16 19:48 08/24/16 03:14 Morphine Injection - IVPUSH 1 mg Q4H PRN Administration PAIN Nicotine 21 mg 08/23/16 10:00 08/24/16 10:26 Nicoderm Patch - TD 21 mg DAILY [facility] Administration Fluticasone/Salmeterol 1 puff 08/22/16 22:00 08/24/16 10:32 Advair 100mcg/50mcg - IH Not Given BID DEMET[facility]US Impression 1. CKD with unclear baseline creatinine 2. liver cirrhosis 3. COPD 4. hx of etoh abuse 5. ascites 6. dysuria 7. OLIVER Plan - renal function continues to improve - can decrease fluid further - repeat labs in am - monitor underwood output - keep underwood in place for now - urology follow up - follow up spep - prognosis is poor Dr Ren
--- NOTE | 2016-08-24 17:20 | PN ---
Progress Note (short form) - Note Progress Note: Subjective: The patient was seen and examined at the bedside, he is upset that his diet was changed to dyphagia for lunch. Current Medications Generic Name Dose Route Start Last Admin Trade Name Freq PRN Reason Stop Dose Admin Albuterol Sulfate 1 amp 08/22/16 19:48 Ventolin 0.083% Nebulizer Soln - NEB Q4H PRN SHORT OF BREATH/WHEEZING Albuterol/Ipratropium 1 amp 08/23/16 00:00 08/24/16 11:50 Duoneb - NEB 1 amp QIDR [facility] Administration Diphenhydramine HCl 25 mg 08/22/16 22:00 Benadryl Injection - IVPB HS PRN INSOMNIA Azithromycin 250 mls @ 250 mls/hr 08/23/16 10:00 08/24/16 13:48 Zithromax 500mg Ivpb (Pre-Docked) IVPB 250 mls/hr DAILY [facility] Administration Ceftriaxone Sodium 50 mls @ 100 mls/hr 08/23/16 10:00 08/24/16 11:36 Rocephin 1gm Ivpb (Pre-Docked) IVPB 100 mls/hr DAILY [facility] Administration Sodium Chloride 1,000 mls @ 50 mls/hr 08/23/16 14:36 08/23/16 15:52 Normal Saline - IV 50 mls/hr ASDIR [facility] Administration Methylprednisolone Sodium Succinate 40 mg 08/23/16 12:45 08/24/16 10:25 Solu-Medrol - IVPB 40 mg Q8H-IV [facility]US Administration Morphine Sulfate 1 mg 08/22/16 19:48 08/24/16 03:14 Morphine Injection - IVPUSH 1 mg Q4H PRN Administration PAIN Nicotine 21 mg 08/23/16 10:00 08/24/16 10:26 Nicoderm Patch - TD 21 mg DAILY [facility] Administration Fluticasone/Salmeterol 1 puff 08/22/16 22:00 08/24/16 10:32 Advair 100mcg/50mcg - IH Not Given BID DEMETRIUS Objective: Vital Signs Period Temp Pulse Resp BP Sys/Rai Pulse Ox Last 24 Hr 97.5 F-98.4 F 57-105 16-24 94-109/46-62 94-95 Physical Exam: General: NAD, A&Ox3, cachectic, temporal wasting HEENT: 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 Normoactive bowel sounds Ext: Thin, 2+ DP/PT bilaterally Neuro: Patient refused CBCD WBC 3.7 K/mm3 (4.0-10.0) L 08/24/16 08:50 RBC 2.91 M/mm3 (4.00-5.60) L 08/24/16 08:50 Hgb 9.1 GM/dL (11.7-16.9) L 08/24/16 08:50 Hct 27.1 % (35.4-49) L 08/24/16 08:50 MCV 93.3 fl (80-96) 08/24/16 08:50 MCHC 33.7 g/dl (32.0-35.9) 08/24/16 08:50 RDW 16.8 % (11.9-15.9) H 08/24/16 08:50 Plt Count 115 K/MM3 (134-434) L 08/24/16 08:50 MPV 10.7 fl (7.5-11.1) 08/24/16 08:50 CMP Sodium 145 mmol/L (136-145) 08/24/16 08:50 Potassium 4.1 mmol/L (3.5-5.1) 08/24/16 08:50 Chloride 113 mmol/L (98-107) H 08/24/16 08:50 Carbon Dioxide 22 mmol/L (21-32) 08/24/16 08:50 Anion Gap 10 (8-16) 08/24/16 08:50 BUN 57 mg/dL (7-18) H 08/24/16 08:50 Creatinine 1.7 mg/dL (0.7-1.3) H D 08/24/16 08:50 Creat Clearance w eGFR 39.93 (>60) 08/24/16 08:50 Random Glucose 169 mg/dL (74-106) H D 08/24/16 08:50 Calcium 8.3 mg/dL (8.5-10.1) L 08/24/16 08:50 Total Bilirubin 0.6 mg/dL (0.2-1.0) D 08/24/16 08:50 AST 34 U/L (15-37) 08/24/16 08:50 ALT 12 U/L (12-78) D 08/24/16 08:50 Alkaline Phosphatase 252 U/L (45-117) H D 08/24/16 08:50 Total Protein 5.7 g/dl (6.4-8.2) L 08/24/16 08:50 Albumin 2.2 g/dl (3.4-5.0) L 08/24/16 08:50 CARDIAC ENZYMES Creatine Kinase 27 IU/L (39-308) L 08/20/16 01:40 Troponin I 0.02 ng/ml (0.00-0.05) 08/20/16 01:40 Microbiology 08/21/16 19:40 Blood - Peripheral Venous Blood Culture - Preliminary NO GROWTH OBTAINED AFTER 48 HOURS, INCUBATION TO CONTINUE FOR 3 DAYS. 08/21/16 19:30 Blood - Peripheral Venous Blood Culture - Preliminary NO GROWTH OBTAINED AFTER 48 HOURS, INCUBATION TO CONTINUE FOR 3 DAYS. 08/20/16 16:30 Urine - Urine, Via Cystoscope Urine Culture - Final Escherichia Coli 08/20/16 13:25 Peritoneal Fluid AFB Smear Concentration - Final 08/20/16 13:25 Peritoneal Fluid Mycobacterial Culture - Preliminary 08/20/16 13:25 Peritoneal Fluid Gram Stain - Final 08/20/16 13:25 Peritoneal Fluid Body Fluid Culture - Final NO GROWTH OF AEROBIC ORGANISMS AFTER 48 HOURS INCUBATION 08/20/16 13:25 Peritoneal Fluid Anaerobic Culture - Final NO ANAEROBES WERE ISOLATED 08/20/16 13:25 Peritoneal Fluid KETAN Preparation - Preliminary 08/20/16 13:25 Peritoneal Fluid Fungal Culture - Preliminary Assessment: This is a 70 year old male with PMHx of liver cirrhosis with ascites , polystubstance abuse, current ETOH abuse, COPD, current everyday smoker, and atonic bladder who was admitted for urinary retention. Found to have end stage cirrhotic liver disease with ascites, acute renal failure, and hypoxic respiratory failure. Plan: 1) Pulmonary: Acute hypoxic respiratory failure 2/2 pneumonia vs. COPD exacerbation - Remains on Bipap - Started on IV steroids today - Continue scheduled duonebs - Continue Advair - Appreciate pulmonary consult 2) ID: Severe sepsis 2/2 pneumonia vs. E.coli uti - As evidence by hypothermia, tachycardia, and lactic acidosis - Chest X-ray with left lung base consolidation - Continue Ceftriaxone - Continue Azithromycin E.coli UTI- baldwin sensitive - Continue Ceftriaxone 3) : Atonic bladder, acute urinary retention - S/p urethral dilation and underwood placement on 08/20 - Appreciate urology consult OLIVER multifactorial - 2/2 severe volume depletion, obstruction, large volume paracentesis - Cr has improved 3.3->2.3->1.7 - Continue IV fluids and monitor urine output 4) GI: Liver cirrhosis, ascites - S/p 7L drainage from paracentesis with albumin replacement 5) Psych: Polysubstance abuse, alcohol abuse - No current evidence of withdrawal 6) F/E/N: - Severe malnutrition as evidence by BMI 16, temporal wasting, decrease in po intake, pressure ulcers - Soft diet - Monitor electrolytes 7) Prophylaxis: - Given drop in platelets today, will hold off on chemical DVT prophylaxis and place the patient on SCDs bilaterally - Monitor platelets tomorrow, if stable will start Heparin 5,000u sq bid 8) Dispo: - Awaiting placement at [facility] CODE STATUS: DNR/DNI Visit type - Emergency Visit Emergency Visit: Yes ED Registration Date: 08/20/16 Care time: The patient presented to the Emergency Department on the above date and was hospitalized for further evaluation of their emergent condition. - New Patient This patient is new to me today: No - Critical Care Critical Care patient: No
[2016-08-24] MEDS: SODIUM CHLORIDE 1,000 ML IV SCH (22:29)
[2016-08-25] MEDS: morphine CARPU-JECT 2 MG/1 ML DISP.SYRIN IVPUSH PRN (02:33)
[2016-08-25] MEDS: methylPREDNISolone NA SUCC 40 MG/1 ML VIAL IVPB SCH ×3 (02:38→21:34)
[2016-08-25] MEDS: SODIUM CHLORIDE 1,000 ML IV SCH (06:45)
[2016-08-25] MEDS: ALBUTEROL SO4 2.5/IPRATROPIUM 0.5 INH SOL 3 ML VIAL.NEB. NEB SCH ×4 (06:49→23:25)
[2016-08-25 09:29] LABS: ALBUMIN 2.3 g/dl (3.4-5.0); COCKROFT - GAULT 31.76; CREATININE 1.5 mg/dL (0.7-1.3)
[2016-08-25 09:31] LABS: BILIRUBIN,TOTAL 0.8 mg/dL (0.2-1.0); TOT PROT 6.2 g/dl (6.4-8.2)
[2016-08-25] MEDS ORDERED: PT OWN MED DRAWER 7, Y5N ONE (10:23)
[2016-08-25] MEDS: NICOTINE 21 MG/24 HOURS TOPICAL PATCH TD SCH (10:30)
[2016-08-25 11:28] LABS: MCH 31.2 pg (25.7-33.7); MCHC 33.2 g/dl (32.0-35.9); MEAN CELL VOLUME 94.1 fl (80-96); MEAN PLT VOLUME 10.7 fl (7.5-11.1); PLATELET COUNT 131 K/MM3 (134-434); RDW 17.4 % (11.9-15.9); WHITE BLOOD COUNT 6.7 K/mm3 (4.0-10.0)
[2016-08-25] MEDS ORDERED: LORAZEPAM CARPU-JECT 2 MG/ML DISP.SYRIN IVPUSH PRN (11:49)
--- NOTE | 2016-08-25 11:59 | PN ---
Progress Note, Physician History of Present Illness: Pt seen and examined at bedside. He is awake and alert. He has poor PO intake. - Current Medication List Current Medications: Active Medications Albuterol Sulfate (Ventolin 0.083% Nebulizer Soln -) 1 amp NEB Q4H PRN PRN Reason: SHORT OF BREATH/WHEEZING Albuterol/Ipratropium (Duoneb -) 1 amp NEB QIDR [facility] Last Admin: 08/25/16 06:49 Dose: 1 amp Budesonide/Formoterol Fumarate (Symbicort 80/4.5mcg -) 2 puff IH BID [facility] Diphenhydramine HCl (Benadryl Injection -) 25 mg IVPB HS PRN PRN Reason: INSOMNIA Azithromycin (Zithromax 500mg Ivpb (Pre-Docked)) 250 mls @ 250 mls/hr IVPB DAILY [facility] Last Admin: 08/24/16 13:48 Dose: 250 mls/hr Ceftriaxone Sodium (Rocephin 1gm Ivpb (Pre-Docked)) 50 mls @ 100 mls/hr IVPB DAILY [facility] Last Admin: 08/24/16 11:36 Dose: 100 mls/hr Sodium Chloride (Normal Saline -) 1,000 mls @ 50 mls/hr IV ASDIR [facility] Last Admin: 08/25/16 06:45 Dose: 50 mls/hr Lorazepam (Ativan Injection -) 0.5 mg IVPUSH HS PRN PRN Reason: ANXIETY Methylprednisolone Sodium Succinate (Solu-Medrol -) 40 mg IVPB Q8H-IV [facility] Last Admin: 08/25/16 10:31 Dose: 40 mg Morphine Sulfate (Morphine Injection -) 2 mg IVPUSH Q4H PRN PRN Reason: PAIN Nicotine (Nicoderm Patch -) 21 mg TD DAILY [facility] Last Admin: 08/25/16 10:30 Dose: 21 mg - Objective Vital Signs: Vital Signs Temperature 97.4 F L 08/25/16 10:00 Pulse Rate 108 H 08/25/16 10:00 Respiratory Rate 22 08/25/16 10:00 Blood Pressure 99/62 08/25/16 10:00 O2 Sat by Pulse Oximetry (%) 96 08/25/16 00:52 Constitutional: Yes: Calm Eyes: Yes: Conjunctiva Clear HENT: Yes: Atraumatic Cardiovascular: Yes: S1, S2 Respiratory: Yes: On Venti-Mask Gastrointestinal: Yes: Soft Genitourinary: Yes: Underwood Present Musculoskeletal: Yes: Muscle Weakness Edema: No Neurological: Yes: Oriented Psychiatric: Yes: Oriented Labs: CBC, BMP 08/25/16 10:26 08/25/16 08:10 INR, PTT INR 1.22 (0.82-1.09) H 08/22/16 05:20 Problem List - Problems (1) Urinary retention Code(s): R33.9 - RETENTION OF URINE, UNSPECIFIED (2) Liver cirrhosis Code(s): K74.60 - UNSPECIFIED CIRRHOSIS OF LIVER (3) CKD (chronic kidney disease) Code(s): N18.9 - CHRONIC KIDNEY DISEASE, UNSPECIFIED Assessment/Plan Current Medications Generic Name Dose Route Start Last Admin Trade Name Freq PRN Reason Stop Dose Admin Albuterol Sulfate 1 amp 08/22/16 19:48 Ventolin 0.083% Nebulizer Soln - NEB Q4H PRN SHORT OF BREATH/WHEEZING Albuterol/Ipratropium 1 amp 08/23/16 00:00 08/25/16 06:49 Duoneb - NEB 1 amp QIDR [facility] Administration Budesonide/Formoterol Fumarate 2 puff 08/25/16 10:00 Symbicort 80/4.5mcg - IH BID [facility] Diphenhydramine HCl 25 mg 08/22/16 22:00 Benadryl Injection - IVPB HS PRN INSOMNIA Azithromycin 250 mls @ 250 mls/hr 08/23/16 10:00 08/24/16 13:48 Zithromax 500mg Ivpb (Pre-Docked) IVPB 250 mls/hr DAILY [facility] Administration Ceftriaxone Sodium 50 mls @ 100 mls/hr 08/23/16 10:00 08/24/16 11:36 Rocephin 1gm Ivpb (Pre-Docked) IVPB 100 mls/hr DAILY [facility] Administration Sodium Chloride 1,000 mls @ 50 mls/hr 08/23/16 14:36 08/25/16 06:45 Normal Saline - IV 50 mls/hr ASDIR [facility] Administration Lorazepam 0.5 mg 08/25/16 11:49 Ativan Injection - IVPUSH HS PRN ANXIETY Methylprednisolone Sodium Succinate 40 mg 08/23/16 12:45 08/25/16 10:31 Solu-Medrol - IVPB 40 mg Q8H-IV [facility] Administration Morphine Sulfate 2 mg 08/25/16 11:50 Morphine Injection - IVPUSH Q4H PRN PAIN Nicotine 21 mg 08/23/16 10:00 08/25/16 10:30 Nicoderm Patch - TD 21 mg DAILY [facility] Administration Laboratory Tests 08/21/16 08:20 Serum Total Protein 6.1 Albumin 2.1 L Globulin 4.0 H Albumin/Globulin Ratio 0.5 L Oxpvm-4-Xredjhimd 0.4 Inzcy-3-Lijpndick 0.6 Beta Globulins 0.9 Gamma Globulins 2.0 H Impression 1. CKD with unclear baseline creatinine 2. liver cirrhosis 3. COPD 4. hx of etoh abuse 5. ascites 6. dysuria 7. OLIVER 8. hypernatremia Plan - renal function is improving - change fluids to d5w - repeat labs in am - monitor underwood output - keep underwood in place for now - urology follow up - prognosis is poor Dr Ren
[2016-08-25] MEDS ORDERED: DEXTROSE 5%-WATER - 1,000 ML IV SCH (12:00)
[2016-08-25] MEDS: CEFTRIAXONE 50 ML IVPB SCH (12:09)
--- NOTE | 2016-08-25 12:41 | PN ---
Progress Note (short form) - Note Progress Note: PULMONARY More alert, awake today but remains hypoxic. Saturating only 81% on nasal cannula. +cough mostly nonproductive. Last Vital Signs Temp Pulse Resp BP Pulse Ox 97.4 F L 108 H 22 99/62 96 08/25/16 10:00 08/25/16 10:00 08/25/16 10:00 08/25/16 10:00 08/25/16 00:52 Gen: cachectic, more alert Heart: RRR Lung: less rhonchi Abd: soft, nontender Ext: no edema CBC, BMP 08/25/16 10:26 08/25/16 08:10 Active Medications Albuterol Sulfate (Ventolin 0.083% Nebulizer Soln -) 1 amp NEB Q4H PRN PRN Reason: SHORT OF BREATH/WHEEZING Albuterol/Ipratropium (Duoneb -) 1 amp NEB QIDR [facility] Last Admin: 08/25/16 06:49 Dose: 1 amp Budesonide/Formoterol Fumarate (Symbicort 80/4.5mcg -) 2 puff IH BID [facility] Diphenhydramine HCl (Benadryl Injection -) 25 mg IVPB HS PRN PRN Reason: INSOMNIA Azithromycin (Zithromax 500mg Ivpb (Pre-Docked)) 250 mls @ 250 mls/hr IVPB DAILY [facility] Last Admin: 08/24/16 13:48 Dose: 250 mls/hr Ceftriaxone Sodium (Rocephin 1gm Ivpb (Pre-Docked)) 50 mls @ 100 mls/hr IVPB DAILY [facility] Last Admin: 08/25/16 12:09 Dose: 100 mls/hr Dextrose (D5w -) 1,000 mls @ 40 mls/hr IV ASDIR [facility] Lorazepam (Ativan Injection -) 0.5 mg IVPUSH HS PRN PRN Reason: ANXIETY Methylprednisolone Sodium Succinate (Solu-Medrol -) 40 mg IVPB Q8H-IV [facility] Last Admin: 08/25/16 10:31 Dose: 40 mg Morphine Sulfate (Morphine Injection -) 2 mg IVPUSH Q4H PRN PRN Reason: PAIN Nicotine (Nicoderm Patch -) 21 mg TD DAILY [facility] Last Admin: 08/25/16 10:30 Dose: 21 mg A/P Acute Hypoxic Respiratory Failure Liver Cirrhosis Ascites s/p Large Volume Paracentesis ?Acute on Chronic Renal Failure Atonic Bladder UTI Alcohol Abuse COPD Atelectasis - continue antibiotics - taper FiO2 to keep SPo2 >90% - inhaled bronchodilators - will decrease medrol to q12h - PO as tolerated - aspiration precautions - DVT prophylaxis
[2016-08-25] MEDS: DEXTROSE 5%-WATER - 1,000 ML IV SCH (12:47)
[2016-08-25] MEDS: BUDESONIDE/FORMETEROL FUMARATE 80/4.5 mcg INHALER IH SCH ×2 (13:26→21:34)
[2016-08-25] MEDS: AZITHROMYCIN IVPB 250 ML IVPB SCH (13:28)
--- NOTE | 2016-08-25 15:37 | PN ---
Progress Note (short form) - Note Progress Note: Subjective: The patient was seen and examined at the bedside, he reports he is not sleeping well at night Ativan added qhs Current Medications Generic Name Dose Route Start Last Admin Trade Name Freq PRN Reason Stop Dose Admin Albuterol Sulfate 1 amp 08/22/16 19:48 Ventolin 0.083% Nebulizer Soln - NEB Q4H PRN SHORT OF BREATH/WHEEZING Albuterol/Ipratropium 1 amp 08/23/16 00:00 08/25/16 11:15 Duoneb - NEB 1 amp QIDR DEMETRIUS Administration Budesonide/Formoterol Fumarate 2 puff 08/25/16 10:00 08/25/16 13:26 Symbicort 80/4.5mcg - IH 2 pfu BID DEMETRIUS Administration Diphenhydramine HCl 25 mg 08/22/16 22:00 Benadryl Injection - IVPB HS PRN INSOMNIA Azithromycin 250 mls @ 250 mls/hr 08/23/16 10:00 08/25/16 13:28 Zithromax 500mg Ivpb (Pre-Docked) IVPB 250 mls/hr DAILY DEMETRIUS Administration Ceftriaxone Sodium 50 mls @ 100 mls/hr 08/23/16 10:00 08/25/16 12:09 Rocephin 1gm Ivpb (Pre-Docked) IVPB 100 mls/hr DAILY DEMET[facility]US Administration Dextrose 1,000 mls @ 40 mls/hr 08/25/16 12:02 08/25/16 12:47 D5w - IV 40 mls/hr ASDIR DEMETRIUS Administration Lorazepam 0.5 mg 08/25/16 11:49 Ativan Injection - IVPUSH HS PRN ANXIETY Methylprednisolone Sodium Succinate 40 mg 08/25/16 22:00 Solu-Medrol - IVPB BID DEMETRIUS Morphine Sulfate 2 mg 08/25/16 11:50 Morphine Injection - IVPUSH Q4H PRN PAIN Nicotine 21 mg 08/23/16 10:00 08/25/16 10:30 Nicoderm Patch - TD 21 mg DAILY DEMETRIUS Administration Objective: Vital Signs Period Temp Pulse Resp BP Sys/Rai Pulse Ox Last 24 Hr 97.3 F-98 F 18-108 18-22 99-128/59-75 94-99 Physical Exam: General: NAD, A&Ox3, cachectic, temporal wasting HEENT: 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 Normoactive bowel sounds Ext: Thin, 2+ DP/PT bilaterally Neuro: Patient refused CBCD WBC 6.7 K/mm3 (4.0-10.0) D 08/25/16 10:26 RBC 3.07 M/mm3 (4.00-5.60) L 08/25/16 10:26 Hgb 9.6 GM/dL (11.7-16.9) L 08/25/16 10:26 Hct 28.9 % (35.4-49) L 08/25/16 10:26 MCV 94.1 fl (80-96) 08/25/16 10:26 MCHC 33.2 g/dl (32.0-35.9) 08/25/16 10:26 RDW 17.4 % (11.9-15.9) H 08/25/16 10:26 Plt Count 131 K/MM3 (134-434) L 08/25/16 10:26 MPV 10.7 fl (7.5-11.1) 08/25/16 10:26 CMP Sodium 148 mmol/L (136-145) H 08/25/16 08:10 Potassium 5.0 mmol/L (3.5-5.1) D 08/25/16 08:10 Chloride 115 mmol/L (98-107) H 08/25/16 08:10 Carbon Dioxide 24 mmol/L (21-32) 08/25/16 08:10 Anion Gap 9 (8-16) 08/25/16 08:10 BUN 59 mg/dL (7-18) H 08/25/16 08:10 Creatinine 1.5 mg/dL (0.7-1.3) H 08/25/16 08:10 Creat Clearance w eGFR 46.13 (>60) 08/25/16 08:10 Random Glucose 137 mg/dL (74-106) H 08/25/16 08:10 Calcium 9.0 mg/dL (8.5-10.1) 08/25/16 08:10 Total Bilirubin 0.8 mg/dL (0.2-1.0) D 08/25/16 08:10 AST 49 U/L (15-37) H D 08/25/16 08:10 ALT 21 U/L (12-78) D 08/25/16 08:10 Alkaline Phosphatase 264 U/L (45-117) H 08/25/16 08:10 Total Protein 6.2 g/dl (6.4-8.2) L 08/25/16 08:10 Albumin 2.3 g/dl (3.4-5.0) L 08/25/16 08:10 CARDIAC ENZYMES Creatine Kinase 27 IU/L (39-308) L 08/20/16 01:40 Troponin I 0.02 ng/ml (0.00-0.05) 08/20/16 01:40 Microbiology 08/21/16 19:40 Blood - Peripheral Venous Blood Culture - Preliminary NO GROWTH OBTAINED AFTER 72 HOURS, INCUBATION TO CONTINUE FOR 2 DAYS. 08/21/16 19:30 Blood - Peripheral Venous Blood Culture - Preliminary NO GROWTH OBTAINED AFTER 72 HOURS, INCUBATION TO CONTINUE FOR 2 DAYS. 08/20/16 16:30 Urine - Urine, Via Cystoscope Urine Culture - Final Escherichia Coli 08/20/16 13:25 Peritoneal Fluid AFB Smear Concentration - Final 08/20/16 13:25 Peritoneal Fluid Mycobacterial Culture - Preliminary 08/20/16 13:25 Peritoneal Fluid Gram Stain - Final 08/20/16 13:25 Peritoneal Fluid Body Fluid Culture - Final NO GROWTH OF AEROBIC ORGANISMS AFTER 48 HOURS INCUBATION 08/20/16 13:25 Peritoneal Fluid Anaerobic Culture - Final NO ANAEROBES WERE ISOLATED 08/20/16 13:25 Peritoneal Fluid KETAN Preparation - Preliminary 08/20/16 13:25 Peritoneal Fluid Fungal Culture - Preliminary Assessment: This is a 70 year old male with PMHx of liver cirrhosis with ascites , polystubstance abuse, current ETOH abuse, COPD, current everyday smoker, and atonic bladder who was admitted for urinary retention. Found to have end stage cirrhotic liver disease with ascites, acute renal failure, and hypoxic respiratory failure. Plan: 1) Pulmonary: Acute hypoxic respiratory failure 2/2 pneumonia vs. COPD exacerbation - On ventimask, nasal cannula while eating - Continue steroids, taper per pulm - Continue scheduled duonebs - Continue Advair - Appreciate pulmonary consult 2) ID: Severe sepsis 2/2 pneumonia vs. E.coli uti - As evidence by hypothermia, tachycardia, and lactic acidosis - Chest X-ray with left lung base consolidation - Continue Ceftriaxone (08/20) - Discontinue Azithromycin (08/20-08/25) E.coli UTI- baldwin sensitive - Continue Ceftriaxone 3) : Atonic bladder, acute urinary retention - S/p urethral dilation and underwood placement on 08/20 - Appreciate urology consult OLIVER multifactorial - 2/2 severe volume depletion, obstruction, large volume paracentesis - Cr has improved 3.3->2.3->1.7->1.5 - Continue IV fluids and monitor urine output 4) GI: Liver cirrhosis, ascites - S/p 7L drainage from paracentesis with albumin replacement 5) Psych: Polysubstance abuse, alcohol abuse - No current evidence of withdrawal 6) F/E/N: - Severe malnutrition as evidence by BMI 16, temporal wasting, decrease in po intake, pressure ulcers - Soft diet - Monitor electrolytes 7) Prophylaxis: - SCDs bilaterally 8) Dispo: - Awaiting placement at [place] CODE STATUS: DNR/DNI Visit type - Emergency Visit Emergency Visit: Yes ED Registration Date: 08/20/16 Care time: The patient presented to the Emergency Department on the above date and was hospitalized for further evaluation of their emergent condition. - New Patient This patient is new to me today: No - Critical Care Critical Care patient: No
[2016-08-25 17:33] LABS: HYPOCHROMIA 1+; PLATELET COMMENT2 NO CLOTTING DETECTED; PLATELET COMMENT3 FEW LARGE PLTS; PLATELET ESTIMATE SLT DECREASED (NORMAL); SMUDGE CELLS FEW
[2016-08-25 17:34] LABS: ANISOCYTOSIS 1+
--- NOTE | 2016-08-26 03:07 | HOSP ---
Subjective - Review of Symptoms Events since last encounter: Called to bedside for slurred speech with onset at 2230. Musculoskeletal: Yes: No Symptoms Neurological: Yes: Change in speech, Other (visual hallucinations of "the room was getting wrecked by someone") Physical Examination Vital Signs: Vital Signs Temperature 98.2 F 08/25/16 22:00 Pulse Rate 102 H 08/25/16 22:00 Respiratory Rate 18 08/25/16 22:00 Blood Pressure 114/69 08/25/16 22:00 O2 Sat by Pulse Oximetry (%) 96 08/26/16 02:07 Constitutional: Yes: Cachectic Eyes: Yes: WNL HENT: Yes: Other (temporal wasting) Neck: Yes: Supple, Trachea Midline Respiratory: Yes: On BiPap, Rhonchi (all lopez) Neurological: Yes: Alert, Oriented, Cran Nerves II-XII Intact, Dysarthria, Other (NIHSS-1 for mild dysarthria). No: Facial Droop, Loss of Sensation, Numbness, Tingling, Weakness ...Motor Strength: WNL Labs: CBC, BMP 08/25/16 10:26 08/25/16 08:10 Hospitalist Encounter Assessment: Patient with slurred speech starting approximately 1 hour after administration of Ativan. Slurred speech accompanied by visual hallucinations of "the room being wrecked by someone." No focal deficits upon exam. Likely adverse reaction to Ativan. Patient is AA&Ox3 and is aware of dysarthria and hallucinations. Stat BGM- 122. Plan: Hold ativan. Decrease stimulation.
[2016-08-26] MEDS: morphine CARPU-JECT 2 MG/1 ML DISP.SYRIN IVPUSH PRN (06:14)
[2016-08-26] MEDS: ALBUTEROL SO4 2.5/IPRATROPIUM 0.5 INH SOL 3 ML VIAL.NEB. NEB SCH ×3 (06:55→18:43)
[2016-08-26 09:25] LABS: ALBUMIN 2.1 g/dl (3.4-5.0); ALK PHOS 223 U/L (45-117); ANION GAP 9 (8-16); BILIRUBIN,TOTAL 0.6 mg/dL (0.2-1.0); CALCIUM 8.7 mg/dL (8.5-10.1); CO2 23 mmol/L (21-32); CREATININE 1.1 mg/dL (0.7-1.3); GLUCOSE,RANDOM 109 mg/dL (74-106); SGOT/AST 47 U/L (15-37); SGPT/ALT 28 U/L (12-78)
--- NOTE | 2016-08-26 09:27 | PN ---
Progress Note (short form) - Note Progress Note: Subjective: The patient was seen and examined at the bedside, he reportedly had hallucinations and slurred speech after receiving ativan last night. He states he slept well and would like to have ativan again tonight. Will decrease the dose Current Medications Generic Name Dose Route Start Last Admin Trade Name Freq PRN Reason Stop Dose Admin Albuterol Sulfate 1 amp 08/22/16 19:48 Ventolin 0.083% Nebulizer Soln - NEB Q4H PRN SHORT OF BREATH/WHEEZING Albuterol/Ipratropium 1 amp 08/23/16 00:00 08/26/16 06:55 Duoneb - NEB 1 amp QIDR DEMETRIUS Administration Budesonide/Formoterol Fumarate 2 puff 08/25/16 10:00 08/25/16 21:34 Symbicort 80/4.5mcg - IH 2 puff BID DEMETRIUS Administration Diphenhydramine HCl 25 mg 08/22/16 22:00 Benadryl Injection - IVPB HS PRN INSOMNIA Ceftriaxone Sodium 50 mls @ 100 mls/hr 08/23/16 10:00 08/25/16 12:09 Rocephin 1gm Ivpb (Pre-Docked) IVPB 100 mls/hr DAILY DEMETRIUS Administration Dextrose 1,000 mls @ 40 mls/hr 08/25/16 12:02 08/25/16 12:47 D5w - IV 40 mls/hr ASDIR DEMETRIUS Administration Methylprednisolone Sodium Succinate 40 mg 08/25/16 22:00 08/25/16 21:34 Solu-Medrol - IVPB 40 mg BID DEMETRIUS Administration Morphine Sulfate 2 mg 08/25/16 11:50 08/26/16 06:14 Morphine Injection - IVPUSH 2 mg Q4H PRN Administration PAIN Nicotine 21 mg 08/23/16 10:00 08/25/16 10:30 Nicoderm Patch - TD 21 mg DAILY DEMETRIUS Administration Objective: Vital Signs Period Temp Pulse Resp BP Sys/Rai Pulse Ox Last 24 Hr 97.3 F-98.2 F 101-108 18-22 99-120/61-74 92-98 Physical Exam: General: NAD, A&Ox3, cachectic, temporal wasting HEENT: 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 Normoactive bowel sounds Ext: Thin, 2+ DP/PT bilaterally Neuro: Patient refused CBCD WBC 6.7 K/mm3 (4.0-10.0) D 08/25/16 10:26 RBC 3.07 M/mm3 (4.00-5.60) L 08/25/16 10:26 Hgb 9.6 GM/dL (11.7-16.9) L 08/25/16 10:26 Hct 28.9 % (35.4-49) L 08/25/16 10:26 MCV 94.1 fl (80-96) 08/25/16 10:26 MCHC 33.2 g/dl (32.0-35.9) 08/25/16 10:26 RDW 17.4 % (11.9-15.9) H 08/25/16 10:26 Plt Count 131 K/MM3 (134-434) L 08/25/16 10:26 MPV 10.7 fl (7.5-11.1) 08/25/16 10:26 CMP Sodium 146 mmol/L (136-145) H 08/26/16 07:15 Potassium 4.5 mmol/L (3.5-5.1) 08/26/16 07:15 Chloride 114 mmol/L (98-107) H 08/26/16 07:15 Carbon Dioxide 23 mmol/L (21-32) 08/26/16 07:15 Anion Gap 9 (8-16) 08/26/16 07:15 BUN 54 mg/dL (7-18) H 08/26/16 07:15 Creatinine 1.1 mg/dL (0.7-1.3) D 08/26/16 07:15 Creat Clearance w eGFR > 60 (>60) 08/26/16 07:15 Random Glucose 109 mg/dL (74-106) H D 08/26/16 07:15 Calcium 8.7 mg/dL (8.5-10.1) 08/26/16 07:15 Total Bilirubin 0.6 mg/dL (0.2-1.0) D 08/26/16 07:15 AST 47 U/L (15-37) H 08/26/16 07:15 ALT 28 U/L (12-78) D 08/26/16 07:15 Alkaline Phosphatase 223 U/L (45-117) H 08/26/16 07:15 Total Protein 6.0 g/dl (6.4-8.2) L 08/26/16 07:15 Albumin 2.1 g/dl (3.4-5.0) L 08/26/16 07:15 CARDIAC ENZYMES Creatine Kinase 27 IU/L (39-308) L 08/20/16 01:40 Troponin I 0.02 ng/ml (0.00-0.05) 08/20/16 01:40 Microbiology 08/21/16 19:40 Blood - Peripheral Venous Blood Culture - Preliminary NO GROWTH OBTAINED AFTER 96 HOURS, INCUBATION TO CONTINUE FOR 1 DAYS. 08/21/16 19:30 Blood - Peripheral Venous Blood Culture - Preliminary NO GROWTH OBTAINED AFTER 96 HOURS, INCUBATION TO CONTINUE FOR 1 DAYS. 08/20/16 16:30 Urine - Urine, Via Cystoscope Urine Culture - Final Escherichia Coli 08/20/16 13:25 Peritoneal Fluid AFB Smear Concentration - Final 08/20/16 13:25 Peritoneal Fluid Mycobacterial Culture - Preliminary 08/20/16 13:25 Peritoneal Fluid Gram Stain - Final 08/20/16 13:25 Peritoneal Fluid Body Fluid Culture - Final NO GROWTH OF AEROBIC ORGANISMS AFTER 48 HOURS INCUBATION 08/20/16 13:25 Peritoneal Fluid Anaerobic Culture - Final NO ANAEROBES WERE ISOLATED 08/20/16 13:25 Peritoneal Fluid KETAN Preparation - Preliminary 08/20/16 13:25 Peritoneal Fluid Fungal Culture - Preliminary Assessment: This is a 70 year old male with PMHx of liver cirrhosis with ascites , polystubstance abuse, current ETOH abuse, COPD, current everyday smoker, and atonic bladder who was admitted for urinary retention. Found to have end stage cirrhotic liver disease with ascites, acute renal failure, and hypoxic respiratory failure. Plan: 1) Pulmonary: Acute hypoxic respiratory failure 2/2 pneumonia vs. COPD exacerbation - On ventimask, nasal cannula while eating - Continue steroids, taper per pulm - Continue scheduled duonebs - Continue Advair - Appreciate pulmonary consult 2) ID: Severe sepsis 2/2 pneumonia vs. E.coli uti - As evidence by hypothermia, tachycardia, and lactic acidosis - Chest X-ray with left lung base consolidation - Continue Ceftriaxone (08/20) - Discontinue Azithromycin (08/20-08/25) E.coli UTI- baldwin sensitive - Continue Ceftriaxone 3) : Atonic bladder, acute urinary retention - S/p urethral dilation and underwood placement on 08/20 - Appreciate urology consult OLIVER multifactorial - Resolved - Cr has improved 3.3->2.3->1.7->1.5->1.1 - Continue IV fluids and monitor urine output 4) GI: Liver cirrhosis, ascites - S/p 7L drainage from paracentesis with albumin replacement 5) Psych: Polysubstance abuse, alcohol abuse - No current evidence of withdrawal 6) F/E/N: - Severe malnutrition as evidence by BMI 16, temporal wasting, decrease in po intake, pressure ulcers - Soft diet - Monitor electrolytes 7) Prophylaxis: - SCDs bilaterally 8) Dispo: - Awaiting placement at [facility] CODE STATUS: DNR/DNI Visit type - Emergency Visit Emergency Visit: Yes ED Registration Date: 08/20/16 Care time: The patient presented to the Emergency Department on the above date and was hospitalized for further evaluation of their emergent condition. - New Patient This patient is new to me today: No - Critical Care Critical Care patient: No
[2016-08-26] MEDS: CEFTRIAXONE 50 ML IVPB SCH ×2 (10:13→12:09)
[2016-08-26] MEDS: NICOTINE 21 MG/24 HOURS TOPICAL PATCH TD SCH (10:34)
[2016-08-26] MEDS: methylPREDNISolone NA SUCC 40 MG/1 ML VIAL IVPB SCH ×2 (10:35→21:06)
[2016-08-26] MEDS: BUDESONIDE/FORMETEROL FUMARATE 80/4.5 mcg INHALER IH SCH ×2 (10:35→21:06)
--- NOTE | 2016-08-26 12:00 | PN ---
Progress Note, Physician Chief Complaint: Renal f/u Pt in no distress with 100% NRM in place Azotemia better with IVF in progress Appetite fair Denies any diarrhea - Current Medication List Current Medications: Active Medications Albuterol Sulfate (Ventolin 0.083% Nebulizer Soln -) 1 amp NEB Q4H PRN PRN Reason: SHORT OF BREATH/WHEEZING Albuterol/Ipratropium (Duoneb -) 1 amp NEB QIDR [facility] Last Admin: 08/26/16 06:55 Dose: 1 amp Budesonide/Formoterol Fumarate (Symbicort 80/4.5mcg -) 2 puff IH BID [facility] Last Admin: 08/26/16 10:35 Dose: 2 puff Diphenhydramine HCl (Benadryl Injection -) 25 mg IVPB HS PRN PRN Reason: INSOMNIA Ceftriaxone Sodium (Rocephin 1gm Ivpb (Pre-Docked)) 50 mls @ 100 mls/hr IVPB DAILY [facility] Last Admin: 08/25/16 12:09 Dose: 100 mls/hr Dextrose (D5w -) 1,000 mls @ 40 mls/hr IV ASDIR [facility] Last Admin: 08/25/16 12:47 Dose: 40 mls/hr Lorazepam (Ativan Injection -) 0.25 mg IVPUSH HS PRN PRN Reason: ANXIETY Methylprednisolone Sodium Succinate (Solu-Medrol -) 40 mg IVPB BID [facility] Last Admin: 08/26/16 10:35 Dose: 40 mg Morphine Sulfate (Morphine Injection -) 2 mg IVPUSH Q4H PRN PRN Reason: PAIN Last Admin: 08/26/16 06:14 Dose: 2 mg Nicotine (Nicoderm Patch -) 21 mg TD DAILY [facility] Last Admin: 08/26/16 10:34 Dose: 21 mg - Objective Vital Signs: Vital Signs Temperature 97.2 F L 08/26/16 10:00 Pulse Rate 96 H 08/26/16 10:00 Respiratory Rate 18 08/26/16 10:00 Blood Pressure 117/67 08/26/16 10:00 O2 Sat by Pulse Oximetry (%) 95 08/26/16 07:02 Constitutional: Yes: No Distress Cardiovascular: Yes: S1, S2 Respiratory: Yes: On Venti-Mask Gastrointestinal: Yes: Soft. No: Tenderness, Rebound Edema: No Labs: CBC, BMP 08/25/16 10:26 08/26/16 07:15 INR, PTT INR 1.22 (0.82-1.09) H 08/22/16 05:20 Assessment/Plan Impression 1. Acute on CKD improving on IVF but still with some hypernatremia 2. liver cirrhosis 3. COPD 4. hx of etoh abuse 5. ascites 6. dysuria Plan Continue with D5W Repeat labs in am Urology follow up Dr Forbes
[2016-08-26] MEDS: DEXTROSE 5%-WATER - 1,000 ML IV SCH (12:09)
--- NOTE | 2016-08-26 12:18 | PN ---
Progress Note (short form) - Note Progress Note: PULMONARY More alert, awake today but remains hypoxic, placed back on partial rebreather. +cough mostly nonproductive. Last Vital Signs Temp Pulse Resp BP Pulse Ox 97.2 F L 96 H 18 117/67 95 08/26/16 10:00 08/26/16 10:00 08/26/16 10:00 08/26/16 10:00 08/26/16 07:02 Gen: cachectic, more alert Heart: RRR Lung: less rhonchi Abd: soft, nontender Ext: no edema CBC, BMP 08/25/16 10:26 08/26/16 07:15 Active Medications Albuterol Sulfate (Ventolin 0.083% Nebulizer Soln -) 1 amp NEB Q4H PRN PRN Reason: SHORT OF BREATH/WHEEZING Albuterol/Ipratropium (Duoneb -) 1 amp NEB QIDR [facility] Last Admin: 08/26/16 06:55 Dose: 1 amp Budesonide/Formoterol Fumarate (Symbicort 80/4.5mcg -) 2 puff IH BID [facility] Last Admin: 08/26/16 10:35 Dose: 2 puff Diphenhydramine HCl (Benadryl Injection -) 25 mg IVPB HS PRN PRN Reason: INSOMNIA Ceftriaxone Sodium (Rocephin 1gm Ivpb (Pre-Docked)) 50 mls @ 100 mls/hr IVPB DAILY [facility] Last Admin: 08/26/16 12:09 Dose: 100 mls/hr Dextrose (D5w -) 1,000 mls @ 40 mls/hr IV ASDIR [facility] Last Admin: 08/26/16 12:09 Dose: 40 mls/hr Lorazepam (Ativan Injection -) 0.25 mg IVPUSH HS PRN PRN Reason: ANXIETY Methylprednisolone Sodium Succinate (Solu-Medrol -) 40 mg IVPB BID [facility] Last Admin: 08/26/16 10:35 Dose: 40 mg Morphine Sulfate (Morphine Injection -) 2 mg IVPUSH Q4H PRN PRN Reason: PAIN Last Admin: 08/26/16 06:14 Dose: 2 mg Nicotine (Nicoderm Patch -) 21 mg TD DAILY [facility] Last Admin: 08/26/16 10:34 Dose: 21 mg A/P Acute Hypoxic Respiratory Failure Liver Cirrhosis Ascites s/p Large Volume Paracentesis ?Acute on Chronic Renal Failure Atonic Bladder UTI Alcohol Abuse COPD Atelectasis - continue antibiotics - taper FiO2 to keep SPo2 >90% - inhaled bronchodilators - continue medrol at q12h - PO as tolerated - aspiration precautions - DVT prophylaxis
[2016-08-26] MEDS: POLYETHYLENE GLYCOL 3350 119 GM BTL PO SCH (14:29)
[2016-08-26] MEDS ORDERED: LORAZEPAM CARPU-JECT 2 MG/ML DISP.SYRIN IVPUSH PRN (22:00)
[2016-08-27] MEDS: morphine CARPU-JECT 2 MG/1 ML DISP.SYRIN IVPUSH PRN (01:00)
[2016-08-27 08:51] LABS: MCH 30.9 pg (25.7-33.7); MCHC 32.6 g/dl (32.0-35.9); MEAN CELL VOLUME 94.8 fl (80-96); MEAN PLT VOLUME 10.4 fl (7.5-11.1); PLATELET COUNT 136 K/MM3 (134-434); RDW 17.7 % (11.9-15.9); WHITE BLOOD COUNT 10.6 K/mm3 (4.0-10.0)
[2016-08-27 09:11] LABS: ALBUMIN 2.1 g/dl (3.4-5.0); ALK PHOS 204 U/L (45-117); ANION GAP 7 (8-16); BILIRUBIN,TOTAL 0.6 mg/dL (0.2-1.0); CALCIUM 8.9 mg/dL (8.5-10.1); CO2 27 mmol/L (21-32); COCKROFT - GAULT 49.28; GLUCOSE,RANDOM 139 mg/dL (74-106); SGOT/AST 37 U/L (15-37); SGPT/ALT 30 U/L (12-78)
[2016-08-27] MEDS: NICOTINE 21 MG/24 HOURS TOPICAL PATCH TD SCH (09:44)
[2016-08-27] MEDS: POLYETHYLENE GLYCOL 3350 119 GM BTL PO SCH (09:45)
[2016-08-27] MEDS: methylPREDNISolone NA SUCC 40 MG/1 ML VIAL IVPB SCH (09:45)
[2016-08-27] MEDS: BUDESONIDE/FORMETEROL FUMARATE 80/4.5 mcg INHALER IH SCH (10:19)
[2016-08-27] MEDS: CEFTRIAXONE 50 ML IVPB SCH (10:19)
[2016-08-27] MEDS: ALBUTEROL SO4 2.5/IPRATROPIUM 0.5 INH SOL 3 ML VIAL.NEB. NEB SCH ×3 (11:10→23:13)
[2016-08-27 11:29] LABS: METAMYELOCYTE 2 % (0-2); PLATELET ESTIMATE DECREASED (NORMAL)
--- NOTE | 2016-08-27 12:39 | PN ---
Progress Note, Physician History of Present Illness: Pt seen and examined at bedside. He is awake and alert. - Current Medication List Current Medications: Active Medications Albuterol Sulfate (Ventolin 0.083% Nebulizer Soln -) 1 amp NEB Q4H PRN PRN Reason: SHORT OF BREATH/WHEEZING Albuterol/Ipratropium (Duoneb -) 1 amp NEB QIDR [facility] Last Admin: 08/26/16 18:43 Dose: 1 amp Diphenhydramine HCl (Benadryl Injection -) 25 mg IVPB HS PRN PRN Reason: INSOMNIA Last Admin: 08/26/16 21:06 Dose: 25 mg Ceftriaxone Sodium (Rocephin 1gm Ivpb (Pre-Docked)) 50 mls @ 100 mls/hr IVPB DAILY [facility] Last Admin: 08/27/16 10:19 Dose: 100 mls/hr Lorazepam (Ativan Injection -) 0.25 mg IVPUSH HS PRN PRN Reason: ANXIETY Morphine Sulfate (Morphine Injection -) 2 mg IVPUSH Q4H PRN PRN Reason: PAIN Last Admin: 08/27/16 01:00 Dose: 2 mg Nicotine (Nicoderm Patch -) 21 mg TD DAILY [facility] Last Admin: 08/27/16 09:44 Dose: 21 mg - Objective Vital Signs: Vital Signs Temperature 97.0 F L 08/27/16 09:48 Pulse Rate 108 H 08/27/16 09:48 Respiratory Rate 18 08/27/16 09:48 Blood Pressure 97/68 08/27/16 09:48 O2 Sat by Pulse Oximetry (%) 90 L 08/27/16 09:00 Constitutional: Yes: Calm Eyes: Yes: Conjunctiva Clear HENT: Yes: Atraumatic Cardiovascular: Yes: S1, S2 Respiratory: Yes: On Venti-Mask Gastrointestinal: Yes: Soft Genitourinary: Yes: Eugene Present Musculoskeletal: Yes: Muscle Weakness Edema: No Integumentary: Yes: Other (lesion on chest wall) Neurological: Yes: Oriented Psychiatric: Yes: Oriented Labs: CBC, BMP 08/27/16 08:20 08/27/16 08:20 INR, PTT INR 1.22 (0.82-1.09) H 08/22/16 05:20 Problem List - Problems (1) Urinary retention Code(s): R33.9 - RETENTION OF URINE, UNSPECIFIED (2) Liver cirrhosis Code(s): K74.60 - UNSPECIFIED CIRRHOSIS OF LIVER (3) CKD (chronic kidney disease) Code(s): N18.9 - CHRONIC KIDNEY DISEASE, UNSPECIFIED Assessment/Plan Current Medications Generic Name Dose Route Start Last Admin Trade Name Freq PRN Reason Stop Dose Admin Albuterol Sulfate 1 amp 08/22/16 19:48 Ventolin 0.083% Nebulizer Soln - NEB Q4H PRN SHORT OF BREATH/WHEEZING Albuterol/Ipratropium 1 amp 08/23/16 00:00 08/26/16 18:43 Duoneb - NEB 1 amp QIDR DEMETRIUS Administration Diphenhydramine HCl 25 mg 08/22/16 22:00 08/26/16 21:06 Benadryl Injection - IVPB 25 mg HS PRN Administration INSOMNIA Ceftriaxone Sodium 50 mls @ 100 mls/hr 08/23/16 10:00 08/27/16 10:19 Rocephin 1gm Ivpb (Pre-Docked) IVPB 100 mls/hr DAILY DEMET[facility]US Administration Lorazepam 0.25 mg 08/26/16 22:00 Ativan Injection - IVPUSH HS PRN ANXIETY Morphine Sulfate 2 mg 08/25/16 11:50 08/27/16 01:00 Morphine Injection - IVPUSH 2 mg Q4H PRN Administration PAIN Nicotine 21 mg 08/23/16 10:00 08/27/16 09:44 Nicoderm Patch - TD 21 mg DAILY DEMETRIUS Administration Impression 1. CKD with unclear baseline creatinine 2. liver cirrhosis 3. COPD 4. hx of etoh abuse 5. ascites 6. dysuria 7. OLIVER 8. hypernatremia Plan - sodium is improving - renal function is improving - encourage PO intake - monitor urine output - repeat labs in am - urology follow up - prognosis is poor Dr Ren
--- NOTE | 2016-08-27 13:00 | PN ---
Progress Note (short form) - Note Progress Note: Awake and responsive. Alternatives between NIPPV and non-rebreather. Weak appearing. Intake & Output 08/24/16 08/25/16 08/26/16 08/27/16 23:59 23:59 23:59 23:59 Intake Total 2150 1970 2024 570 Output Total 367 020 9716 300 Balance 1200 1070 975 270 Weight 109 lb 9.6 oz 110 lb 9.6 oz 113 lb 6 oz Last Vital Signs Temp Pulse Resp BP Pulse Ox 97.0 F L 108 H 18 97/68 90 L 08/27/16 09:48 08/27/16 09:48 08/27/16 09:48 08/27/16 09:48 08/27/16 09:00 Active Medications Albuterol Sulfate (Ventolin 0.083% Nebulizer Soln -) 1 amp NEB Q4H PRN PRN Reason: SHORT OF BREATH/WHEEZING Albuterol/Ipratropium (Duoneb -) 1 amp NEB QIDR [facility] Last Admin: 08/26/16 18:43 Dose: 1 amp Diphenhydramine HCl (Benadryl Injection -) 25 mg IVPB HS PRN PRN Reason: INSOMNIA Last Admin: 08/26/16 21:06 Dose: 25 mg Ceftriaxone Sodium (Rocephin 1gm Ivpb (Pre-Docked)) 50 mls @ 100 mls/hr IVPB DAILY [facility] Last Admin: 08/27/16 10:19 Dose: 100 mls/hr Lorazepam (Ativan Injection -) 0.25 mg IVPUSH HS PRN PRN Reason: ANXIETY Morphine Sulfate (Morphine Injection -) 2 mg IVPUSH Q4H PRN PRN Reason: PAIN Last Admin: 08/27/16 01:00 Dose: 2 mg Nicotine (Nicoderm Patch -) 21 mg TD DAILY [facility] Last Admin: 08/27/16 09:44 Dose: 21 mg Gen: cachectic, awake and alert Heart: RRR Lung: Bilateral rhonchi, no wheezing Abd: soft, nontender Ext: no edema Laboratory Results - last 24 hr 08/27/16 08/27/16 08:20 08:20 WBC 10.6 H D RBC 3.28 L Hgb 10.1 L Hct 31.1 L MCV 94.8 MCHC 32.6 RDW 17.7 H Plt Count 136 MPV 10.4 Neutrophils % 84.0 H Lymphocytes % 10.0 D Monocytes % 2.0 L Band Neutrophils 2.0 Metamyelocytes 2 Differential Comment Manual diff done Platelet Estimate Decreased Sodium 142 Potassium 4.7 Chloride 108 H Carbon Dioxide 27 Anion Gap 7 L BUN 50 H Creatinine 1.0 Creat Clearance w eGFR > 60 Random Glucose 139 H D Calcium 8.9 Total Bilirubin 0.6 AST 37 D ALT 30 Alkaline Phosphatase 204 H Total Protein 6.0 L Albumin 2.1 L A/P Acute Hypoxic Respiratory Failure Liver Cirrhosis Ascites s/p Large Volume Paracentesis ?Acute on Chronic Renal Failure Atonic Bladder UTI Alcohol Abuse COPD Atelectasis - NIPPV alternating with NRBM - inhaled bronchodilators - PO as tolerated - aspiration precautions - DVT prophylaxis Dr Murcia
--- NOTE | 2016-08-27 17:02 | DS ---
Physical Exam: SUBJECTIVE: Patient seen and examined OBJECTIVE: Vital Signs Period Temp Pulse Resp BP Sys/Rai Pulse Ox Last 24 Hr 97.0 F-98.7 F 92-108 18-22 97-119/55-68 90-92 PHYSICAL EXAM GENERAL: The patient is awake, alert, and fully oriented, in no acute distress. HEAD: Normal with no signs of trauma. EYES: PERRL, extraocular movements intact, sclera anicteric, conjunctiva clear. ENT: Ears normal, nares patent, oropharynx clear without exudates, moist mucous membranes. NECK: Trachea midline, full range of motion, supple. LUNGS: Breath sounds equal, clear to auscultation bilaterally, no wheezes, no crackles, no accessory muscle use. HEART: Regular rate and rhythm, S1, S2 without murmur, rub or gallop. ABDOMEN: Soft, nontender, nondistended, normoactive bowel sounds, no guarding, no rebound, no hepatosplenomegaly, no masses. EXTREMITIES: 2+ pulses, warm, well-perfused, no edema. NEUROLOGICAL: Cranial nerves II through XII grossly intact. Normal speech, gait not observed. PSYCH: Normal mood, normal affect. SKIN: Warm, dry, normal turgor, no rashes or lesions noted. LABS Laboratory Results - last 24 hr 08/27/16 08/27/16 08:20 08:20 WBC 10.6 H D RBC 3.28 L Hgb 10.1 L Hct 31.1 L MCV 94.8 MCHC 32.6 RDW 17.7 H Plt Count 136 MPV 10.4 Neutrophils % 84.0 H Lymphocytes % 10.0 D Monocytes % 2.0 L Band Neutrophils 2.0 Metamyelocytes 2 Differential Comment Manual diff done Platelet Estimate Decreased Sodium 142 Potassium 4.7 Chloride 108 H Carbon Dioxide 27 Anion Gap 7 L BUN 50 H Creatinine 1.0 Creat Clearance w eGFR > 60 Random Glucose 139 H D Calcium 8.9 Total Bilirubin 0.6 AST 37 D ALT 30 Alkaline Phosphatase 204 H Total Protein 6.0 L Albumin 2.1 L HOSPITAL COURSE: Date of Admission:08/20/16 Date of Discharge: 08/27/16 Discharge Summary Reason For Visit: ACUTE KIDNEY INJURY WEAKNESS Current Active Problems Acute kidney injury (Acute) Ascites due to alcoholic cirrhosis (Acute) Basal cell carcinoma (Acute) CKD (chronic kidney disease) (Acute) Chronic diarrhea (Acute) Liver cirrhosis (Acute) Metabolic acidosis (Acute) Sepsis syndrome (Acute) Urinary retention (Acute) Weakness (Acute) Condition: Guarded - Instructions Disposition: TRANSFER ACUTE CARE/OTHER HOSP - Home Medications Comprehensive Discharge Medication List: Ambulatory Orders Albuterol 2.5/Ipratropium 0.5 [Duoneb -] 1 amp NEB QIDR amp 08/27/16 Ceftriaxone [Rocephin 1Gm Ivpb (Pre-Docked)] 50 ml IVPB DAILY bag 08/27/16 Diphenhydramine [Benadryl Injection -] 25 mg IVPB HS PRN #0 vial 08/27/16 Lorazepam Injection [Ativan Injection -] 0.25 mg IVPUSH HS PRN #0.25 mg MDD 0.25 08/27/16 Morphine Injection - [Morphine Injection 2 mg/1 mL -] 2 mg IVPUSH Q4H PRN #2 mg MDD 12 08/27/16 Nicotine Patch [Nicoderm Patch -] 21 mg TD DAILY patch 08/27/16 Polyethylene Glycol 3350 [Miralax 119 gm Btl -] 17 gm PO DAILY bottle 08/27/16
[2016-08-27] MEDS ORDERED: MORPHINE SULFATE 10 MG/5 ML CUP PO PRN (21:47)
[2016-08-27] MEDS ORDERED: LORazepam 0.5 MG TABLET PO PRN (21:50)
[2016-08-27] MEDS ORDERED: morphine SULFATE 10 MG/5 ML UNIT-DOSE CUP PO PRN (22:42)
[2016-08-28] MEDS: ALBUTEROL SO4 2.5/IPRATROPIUM 0.5 INH SOL 3 ML VIAL.NEB. NEB SCH ×4 (06:59→23:38)
[2016-08-28 08:17] LABS: CALCIUM 9.6 mg/dL (8.5-10.1); COCKROFT - GAULT 40.95; CREATININE 1.2 mg/dL (0.7-1.3)
[2016-08-28] MEDS ORDERED: LEVOFLOXACIN 500 MG TABLET (FP) PO SCH (10:00)
[2016-08-28] MEDS: NICOTINE 21 MG/24 HOURS TOPICAL PATCH TD SCH (10:42)
[2016-08-28] MEDS ORDERED: SODIUM CHLORIDE 1,000 ML IV STA (13:00)
--- NOTE | 2016-08-28 14:49 | PN ---
Progress Note, Physician History of Present Illness: Pt seen and examined at bedside. He is lethargic. He remains on Bipap. - Current Medication List Current Medications: Active Medications Albuterol Sulfate (Ventolin 0.083% Nebulizer Soln -) 1 amp NEB Q4H PRN PRN Reason: SHORT OF BREATH/WHEEZING Albuterol/Ipratropium (Duoneb -) 1 amp NEB QIDR DEMETRIUS Last Admin: 08/28/16 11:00 Dose: 1 amp Sodium Chloride (Normal Saline -) 1,000 mls @ 125 mls/hr IV ASDIR DEMETRIUS Levofloxacin (Levaquin 500 Mg Premixed Ivpb -) 100 mls @ 100 mls/hr IVPB DAILY DEMET[facility]US Lorazepam (Ativan -) 0.5 mg PO Q8H PRN PRN Reason: ANXIETY Morphine Sulfate (Morphine 10 Mg/5 Ml Liquid) 10 mg PO Q6H PRN PRN Reason: PAIN Last Admin: 08/27/16 23:03 Dose: 10 mg Nicotine (Nicoderm Patch -) 21 mg TD DAILY DEMETRIUS Last Admin: 08/28/16 10:42 Dose: 21 mg - Objective Vital Signs: Vital Signs Temperature 98.7 F 08/28/16 06:00 Pulse Rate 73 08/28/16 12:23 Respiratory Rate 12 08/28/16 12:23 Blood Pressure 56/37 08/28/16 12:23 O2 Sat by Pulse Oximetry (%) 93 L 08/28/16 07:12 Constitutional: Yes: Calm Eyes: Yes: Conjunctiva Clear Cardiovascular: Yes: S1, S2 Respiratory: Yes: On BiPap Gastrointestinal: Yes: Soft Genitourinary: Yes: Incontinence Musculoskeletal: Yes: Muscle Weakness Edema: No Integumentary: Yes: Other (chest wall lesion) Neurological: Yes: Lethargy Labs: CBC, BMP 08/27/16 08:20 08/28/16 06:55 INR, PTT INR 1.22 (0.82-1.09) H 08/22/16 05:20 Problem List - Problems (1) Urinary retention Code(s): R33.9 - RETENTION OF URINE, UNSPECIFIED (2) Liver cirrhosis Code(s): K74.60 - UNSPECIFIED CIRRHOSIS OF LIVER (3) CKD (chronic kidney disease) Code(s): N18.9 - CHRONIC KIDNEY DISEASE, UNSPECIFIED Assessment/Plan Current Medications Generic Name Dose Route Start Last Admin Trade Name Freq PRN Reason Stop Dose Admin Albuterol Sulfate 1 amp 08/22/16 19:48 Ventolin 0.083% Nebulizer Soln - NEB Q4H PRN SHORT OF BREATH/WHEEZING Albuterol/Ipratropium 1 amp 08/23/16 00:00 08/28/16 11:00 Duoneb - NEB 1 amp QIDR DEMETRIUS Administration Sodium Chloride 1,000 mls @ 125 mls/hr 08/28/16 14:00 Normal Saline - IV ASDIR DEMETRIUS Levofloxacin 100 mls @ 100 mls/hr 08/28/16 14:45 Levaquin 500 Mg Premixed Ivpb - IVPB DAILY DEMET[facility]US Lorazepam 0.5 mg 08/27/16 21:50 Ativan - PO Q8H PRN ANXIETY Morphine Sulfate 10 mg 08/27/16 22:42 08/27/16 23:03 Morphine 10 Mg/5 Ml Liquid PO 10 mg Q6H PRN Administration PAIN Nicotine 21 mg 08/23/16 10:00 08/28/16 10:42 Nicoderm Patch - TD 21 mg DAILY DEMETRIUS Administration Impression 1. CKD with unclear baseline creatinine 2. liver cirrhosis 3. COPD 4. hx of etoh abuse 5. ascites 6. dysuria 7. LOIVER 8. hypernatremia Plan - start d5w - pt is clinically doing poorly - avoid sedatives - monitor renal function - possible discharge to [place], spoke to nurse - prognosis is poor Dr Ren
[2016-08-28] MEDS ORDERED: DEXTROSE 5%-WATER - 1,000 ML IV SCH (15:00)
[2016-08-28] MEDS: SODIUM CHLORIDE 1,000 ML IV SCH ×2 (15:10→23:37)
[2016-08-28] MEDS ORDERED: LEVOFLOXACIN 500 MG IVPB 100 ML IVPB ONE (15:30)
--- NOTE | 2016-08-28 16:30 | PN ---
Physical Exam: SUBJECTIVE: Patient seen and examined at bedside. Sitting up eating lunch. Ate some food, Magic Cup which he said he enjoys. Discussed with patient there is a bed available at [facility] in [place], near his brother's home. Expressed reluctance to go, thinks he might be better at [facility]. OBJECTIVE: Vital Signs Period Temp Pulse Resp BP Sys/Rai Pulse Ox Last 24 Hr 97.0 F-98.7 F 62-92 12-20 55-119/31-66 85-95 GENERAL: The patient is A&O x 3. Weak, cachectic. HEAD: Temporal wasting EENT: Dry mucous membranes LUNGS: Diffuse rhonchi HEART: Regular rate and rhythm, S1, S2 without murmur, rub or gallop. ABDOMEN: Soft, nontender, nondistended, no guarding, no rebound; underwood in place EXTREMITIES: 2+ pulses, warm, well-perfused, no edema. Thin bones. No muscle tone. NEUROLOGICAL: Cranial nerves II through XII grossly intact. Normal speech. Active Medications Generic Name Dose Route Trade Name Freq PRN Reason Albuterol Sulfate 1 amp Ventolin 0.083% Nebulizer Soln - NEB Q4H PRN SHORT OF BREATH/WHEEZING Albuterol/Ipratropium 1 amp Duoneb - NEB QIDR DEMETRIUS Sodium Chloride 1,000 mls @ 125 mls/hr Normal Saline - IV ASDIR DEMETRIUS Levofloxacin 100 mls @ 100 mls/hr Levaquin 500 Mg Premixed Ivpb - IVPB ONCE ONE Levofloxacin 50 mls @ 50 mls/hr Levaquin 250 Mg Premixed Ivpb - IVPB DAILY [facility] Nicotine 21 mg Nicoderm Patch - TD DAILY [facility] ASSESSMENT/PLAN: Assessment: This is a 70 year old male with PMHx of liver cirrhosis with ascites , polystubstance abuse, current ETOH abuse, COPD, current everyday smoker, and atonic bladder who was admitted for urinary retention. Found to have end stage cirrhotic liver disease with ascites, acute renal failure, and hypoxic respiratory failure. Acute hypoxic respiratory failure secondary to pneumonia vs. COPD exacerbation --alternates between NIPPV and NRB, satting 85-90% on 80-100% --taper steroids to off --continue duonebs Severe sepsis secondary to pneumonia v. E.coli UTI v. both --sensitivities back, start Levaquin --azithromycin course complete (08/20-08/25) Atonic bladder, acute urinary retention --s/p urethral dilation and underwood placement on 08/20 OLIVER multifactorial, resolved --Cr 1.2 --making good urine Liver cirrhosis, ascites --s/p 7L drainage from paracentesis with albumin replacement Polysubstance abuse, alcohol abuse --no signs of withdrawal 6) F/E/N: - Severe malnutrition as evidence by BMI 16, temporal wasting, decrease in po intake, pressure ulcers - Soft diet - Monitor electrolytes 7) Prophylaxis: - SCDs bilaterally 8) Dispo: - Awaiting placement at [facility] CODE STATUS: DNR/DNI Visit type - Emergency Visit Emergency Visit: Yes ED Registration Date: 08/20/16 Care time: The patient presented to the Emergency Department on the above date and was hospitalized for further evaluation of their emergent condition. - New Patient This patient is new to me today: No - Critical Care Critical Care patient: No
[2016-08-28] MEDS ORDERED: SODIUM CHLORIDE 250 ML IV STA (16:48)
--- NOTE | 2016-08-28 16:58 | PN ---
Physical Exam: SUBJECTIVE: Patient seen and examined. Unresponsive. OBJECTIVE: Vital Signs Period Temp Pulse Resp BP Sys/Rai Pulse Ox Last 24 Hr 97.0 F-98.7 F 62-92 12-20 55-119/31-66 85-95 GENERAL: The patient is not responsive to verbal or physical stimuli. On NIPPV. Cacectic. HEAD: Temporal wasting EENT: Dry mucous membranes LUNGS: Coarse breath sounds; no wheezing HEART: Regular rate and rhythm, S1, S2 without murmur, rub or gallop. ABDOMEN: Soft, nontender, nondistended, no guarding, no rebound; underwood in place EXTREMITIES: 2+ pulses, warm, well-perfused, no edema. Thin bones. No muscle tone. NEUROLOGICAL: Cranial nerves II through XII grossly intact. Normal speech. Laboratory Results - last 24 hr 08/28/16 06:55 Sodium 146 H Potassium 5.1 Chloride 110 H Carbon Dioxide 26 Anion Gap 10 BUN 61 H D Creatinine 1.2 Random Glucose 100 D Calcium 9.6 Active Medications Generic Name Dose Route Start Last Admin Trade Name Freq PRN Reason Stop Dose Admin Albuterol Sulfate 1 amp 08/22/16 19:48 Ventolin 0.083% Nebulizer Soln - NEB Q4H PRN SHORT OF BREATH/WHEEZING Albuterol/Ipratropium 1 amp 08/23/16 00:00 08/28/16 11:00 Duoneb - NEB 1 amp QIDR DEMETRIUS Administration Sodium Chloride 1,000 mls @ 125 mls/hr 08/28/16 14:00 08/28/16 15:10 Normal Saline - IV 125 mls/hr ASDIR DEMETRIUS Administration Levofloxacin 50 mls @ 50 mls/hr 08/29/16 10:00 Levaquin 250 Mg Premixed Ivpb - IVPB DAILY DEMETRIUS Nicotine 21 mg 08/23/16 10:00 08/28/16 10:42 Nicoderm Patch - TD 21 mg DAILY DEMETRIUS Administration ASSESSMENT/PLAN Assessment: This is a 70 year old male with PMHx of liver cirrhosis with ascites , polystubstance abuse, current ETOH abuse, COPD, current everyday smoker, and atonic bladder who was admitted for urinary retention. Found to have end stage cirrhotic liver disease with ascites, acute renal failure, and hypoxic respiratory failure. Acute hypoxic respiratory failure secondary to pneumonia vs. COPD exacerbation --on NIPPV @ 100%, satting low 90s --continue duonebs Severe sepsis secondary to pneumonia v. E.coli UTI v. both --hypotensive to 55/31; fluid resuscitating with NS --continue Levaquin; azithromycin course complete (08/20-08/25) Atonic bladder, acute urinary retention --s/p urethral dilation and underwood placement on 08/20 OLIVER multifactorial, resolved --Cr 1.2 Liver cirrhosis, ascites --s/p 7L drainage from paracentesis with albumin replacement Polysubstance abuse, alcohol abuse --no signs of withdrawal Severe malnutrition --BMI 16 --temporal wasting --pressure ulcers Dispo: patient declined [facility] bed yesterday; [place] bed available today but patient is now too unstable to transfer. Brother who is HCP at bedside. Wants supportive measures, including fluid resuscitation, but does not want ICU level of care. DNR/DNI. CODE STATUS: DNR/DNI Visit type - Emergency Visit Emergency Visit: Yes ED Registration Date: 08/20/16 Care time: The patient presented to the Emergency Department on the above date and was hospitalized for further evaluation of their emergent condition. - New Patient This patient is new to me today: No - Critical Care Critical Care patient: No
--- NOTE | 2016-08-28 17:36 | PN ---
Progress Note (short form) - Note Progress Note: Obtunded today. No response to noxious stimuli. Brother at the bedside. Patient is agonal breathing. Remains on NIPPV. Intake & Output 08/25/16 08/26/16 08/27/16 08/28/16 23:59 23:59 23:59 23:59 Intake Total 1969 2024 1060 0 Output Total 900 1050 300 300 Balance 1070 975 760 -300 Weight 109 lb 9.6 oz 110 lb 9.6 oz 113 lb 6 oz 113 lb 1 oz Last Vital Signs Temp Pulse Resp BP Pulse Ox 98.7 F 74 15 72/40 93 L 08/28/16 06:00 08/28/16 14:09 08/28/16 14:09 08/28/16 14:09 08/28/16 07:12 Active Medications Albuterol Sulfate (Ventolin 0.083% Nebulizer Soln -) 1 amp NEB Q4H PRN PRN Reason: SHORT OF BREATH/WHEEZING Albuterol/Ipratropium (Duoneb -) 1 amp NEB QIDR [facility] Last Admin: 08/28/16 17:24 Dose: 1 amp Sodium Chloride (Normal Saline -) 1,000 mls @ 125 mls/hr IV ASDIR DEMETRIUS Last Admin: 08/28/16 15:10 Dose: 125 mls/hr Levofloxacin (Levaquin 250 Mg Premixed Ivpb -) 50 mls @ 50 mls/hr IVPB DAILY DEMETRIUS Nicotine (Nicoderm Patch -) 21 mg TD DAILY [facility] Last Admin: 08/28/16 10:42 Dose: 21 mg Gen: cachectic, obtunded, agonal breathing Heart: RRR Lung: Bilateral rhonchi, no wheezing Abd: softly distended Ext: no edema Laboratory Results - last 24 hr 08/28/16 06:55 Sodium 146 H Potassium 5.1 Chloride 110 H Carbon Dioxide 26 Anion Gap 10 BUN 61 H D Creatinine 1.2 Random Glucose 100 D Calcium 9.6 A/P Acute Hypoxic Respiratory Failure Liver Cirrhosis Ascites s/p Large Volume Paracentesis ?Acute on Chronic Renal Failure Atonic Bladder UTI Alcohol Abuse COPD Atelectasis - Long discussion with brotherLux Mejia is at a very high risk of aspiration due to poor mental status. Will place on 100% NRBM and D/C NIPPV - aspiration precautions - Comfort/supportive measures - DNR/DNI Dr Murcia
[2016-08-29] MEDS: SODIUM CHLORIDE 1,000 ML IV SCH (06:54)
[2016-08-29 06:55] VITALS: BP 51/27; PULSE 68; TEMP 96
[2016-08-29] MEDS: ALBUTEROL SO4 2.5/IPRATROPIUM 0.5 INH SOL 3 ML VIAL.NEB. NEB SCH (07:25)
[2016-08-29] MEDS ORDERED: LEVOFLOXACIN 250 MG IVPB 50 ML IVPB SCH (10:00)
--- NOTE | 2016-08-29 12:56 | DS ---
Physical Exam: Summoned to patient's room. Found lying supine on bed. No respirations, no chest rise. No heart beat to auscultation. No corneal or gag reflex. Pronounced at 8:00am. HOSPITAL COURSE: Date of Admission:08/20/16 Date of Discharge: 08/29/16 70 year old male with PMHx of liver cirrhosis with ascites, polystubstance abuse , current ETOH abuse, COPD, current everyday smoker, and atonic bladder who was admitted for urinary retention. Found to have end stage cirrhotic liver disease with ascites, acute renal failure, and hypoxic respiratory failure. Acute hypoxic respiratory failure secondary to pneumonia vs. COPD exacerbation Severe sepsis secondary to pneumonia v. E.coli UTI v. both Atonic bladder, acute urinary retention OLIVER multifactorial, resolved --Cr 1.2 Liver cirrhosis, ascites Polysubstance abuse, alcohol abuse Severe malnutrition Minutes to complete discharge: 35 Discharge Summary Reason For Visit: ACUTE KIDNEY INJURY WEAKNESS - Instructions Disposition: - Home Medications Comprehensive Discharge Medication List: Ambulatory Orders Albuterol 2.5/Ipratropium 0.5 [Duoneb -] 1 amp NEB QIDR amp 08/27/16 Ceftriaxone [Rocephin 1Gm Ivpb (Pre-Docked)] 50 ml IVPB DAILY bag 08/27/16 Diphenhydramine [Benadryl Injection -] 25 mg IVPB HS PRN #0 vial 08/27/16 Lorazepam Injection [Ativan Injection -] 0.25 mg IVPUSH HS PRN #0.25 mg MDD 0.25 08/27/16 Morphine Injection - [Morphine Injection 2 mg/1 mL -] 2 mg IVPUSH Q4H PRN #2 mg MDD 12 08/27/16 Nicotine Patch [Nicoderm Patch -] 21 mg TD DAILY patch 08/27/16 Polyethylene Glycol 3350 [Miralax 119 gm Btl -] 17 gm PO DAILY bottle 08/27/16 This patient is new to me today: No Emergency Visit: Yes ED Registration Date: 08/20/16 Care time: The patient presented to the Emergency Department on the above date and was hospitalized for further evaluation of their emergent condition. Critical Care patient: No - Discharge Referral Referred to [facility] No
== END 2016-08-29 09:38 | disposition expired | DRG 871 ==
LOC: JER 22:42 → JERBED 08-20 05:40 → EDBD 08-20 05:40 → J4W 08-20 19:00 → JICU 08-21 11:40 → J5S 08-22 19:17
PROVIDERS: ADMIT Internal Medicine; ATTEND Nurse Practitioner Acute Care
PROC: 0T7D8ZZ Dilation of Urethra, Via Natural or Artificial Opening Endoscopic (ICD-10-PCS; 2016-08-20)
PROC: 0T9B80Z Drainage of Bladder with Drainage Device, Via Natural or Artificial Opening Endoscopic (ICD-10-PCS; 2016-08-20)
PROC: 5A09357 Assistance with Respiratory Ventilation, Less than 24 Consecutive Hours, Continuous Positive Airway Pressure (ICD-10-PCS; 2016-08-21)
PROC: 0W9G3ZX Drainage of Peritoneal Cavity, Percutaneous Approach, Diagnostic (ICD-10-PCS; principal; 2016-08-24)
DX: A41.9 Sepsis, unspecified organism (principal); J96.01 Acute respiratory failure with hypoxia; J18.9 Pneumonia, unspecified organism; E43 Unspecified severe protein-calorie malnutrition; L89.153 Pressure ulcer of sacral region, stage 3; L89.323 Pressure ulcer of left buttock, stage 3; N17.9 Acute kidney failure, unspecified; J44.1 Chronic obstructive pulmonary disease with (acute) exacerbation; R64 Cachexia; N39.0 Urinary tract infection, site not specified; Z68.1 Body mass index [BMI] 19.9 or less, adult; E87.0 Hyperosmolality and hypernatremia; J44.0 Chronic obstructive pulmonary disease with (acute) lower respiratory infection; R65.20 Severe sepsis without septic shock; R33.9 Retention of urine, unspecified; E87.5 Hyperkalemia; M10.9 Gout, unspecified; F17.210 Nicotine dependence, cigarettes, uncomplicated; N31.2 Flaccid neuropathic bladder, not elsewhere classified; R19.7 Diarrhea, unspecified; K70.31 Alcoholic cirrhosis of liver with ascites; F10.10 Alcohol abuse, uncomplicated; N18.9 Chronic kidney disease, unspecified; N35.9 Urethral stricture, unspecified; I95.9 Hypotension, unspecified; E88.09 Other disorders of plasma-protein metabolism, not elsewhere classified; Z66 Do not resuscitate; B96.20 Unspecified Escherichia coli [E. coli] as the cause of diseases classified elsewhere; R13.10 Dysphagia, unspecified; L89.521 Pressure ulcer of left ankle, stage 1
CPT/HCPCS: 36415; 36600; 71010-TC; 74176-TC; 76700-TC; 76775-TC; 76856-TC; 76942-TC; 80048; 80053; 80076; 81003; 81015; 82042; 82105; 82150; 82436; 82550; 82570; 82803; 82945; 82977; 83605; 83615; 83735; 83880; 84100; 84133; 84155; 84156; 84157; 84165; 84300; 84478; 84484; 85025; 85027; 85610; 85730; 87040; 87070; 87075; 87086; 87102; 87116; 87186; 87205; 87206; 87210; 87899; 88108; 88305-TC; 89051; 93005; 93010; 94640; 94660; 94760; 97161-GP; 99285-25; P9047